=== PATIENT | male | born 1995 | race African-American/Black ===

== ENCOUNTER 2021-07-20 20:48 | Inpatient (IN) | payer SELFPAY ==
--- NOTE | 2021-07-20 21:31 | RAD REPORT ---
EXAM DESCRIPTION: RAD - Chest Single View - 07/20/2021 9:25 pm CLINICAL HISTORY: Cough;Fever COMPARISON: <Comparisons> FINDINGS: Lines: None. Lungs: Retrocardiac consolidation. Pleural: No significant pleural effusions or pneumothorax. Cardiac: The heart size is within normal limits. Bones: No acute fractures. Other: IMPRESSION: Retrocardiac consolidation presumably representing pneumonia in the setting of fever.
[2021-07-20 21:33] LABS: Basophils % 0.5 % (0-1.3); Hematocrit 36.5 % (39.6-49.0); Lymphocytes % 5.2 % (15.3-44.8); MPV 6.3 fL (7.6-11.3); RBC Red Blood Cell Count 4.37 M/uL (4.33-5.43)
[2021-07-20] MEDS ORDERED: ONDANSETRON 4 MG/2 ML VIAL ONE (21:36)
[2021-07-20] MEDS ORDERED: ACETAMINOPHEN 500 MG TAB ONE (21:36)
[2021-07-20] MEDS ORDERED: NA CHLORIDE 0.9% 1,000 ML ONE (21:36)
[2021-07-20 21:52] LABS: BUN Blood Urea Nitrogen 12 mg/dL (7-18); Bicarbonate 25 mmol/L (21-32); Glucose Level 105 mg/dL (74-106); Potassium 3.7 mmol/L (3.5-5.1); Sodium Level 138 mmol/L (136-145)
[2021-07-20 22:11] LABS: SARS-COV-2 RT PCR NEGATIVE (NEGATIVE)
--- NOTE | 2021-07-20 22:35 | ER ---
[facility] Sl[facility] Age: 25 yrs Sex: Male : 1995 Arrival Date: 07/20/2021 Time: 20:51 Bed 16 Private MD: Diagnosis: Necrotizing Pneumonia with lung abscess Presentation: 07/20 20:56 Chief complaint: Patient states: SOB. Coronavirus screen: Vaccine status: Patient df1 reports receiving the 2nd dose of the covid vaccine. The client reports previous COVID testing was negative. Date of collection: January 2021. Ebola Screen: Patient negative for fever greater than or equal to 101.5 degrees Fahrenheit, and additional compatible Ebola Virus Disease symptoms Patient denies exposure to infectious person. Patient denies travel to an Ebola-affected area in the 21 days before illness onset. Initial Sepsis Screen: Does the patient meet any 2 criteria? No. Patient's initial sepsis screen is negative. Risk Assessment: Do you want to hurt yourself or someone else? Patient reports no desire to harm self or others. Onset of symptoms was June 30, 2021. 20:56 Method Of Arrival: Ambulatory df1 20:56 Acuity: TRUE 3 df1 20:59 Note Pt dx with pneumonia on 06/30/21. Completed antibiotics and steroids. Symptom's df1 have worsened. 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 Pain 10/10 left chest and vomiting x 4 days. 23:27 Initial Sepsis Screen: Does the patient have a suspected source of infection? Yes: lh3 Productive cough/pneumonia. Triage Assessment: 23:27 General: Appears in no apparent distress. Behavior is calm, cooperative, appropriate lh3 for age. Respiratory: Reports Onset: The symptoms/episode began/occurred today, the patient has mild shortness of breath. Historical: - Allergies: 20:58 No Known Allergies; df1 - Home Meds: 20:58 None [Active]; df1 - PMHx: 20:58 None; df1 - PSHx: 20:58 None; df1 - Immunization history:: Adult Immunizations not up to date, Client reports receiving the Mushtaq \T\ Mushtaq single-dose vaccine. - Social history:: Smoking status: Patient denies any tobacco usage or history of. Patient uses street drugs, marijuana. Screenin:28 Abuse screen: Denies threats or abuse. Nutritional screening: No deficits noted. lh3 Tuberculosis screening: No symptoms or risk factors identified. Fall Risk IV access (20 points). Assessment: 21:28 General: Appears in no apparent distress. Behavior is calm, cooperative, appropriate lh3 for age. Pain: Complains of pain in chest. Cardiovascular: Rhythm is regular. Respiratory: Airway is patent Respiratory effort is even, unlabored, Vital Signs: 20:56 BP 140 / 94; Pulse 122; Resp 20; Temp 100.4; Pulse Ox 99% on R/A; Weight 91.63 kg; df1 Height 6 ft. 1 in. (185.42 cm); Pain 10; 21:30 BP 122 / 77; Pulse 101; Resp 18; Pulse Ox 96% on R/A; lh3 23:29 BP 131 / 66; Pulse 89; Resp 18; Pulse Ox 97% on R/A; lh3 07/21 00:06 Temp 98.9(O); lh3 07/20 20:56 Body Mass Index 26.65 (91.63 kg, 185.42 cm) df1 ED Course: 07/20 20:51 Patient arrived in ED. bp1 20:52 Zo[facility] Black FNP-C [facility]. kb 20:52 Rodolfo Estes MD is Attending Physician. kb 20:58 Triage completed. df1 21:08 Ivone Browning, RN is Primary Nurse. lh3 21:20 Inserted saline lock: 20 gauge in left antecubital area, using aseptic technique. Blood lh3 collected. 21:25 Chest Single View XRAY In Process Unspecified. EDMS 21:28 Basic Metabolic Panel Sent. lh3 21:28 CBC with Diff Sent. lh3 21:28 No provider procedures requiring assistance completed. lh3 21:28 Patient has correct armband on for positive identification. Bed in low position. Side lh3 rails up X 1. Side rails up X2. Child being held by parent. 21:55 Notified Nurse Practitioner and/or Physician Supercharger Mechanic of a critical lab result(s), bb D-Dimer of [id number] Zoie Black PACKAGER notified. 22:26 Blood Culture Adult (2) Sent. lh3 22:34 Adi Marcelino is Hospitalizing Provider. kb 23:27 Arm band placed on. lh3 23:30 initiated a transfer with Geno from [facility]. mw2 23:35 connected Zoie Black PACKAGER with the Yard Demurrage Clerk from [facility]. mw2 23:56 administrative approval given by Geno Mendez/ patient has been accepted to [address] bed 1242/ Dr. Crow accepted the patient in transfer/ report to be called to [phone]. 07/21 00:27 Patient transferred, IV remains in place. lh3 Administered Medications: 07/20 21:28 Drug: NS 0.9% 1000 ml Route: IV; Rate: 1000 ml; Site: left antecubital; 3 23:30 Follow up: Response: No adverse reaction; IV Status: Completed infusion 3 21:28 Drug: Zofran (Ondansetron) 4 mg Route: IVP; Site: left antecubital; 3 21:44 Follow up: Response: No adverse reaction; Nausea is decreased 3 21:28 Drug: Tylenol 1000 mg Route: PO; 3 23:30 Follow up: Response: No adverse reaction 3 22:26 Drug: Rocephin (cefTRIAXone) 1 grams Route: IV; Rate: calculated rate; Site: left 3 antecubital; 23:30 Follow up: Response: No adverse reaction 3 23:30 Follow up: IV Status: Completed infusion 3 23:46 Dru.375 grams of (Zosyn (piperacillin-tazobactam) 3.375 grams, NS 0.9% 100 ml) 3 Route: IVPB; Infused Over: 60 mins; Site: left antecubital; 07/21 01:05 Follow up: Response: No adverse reaction; IV Status: Completed infusion 3 Outcome: 07/20 22:34 Decision to Hospitalize by Provider. kb 23:34 ER care complete, transfer ordered by . ruel 07/21 00:28 Transferred by ground EMS to [facility], Transfer form completed. 3 X-rays sent w/ patient. Condition: good Instructed on the need for admit. 01:04 Patient left the ED. 3 Signatures: Dispatcher [employer] EDMS Zoie Black, EVY ELLSWORTH-Dora Ward, RN RN Kemar Toribio 2 Brandee Hill Latisha, RN RN 3 Rosaura Almaguer df1 Corrections: (The following items were deleted from the chart) 07/20 21:28 Influenza Screen (A \T\ B)+BA.LAB.BRZ drawn and sent. 3 EDMS 21: CORONAVIRUS+MR.LAB.BRZ drawn and sent. 3 EDMS 07/21 00:28 07/20 21:28 Patient has correct armband on for positive identification. Bed in low 3 position. Side rails up X 1. Side rails up X2. Child being held by parent. 3
--- NOTE | 2021-07-20 22:35 | EDPHYS ---
Physician Documentation [facility] Name: Slava Molina Age: 25 yrs Sex: Male : 1995 Arrival Date: 07/20/2021 Time: 20:51 Bed 16 Private MD: ED Physician Rodolfo Estes HPI: 07/20 21:47 This 25 yrs old Black Male presents to ER via Ambulatory with complaints of Breathing kb Difficulty, Abdominal Pain. 21:47 The patient's shortness of breath is aggravated by nothing, is alleviated by nothing. kb Associated signs and symptoms: Pertinent positives: chest pain, non-productive cough, fever, nausea, vomiting. Severity of symptoms: At their worst the symptoms were moderate in the emergency department the symptoms are unchanged. The patient has not experienced similar symptoms in the past. The patient has not recently seen a physician. 21:48 The patient or guardian reports cough, that is intermittent, described as moderate. kb Onset: The symptoms/episode began/occurred 2 week(s) ago. Severity of symptoms: At their worst the symptoms were moderate, in the emergency department the symptoms are unchanged. Modifying factors: The symptoms are alleviated by nothing, the symptoms are aggravated by nothing. Associated signs and symptoms: Pertinent positives: fever, nausea, vomiting. Pt reports he was diagnosed with pneumonia in the left lower lung 2 weeks ago. Took a course of zithromax, but is still having pain, cough, shortness of breath and fever. States he developed nausea and vomiting 4 days ago and hasn't been able to tolerate anything by mouth. Historical: - Allergies: 20:58 No Known Allergies; df1 - Home Meds: 20:58 None [Active]; df1 - PMHx: 20:58 None; df1 - PSHx: 20:58 None; df1 - Immunization history:: Adult Immunizations not up to date, Client reports receiving the Mushtaq \T\ Mushtaq single-dose vaccine. - Social history:: Smoking status: Patient denies any tobacco usage or history of. Patient uses street drugs, marijuana. ROS: 21:46 Cardiovascular: Negative for chest pain, palpitations, and edema. kb 21:46 Constitutional: Positive for fever, malaise. 21:46 Respiratory: Positive for cough, pleurisy, shortness of breath. 21:46 Abdomen/GI: Positive for nausea and vomiting. 21:46 All other systems are negative. Exam: 21:47 Constitutional: This is a well developed, well nourished patient who is awake, alert, kb and in no acute distress. Head/Face: Normocephalic, atraumatic. ENT: Moist Mucous membranes Cardiovascular: Regular rate and rhythm with a normal S1 and S2. No gallops, murmurs, or rubs. No pulse deficits. Respiratory: Respirations even and unlabored. No increased work of breathing, no retractions or nasal flaring. Abdomen/GI: Soft, non-tender. No distention Skin: Warm, dry with normal turgor. Normal color. MS/ Extremity: Pulses equal, no cyanosis. Neurovascular intact. Full, normal range of motion. Neuro: Awake and alert, GCS 15, oriented to person, place, time, and situation. Moves all extremities. Normal gait. Psych: Awake, alert, with orientation to person, place and time. Behavior, mood, and affect are within normal limits. Vital Signs: 20:56 BP 140 / 94; Pulse 122; Resp 20; Temp 100.4; Pulse Ox 99% on R/A; Weight 91.63 kg; df1 Height 6 ft. 1 in. (185.42 cm); Pain 10/10; 21:30 BP 122 / 77; Pulse 101; Resp 18; Pulse Ox 96% on R/A; lh3 23:29 BP 131 / 66; Pulse 89; Resp 18; Pulse Ox 97% on R/A; lh3 07/21 00:06 Temp 98.9(O); lh3 07/20 20:56 Body Mass Index 26.65 (91.63 kg, 185.42 cm) df1 MDM: 07/20 20:58 Patient medically screened. kb 21:46 Data reviewed: vital signs, nurses notes. Data interpreted: Pulse oximetry: on room air kb is 99 %. Interpretation: normal. 21:52 Counseling: I had a detailed discussion with the patient and/or guardian regarding: the kb historical points, exam findings, and any diagnostic results supporting the discharge/admit diagnosis, lab results, radiology results, the need for further work-up and treatment in the hospital. Physician consultation: Mao OLEARY was contacted at 21:52, regarding admission, to the medical/surgical unit. patient's condition, and will see patient in ED, shortly. 23:31 ED course: Ct reports revealed necrotizing pneumonia with lung abscess. Will transfer kb pt for higher level of care. 23:34 ED course: Dr Hernandez, marketing ambassador at [facility], accepts pt for consult.. kb 23:53 ED course: Dr Crow, hospitalist at [facility], accepts pt for transfer. kb 07/21 00:00 Differential diagnosis: pneumonia, Pneumothorax pulmonary edema, Pulmonary Embolism rn Sepsis. Antibiotic administration:. The patient's pulmonary embolism risk score was calculated as follows: the patients heart rate is greater than 100 beats per minute (1.5 Pts) Total Score: 0-2 points. This patient was found to be at low risk for a pulmonary embolism by using the Well's assessment criteria. Response to treatment: the patient's symptoms have mildly improved after treatment, and as a result, I will admit patient. 07/20 21:03 Order name: CBC with Diff; Complete Time: 23:08 kb 07/20 21:03 Order name: Basic Metabolic Panel; Complete Time: 21:52 kb 07/20 21:03 Order name: D-Dimer; Complete Time: 21:57 kb 07/20 21:40 Order name: Blood Culture Adult (2) kb 07/20 21:03 Order name: Chest Single View XRAY; Complete Time: 21:36 kb 07/20 21:55 Order name: CT Chest For PE Angio kb 07/20 22:11 Order name: COVID-19/FLU A+B; Complete Time: 22:14 EDMS 07/20 23:07 Order name: Manual Differential; Complete Time: 23:08 EDMS 07/20 21:03 Order name: IV Start; Complete Time: 21:28 kb 07/20 23:12 Order name: Vital Signs; Complete Time: 23:26 kb Administered Medications: 07/20 21:28 Drug: NS 0.9% 1000 ml Route: IV; Rate: 1000 ml; Site: left antecubital; 3 23:30 Follow up: Response: No adverse reaction; IV Status: Completed infusion lh3 21:28 Drug: Zofran (Ondansetron) 4 mg Route: IVP; Site: left antecubital; lh3 21:44 Follow up: Response: No adverse reaction; Nausea is decreased lh3 21:28 Drug: Tylenol 1000 mg Route: PO; 3 23:30 Follow up: Response: No adverse reaction 3 22:26 Drug: Rocephin (cefTRIAXone) 1 grams Route: IV; Rate: calculated rate; Site: left [facility] antecubital; 23:30 Follow up: Response: No adverse reaction 3 23:30 Follow up: IV Status: Completed infusion 3 23:46 Dru.375 grams of (Zosyn (piperacillin-tazobactam) 3.375 grams, NS 0.9% 100 ml) [facility] Route: IVPB; Infused Over: 60 mins; Site: left antecubital; 07/21 01:05 Follow up: Response: No adverse reaction; IV Status: Completed infusion [facility] Disposition: 00:00 Co-signature as Attending Physician, Rodolfo Estes MD I agree with the assessment and rn plan of care. PA/HOME CARE SCHEDULER's history reviewed, patient interviewed, and examined. HPI: 25-year-old male with recent diagnosis of pneumonia and status post antibiotics presents with worsening of symptoms. Denies smoking. Denies having any immunodeficiency. No family history of immunodeficiency. Not diabetic. Covid negative. My personal exam of patient reveals: Thin male, no acute distress, left-sided splinting with deep breath I agree with assessment and care plan and confirm the diagnosis (es) above. Disposition Summary: 07/20/21 23:34 Transfer Ordered Transfer Location: [facility] kb Reason: Higher level of care kb Condition: Stable(07/20/21 23:34) kb Problem: an ongoing problem(07/20/21 23:34) kb Symptoms: are unchanged(07/20/21 23:34) kb Accepting Physician: Dr. Crow(07/21/21 01:04) 3 Diagnosis - Necrotizing Pneumonia with lung abscess kb Forms: - Medication Reconciliation Form kb - SBAR form kb Signatures: Dispatcher [employer] Zoie Franco, COMMERCIAL REAL ESTATE ASSOCIATE-C COMMERCIAL REAL ESTATE ASSOCIATE-Rodolfo Landon MD MD rn Basinger, Emily, RN RN eb1 Ivone Browning RN RN lh3 Rosaura Almaguer df1 Corrections: (The following items were deleted from the chart) 07/20 21:31 21:03 CORONAVIRUS+MR.LAB.BRZ ordered. EDWA AUGUSTIN 21:03 Influenza Screen (A \T\ B)+BA.LAB.BRZ ordered. EDMS EDMS 23:10 22:34 kb eb1 23:13 23:10 204 eb1 eb1 23:31 22:34 Observation kb kb :31 22:34 Adi Marcelino kb kb :31 22:34 Telemetry/MedSurg (observation) kb kb : 22:34 Stable kb kb : 22:34 new kb kb 23:31 22:34 are unchanged kb kb 23:31 22:34 Standard kb kb 23:31 22:34 Pneumonia, unspecified organism - failed outpatient treatment kb kb : 23:13 eb1 kb 23:54 23:34 Dr lipscomb kb 07/21 01:04 07/20 23:54 Dr. Crow kb lh3
[2021-07-20] MEDS ORDERED: CEFTRIAXONE 1000 MG/VIAL ONE (22:41)
[2021-07-20 23:07] LABS: Blood Morphology Comment NOT SEEN (NOT SEEN); Platelet Estimate INCR
[2021-07-21] MEDS ORDERED: PIPERACIL/TAZO 3.375 GM VIAL IV ONE (00:04)
[2021-07-21] MEDS ORDERED: NA CHLORIDE 0.9% 100 ML ONE (00:04)
[2021-07-21 01:14] VITALS: BP 131/66; O2SAT 97
[2021-07-21 01:15] VITALS: TEMP 98.9
--- NOTE | 2021-07-21 13:27 | RAD REPORT ---
EXAM DESCRIPTION: CT - Chest For Pe Angio - 07/21/2021 6:17 am CLINICAL HISTORY: Chest pain;Dyspnea COMPARISON: None Available. TECHNIQUE: CTA of the chest obtained following the uncomplicated intravenous administration of iodin ated contrast. 3-D/MIP reformatted images of the chest available for evaluation. This exam was perfor med according to our departmental dose-optimization program, which includes automated exposure contro l, adjustment of the mA and/or kV according to patient size and/or use of iterative reconstruction te [place]. FINDINGS: Chest: Pulmonary arteries: Contrast bolus is adequate.No filling defects identified in the pulmonary arterie s to suggest pulmonary embolus. Thyroid: No abnormalities of the visualized thyroid. Great Vessels: Great vessels have normal anatomic configuration. Thoracic Aorta: No abnormalities of the thoracic aorta identified. Heart: No cardiomegaly, significant pericardial effusion, or coronary artery atherosclerosis Lymph Nodes: No enlarged mediastinal lymph nodes identified. Esophagus: No abnormalities of the esophagus identified. Other: No additional findings. Lungs: Dense consolidation in the left lower lobe with decreased enhancement and air bronchograms. Th ere is an air fluid level in the anterior aspect of the consolidation measuring approximately 3.9 x 2 .5 cm. Pleura: Small left pleural effusion. No pneumothorax. Trachea/Airways: No abnormalities of the visualized trachea or airways. Bones: No destructive osseous lesions. Upper Abdomen: Limited images of the upper abdomen demonstrate no definite abnormalities of visualize d portions of the liver and spleen. IMPRESSION: 1. No pulmonary embolism. 2. Dense consolidation in the left lower lobe with decreased enhancement and air bronchograms. Ther e is an air fluid level in the anterior aspect of the consolidation measuring approximately 3.9 x 2.5 cm. Findings concerning for necrotizing pneumonia with lung abscess. 3. Small left pleural effusion. Electronically signed by: Humberto Davila 07/20/2021 10:46 PM CDT Due to temporary technical issues with the PACS/Fluency reporting system, reports are being signed by the in house radiologists without review as a courtesy to insure prompt reporting. The interpreting radiologist is fully responsible for the content of the report.
== END 2021-07-22 01:00 | disposition home or self-care (01) | DRG 179 ==
LOC: ER 20:48 → ERHOLD 22:20 → OBSVTOIN 07-21 21:46
PROVIDERS: ADMIT Internal Medicine; ATTEND Internal Medicine
DX: J85.1 Abscess of lung with pneumonia (principal); Z20.822 Contact with and (suspected) exposure to COVID-19
CPT/HCPCS: 0240U; 36415; 71045; 71275; 80048; 85025; 85379; 87040; 96361; 96365; 96367; 96375; 99285; G0378; J2405; J2543; J7030; Q9967

== ENCOUNTER 2021-11-15 23:06 | Inpatient (IN) | payer SELFPAY ==
--- OUTSIDE RECORDS SUMMARY | 2021-11-15 23:13 | XMS REPORT | Continuity of Care Document ---
:1995 Author Organization [facility] t Address [address] [place] [address] Care Team Providers Name Role Phone Isaac KIRK Attending Clinician JAQUELINE Attending Clinician Unavailable DANI TALLEY Attending Clinician Unavailable ASHLEY ENNIS Attending Clinician Unavailable FAITH ROBERTS Attending Clinician Unavailable FANG Attending Clinician Unavailable SHY Admitting Clinician Unavailable Payers Payer Name Policy Type Policy Number Effective Date Expiration Date S [facility] CARE - [id number] GENERIC - ADEEL CARE Problems Condition Condition Condition Status Onset Resolution Last Treating Co mments Source Name Details Category Date Date Treatment Clinician Date 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 00:00: of 00 Medicin e Dysphonia Dysphonia Disease Active 2020-10 Real marcia 1-10 College 00:00: of 00 Medicin e Empyema, Empyema, Disease Active 2020-10 Reallo r left left 1-10 [facility]:00: of 00 Medicin e Dysphagia Dysphagia Disease Active 2020-10 Real marcia 1-09 College 00:00: of 00 Medicin e Torticolli Torticolli Disease Active 2020-10 [facility] s, acute s, acute 0-29 Colleg e 00:00: of 00 Medicin e ARDS ARDS Disease Active 2020-10 [facility] (adult (adult 0-25 College respirator respirator 00:00: of y distress y distress 00 Me dicin syndrome) syndrome) e (HCCode) (HCCode) Acute Acute Disease Active 2020-10 [facility] hypoxemic hypoxemic 0-25 [facility] respirator respirator 00:00: of y failure y failure 00 Medi debra (HCCode) (HCCode) e Acute Acute Disease Active 2020-10 [facility] metabolic metabolic 0-25 [place] [facility] encephalop encephalop 00:00: of athy athy 00 Medicin e Necrotizin Necrotizin Disease Active 2020-10 B aylor g g 0-21 [place] pneumonia pneumonia 00:00: [facility] 00 Medici n e Allergies, Adverse Reactions, Alerts Allergy Allergy Status Severity Reaction(s) Onset Inactive Treating Comm ents Source Name Type Date Date Clinician NO KNOWN Allergy Active [facility] Social History Social Habit Start Date Stop Date Quantity Comments Source History [facility] ge Alcohol Binge of Medicine History [facility] ge Alcohol Comment of Medici ne History [facility] ge Alcohol Std Drinks of Med icine Alcohol intake 2021-09-15 2021-09-15 Lifetime [facility] Col lege 00:00:00 00:00:00 non-drinker of Medicine (finding) Tobacco use and 2021-08-18 2021-08-18 Smokeless tobacco [facility] exposure 00:00:00 00:00:00 non-user of Medicine History [facility] 2021-08-18 2021-08-18 1 [facility] ge Alcohol Frequency 00:00:00 00:00:00 of Medi cine Sex Ass[birth year] [facility] Co llege 00:00:00 00:00:00 of Medicine Smoking Status Start Date Stop Date Source Never smoked tobacco [facility] [place] of Medicine Medications Ordered Filled Start Stop Current Ordering Indication Dosage Frequency Signature Comments Components Source Medication Medication Date Date Medication? Clinician (SIG) Name Name acetaminoph 2020-10 Yes [id number] 12.5mL Take 12.5 [facility] en-codeine 1-18 mL by College 120-12 mg/5 00:00: mouth of mL solution 00 every 6 Medic in hours as e needed for Pain. acetaminoph 2020-10 Yes [id number] 12.5mL Take 12.5 [facility] en-codeine 1-18 mL by College 120-12 mg/5 00:00: mouth of mL solution 00 every 6 Medic in hours as e needed for Pain. mupirocin 2020-10 No 1g Apply 1 g [facility] (BACTROBAN) 10-16 11-24 topically Co llege 2 % 00:00: 05:59 daily. of ointment 00 :00 Medicin e ondansetron 2020-10 Yes as needed. [facility] (ZOFRAN) 4 1-14 College MG/5ML 00:00: of solution 00 Medicin e ondansetron 2020-10 Yes as needed. [facility] (ZOFRAN) 4 1-14 College MG/5ML 00:00: of solution 00 Medicin e amoxicillin 2020-10- No 10mL Take 10 mL Gama -clavulanat 10-11 11-28 by mouth Col lege e 00:00: 05:59 two times of (AUGMENTIN) 00 :00 daily. Medici n 400-57 e MG/5ML suspension traMADol 2020-10 No 100mg Take 100 Real marcia HCl 100 MG 10-11 11-18 mg by College TABS 00:00: 00:00 mouth. of 00 :00 Medicin e Immunizations Ordered Immunization Filled Immunization Date Status Commen ts Source Name Name [facility] 2021-03-04 Completed [facility] Del mayorga SARS-CoV-2 00:00:00 of Medicine Vaccination [employer] 2021-03-04 Completed [facility] stan SARS-CoV-2 00:00:00 of Medicine Vaccination Vital Signs Vital Name Observation Time Observation Value Comments Source Systolic blood 2021-09-15 18:07:00 123 mm[Hg] [facility] pressure Medicine Diastolic blood 2021-09-15 18:07:00 81 mm[Hg] [facility] Medicine Heart rate 2021-09-15 18:07:00 58 /min [facility] Body temperature 2021-09-15 18:07:00 37.06 [facility] Body height 2021-09-15 18:07:00 182.9 cm [facility] Body weight 2021-09-15 18:07:00 89.359 kg [facility] BMI 2021-09-15 18:07:00 26.72 kg/m2 [facility] Systolic blood 2021-08-18 20:59:00 134 mm[Hg] [facility] pressure Medicine Diastolic blood 2021-08-18 20:59:00 85 mm[Hg] [facility] pressure Medicine Heart rate 2021-08-18 20:59:00 79 /min [facility] Body temperature 2021-08-18 20:59:00 36.94 [facility] Body height 2021-08-18 20:59:00 182.9 cm [facility] Body weight 2021-08-18 20:59:00 85.73 kg [facility] BMI 2021-08-18 20:59:00 25.63 kg/m2 [facility] HEIGHT 2021-08-16 11:39:00 180.3 cm WEIGHT 2021-08-16 11:39:00 84.823 kg HEIGHT 2021-08-13 20:20:00 180.3 cm HEIGHT 2021-08-13 20:20:00 180.3 cm WEIGHT 2021-08-08 09:12:00 63.1 kg WEIGHT 2021-07-30 07:00:00 87.5 kg WEIGHT 2021-07-28 22:00:00 89.2 kg WEIGHT 2021-07-28 07:00:00 92.4 kg WEIGHT 2021-07-27 07:00:00 92.4 kg WEIGHT 2021-07-27 06:00:00 92.4 kg WEIGHT 2021-07-26 06:00:00 92.1 kg HEIGHT 2021-07-21 02:45:00 185.4 cm WEIGHT 2021-07-21 02:45:00 92.08 kg WEIGHT 2021-08-08 09:12:00 63.1 kg WEIGHT 2021-07-30 07:00:00 87.5 kg WEIGHT 2021-07-28 22:00:00 89.2 kg WEIGHT 2021-07-28 07:00:00 92.4 kg WEIGHT 2021-07-27 07:00:00 92.4 kg WEIGHT 2021-07-27 06:00:00 92.4 kg WEIGHT 2021-07-26 06:00:00 92.1 kg HEIGHT 2021-07-21 02:45:00 185.4 cm WEIGHT 2021-07-21 02:45:00 92.08 kg Procedures This patient has no known procedures. Plan of Care Planned Activity Planned Date Details Comments Source Future Scheduled 2021-09-20 HPV VACCINE (1 - [facility] of Test 10:15:34 Male 2-dose series) Medicine [code = HPV VACCINE (1 - Male 2-dose series)] Future Scheduled 2021-09-20 BMI FOLLOW UP PLAN [facility] of Test 10:15:34 [code = BMI FOLLOW Medicine UP PLAN] Future Scheduled 2021-09-20 Hepatitis C [facility] [place] [facility] of Test 10:15:34 screening Medicine (procedure) [code = 729120999] Future Scheduled 2021-09-20 TETANUS SHOT (ADULT) [facility] of Test 10:15:34 [code = TETANUS SHOT Medicin e (ADULT)] Future Scheduled 2021-09-20 COVID-19 Vaccine (2 [facility] or [facility] of Test 10:15:34 - Booster for Medicine Alexa series) [code = COVID-19 Vaccine (2 - Booster for Alexa series)] Future Scheduled 2021-09-20 FLU VACCINE > 6 [facility] C [facility]lege of Test 10:15:34 MONTHS [code = FLU Medicine VACCINE > 6 MONTHS] Future Scheduled 2021-08-27 HPV VACCINE (1 - [facility] of Test 09:41:27 Male 2-dose series) Medicine [code = HPV VACCINE (1 - Male 2-dose series)] Future Scheduled 2021-08-27 BMI FOLLOW UP PLAN [facility] of Test 09:41:27 [code = BMI FOLLOW Medicine UP PLAN] Future Scheduled 2021-08-27 Hepatitis C [facility] [place] [facility] of Test 09:41:27 screening Medicine (procedure) [code = 651497702] Future Scheduled 2021-08-27 TETANUS SHOT (ADULT) [facility] of Test 09:41:27 [code = TETANUS SHOT Medicin e (ADULT)] Future Scheduled 2021-08-27 COVID-19 Vaccine (2 [facility] of Test 09:41:27 - Booster for Medicine Alexa series) [code = COVID-19 Vaccine (2 - Booster for Alexa series)] Future Scheduled 2021-08-27 FLU VACCINE > 6 [facility] C [facility]lege of Test 09:41:27 MONTHS [code = FLU Medicine VACCINE > 6 MONTHS] Encounters Start End Encounter Admission Attending Care Care Encounter Source Date/Time Date/Time Type Type Clinicians Facility Department ID 2021-09-15 2021-09-15 Office JALYN Gray [id number] [facility] 11:45:00 15:01:14 Visit Jose AMBULATOR [id number] College Y [id number] of [id number] [facility] 810 e 2021-08-18 2021-08-18 Office MIKE Gray [id number] [facility] 14:30:00 16:35:53 Visit Jose AMBULATOR [id number] College Y [id number] of [id number] [facility] 810 e 2021-08-16 2021-08-16 Outpatient [facility] [id number] [facility] 10:51:26 10:51:26 JALEESA 2021-08-13 2021-08-13 Emergency ER MAYANK [facility] Emergency [id number] SLE 20:24:00 23:23:00 RABIA 2021-07-21 2021-08-11 Inpatient ER ARMANDO [facility] Pulmonology [id number] SLE 01:59:00 15:51:00 TRACY 2021-08-09 2021-08-09 Outpatient JAQUELINE [facility] [id number] SLE 00:00:00 00:00:00 JALEESA 2021 2021 Outpatient BELLA PARSONS [facility] [id number] SLE 00:00:00 00:00:00 JALEESA 2021-07-21 2021-07-21 Outpatient [facility] [id number] [facility] 01:59:00 23:59:00 Colleg e of Medicin e 2021-07-21 2021-07-21 Outpatient [facility] [id number] [facility] 01:59:00 01:59:00 Colleg e of Medicin e 2020-05-10 2020-05-10 Emergency FANG, [facility] 064 [id number] [place] 00:00:00 00:00:[address] MARITZA [address] Results Test Description Test Time Test Comments Results Result Comments Source BLOOD CULTURE, AFB ISOLATOR 2021-09-16 13:19:18 Test Item Value Reference Range Interpretation Comme nts CULTURE (BEAKER) (test code = 1095) No acid-fast bacilli isolated i n 42 days AFB CULTURE + SMEAR (NON-SPUTUM)2021-09-16 13:18:08 Test Item Value Reference Range Interpretation Comments CULTURE (BEAKER) (test No acid-fast bacilli code = 1095) isolated in 42 days AFB SMEAR (BEAKER) No acid fast bacilli (test code = 994) seen FUNGUS CULTURE + [id number] 09:00:56 Test Item Value Reference Interpretation Comments Range CULTURE (BEAKER) A <1+ Odalys albicans (test code = 1095) CULTURE (BEAKER) MYCOBACTERIUM A Mycobacter [facility] speciesMost (test code = 1095) SPECIES closely r esembles* - Mycobacterium phocaicumIdenti fication and susceptibil ity performed by:[facility], Dept. of Microb iology Research, Dr[facility], [address] [place] [address] [place] [id number] Amikacin (test code mcg/mL S = 1) Cefoxitin (test mcg/mL S code = 68) Ciprofloxacin (test mcg/mL I code = 7) Clarithromycin S (test code = 42) Doxycycline (test mcg/mL S code = 15) Imipenem (test code mcg/mL S = 19) Linezolid (test mcg/mL S code = 40) Moxifloxacin (test mcg/mL S code = 36) Tigecycline (test mcg/mL See_Comment [Automate d message] The code = 133) system which ge nerated this result tra nsmitted reference range : Susceptible >0- 0 mcg/mL, No Interpretati ons Established <=0 . The reference range was not used to interpr et this result as normal/abnormal . 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 This species is from the M.mucogenicum group and is not recognized as a cause of chronic lung disease.AFB CULTURE + SMEAR (NON-SPUTUM)2021-09-09 11:47:07 Test Item Value Reference Range Interpretation Comments CULTURE (BEAKER) (test No acid-fast bacilli code = 1095) isolated in 42 days AFB SMEAR (BEAKER) No acid fast bacilli (test code = 994) seen AFB CULTURE + SMEAR (NON-SPUTUM)2021-09-09 11:47:05 Test Item Value Reference Range Interpretation Comments CULTURE (BEAKER) (test No acid-fast bacilli code = 1095) isolated in 42 days AFB SMEAR (BEAKER) No acid fast bacilli (test code = 994) seen FUNGUS CULTURE + [id number] 23:23:49 Test Item Value Reference Range Interpretation Comments CULTURE (BEAKER) (test No fungus isolated in code = 1095) 28 days FUNGUS SMEAR (BEAKER) No fungi seen (test code = 1406) FUNGUS CULTURE + [id number] 01:47:26 Test Item Value Reference Range Interpretation Comments CULTURE (BEAKER) (test No fungus isolated in code = 1095) 28 days FUNGUS SMEAR (BEAKER) No fungal elements seen (test code = 1406) RAD, CHEST, 1 VIEW, NON [id number] 22:26:00Reason for exam:->NAUSEAReason for exam:->EMESISShould this be performed at the bedside?->Yes [facility] 1995 Sex: MFINAL REPORT Chest one view. Clinical history: Nausea and emesis. Comparison: Chest radiograph 08/11/2021. Technique: A single frontal view of the chest was obtained. Findings: The cardiomediastinal contours are normal. There is a small left pleural effusion. There is airspace opacity in the left lung base, which may represent atelectasis and/or pneumonia. There isno pneumothorax or pulmonary edema.The patient's hand partially obscures the upper abdomen.The osseous structures are unremarkable. Impression: Small left pleural effusion.Left lower lobe opacity, which may represent atelectasis and/or pneumonia. Signed: Nayely Lanzaeport Verified Date/Time: 08/13/2021 22:26:46 [id number] 21:53:44 Test Item Value Reference Range Interpretation Comments LIPASE (BEAKER) (test code = 749) 29 U/L 8-78 Branch Billing Payroll Clerk ID - DBBASIC METABOLIC [id number] 21:53:43 Test Item Value Reference Range Interpretation Comments SODIUM (BEAKER) 137 meq/L 136-145 (test code = 381) POTASSIUM (BEAKER) 3.8 meq/L 3.5-5.1 (test code = 379) CHLORIDE (BEAKER) 100 meq/L 98-107 (test code = 382) CO2 (BEAKER) (test 26 meq/L 22-29 code = 355) BLOOD UREA NITROGEN 6 mg/dL 7-21 L (BEAKER) (test code = 354) CREATININE (BEAKER) 0.66 mg/dL 0.57-1.25 (test code = 358) GLUCOSE RANDOM 92 mg/dL 70-105 (BEAKER) (test code = 652) CALCIUM (BEAKER) 9.2 mg/dL 8.4-10.2 (test code = 697) EGFR (BEAKER) (test 178 mL/min/1.73 ESTIM ATED GFR IS code = 1092) sq m NOT ACCURATE CREATININE CLEARANCE IN PREDICTING GLOMERULAR FILTRATION RATE . ESTIMATED GFR I S NOT APPLICABLE FOR DIALYSIS PATIEN TS. Branch Billing Payroll Clerk ID - DBHEPATIC FUNCTION [id number] 21:53:43 Test Item Value Reference Range Interpretation Comments TOTAL PROTEIN (BEAKER) (test code = 7.8 gm/dL 6.0-8.3 770) ALBUMIN (BEAKER) (test code = 1145) 3.6 g/dL 3.5-5.0 BILIRUBIN TOTAL (BEAKER) (test code 0.8 mg/dL 0.2-1.2 = 377) BILIRUBIN DIRECT (BEAKER) (test 0.4 mg/dL 0.1-0.5 code = 706) ALKALINE PHOSPHATASE (BEAKER) (test 65 U/L 40-150 code = 346) AST (SGOT) (BEAKER) (test code = 19 U/L 5-34 353) ALT (SGPT) (BEAKER) (test code = 21 U/L 6-55 347) Branch Billing Payroll Clerk ID - DBCBC W/PLT COUNT & AUTO [id number] 21:41:43 Test Item Value Reference Range Interpretation Comments WHITE BLOOD CELL COUNT (BEAKER) 7.1 K/ L 3.5-10.5 (test code = 775) RED BLOOD CELL COUNT (BEAKER) 4.16 M/ L 4.63-6.08 L (test code = 761) HEMOGLOBIN (BEAKER) (test code = 11.8 GM/DL 13.7-17.5 L 410) HEMATOCRIT (BEAKER) (test code = 37.1 % 40.1-51.0 L 411) MEAN CORPUSCULAR VOLUME (BEAKER) 89.2 fL 79.0-92.2 (test code = 753) MEAN CORPUSCULAR HEMOGLOBIN 28.4 pg 25.7-32.2 (BEAKER) (test code = 751) MEAN CORPUSCULAR HEMOGLOBIN CONC 31.8 GM/DL 32.3-36.5 L (BEAKER) (test code = 752) RED CELL DISTRIBUTION WIDTH 13.8 % 11.6-14.4 (BEAKER) (test code = 412) PLATELET COUNT (BEAKER) (test 415 K/CU MM 150-450 code = 756) MEAN PLATELET VOLUME (BEAKER) 8.2 fL 9.4-12.4 L (test code = 754) NUCLEATED RED BLOOD CELLS 0 /100 WBC 0-0 (BEAKER) (test code = 413) NEUTROPHILS RELATIVE PERCENT 59 % (BEAKER) (test code = 429) LYMPHOCYTES RELATIVE PERCENT 23 % (BEAKER) (test code = 430) MONOCYTES RELATIVE PERCENT 8 % (BEAKER) (test code = 431) EOSINOPHILS RELATIVE PERCENT 9 % (BEAKER) (test code = 432) BASOPHILS RELATIVE PERCENT 1 % (BEAKER) (test code = 437) NEUTROPHILS ABSOLUTE COUNT 4.17 K/ L 1.78-5.38 (BEAKER) (test code = 670) LYMPHOCYTES ABSOLUTE COUNT 1.67 K/ L 1.32-3.57 (BEAKER) (test code = 414) MONOCYTES ABSOLUTE COUNT (BEAKER) 0.60 K/ L 0.30-0.82 (test code = 415) EOSINOPHILS ABSOLUTE COUNT 0.62 K/ L 0.04-0.54 H (BEAKER) (test code = 416) BASOPHILS ABSOLUTE COUNT (BEAKER) 0.06 K/ L 0.01-0.08 (test code = 417) IMMATURE GRANULOCYTES-RELATIVE 0 % 0-1 PERCENT (BEAKER) (test code = 2801) RAD, CHEST, 1 VIEW, NON [id number] 09:55:00Reason for exam:->follow-upShould this be performed at the bedside?->Yes [facility] 1995 Sex: MFINAL REPORT CHEST AP PORTABLE COMPARISON STUDY: 08/07/2021 History provided: Follow-up assessment Heart size normal. Lungs clear and vascularity normal. Midline in place on the left with catheter tip at the level of the axillary vein. Signed: Jean Paul Ortega MDReport Verified Date/Time: 08/11/2021 09:55:03 Reading Location: [facility] Radiology Reading Room POCT-GLUCOSE [id number] 06:20:48 Test Item Value Reference Range Interpretation Comments POC-GLUCOSE METER 96 mg/dL 70-110 : TESTED A T [facility] 6720 (BEAKER) (test code = [place], 1538) [id number]: Branch Billing Payroll Clerk/Techni mayela ID = [id number] for SINA RIOS [id number] 05:30:55 Test Item Value Reference Range Interpretation Comments PHOSPHORUS (BEAKER) (test code = 4.9 mg/dL 2.3-4.7 H 604) Branch Billing Payroll Clerk ID - ROSS MBASIC METABOLIC [id number] 05:30:54 Test Item Value Reference Range Interpretation Comments SODIUM (BEAKER) 139 meq/L 136-145 (test code = 381) POTASSIUM (BEAKER) 3.5 meq/L 3.5-5.1 (test code = 379) CHLORIDE (BEAKER) 103 meq/L 98-107 (test code = 382) CO2 (BEAKER) (test 26 meq/L 22-29 code = 355) BLOOD UREA NITROGEN 8 mg/dL 7-21 (BEAKER) (test code = 354) CREATININE (BEAKER) 0.65 mg/dL 0.57-1.25 (test code = 358) GLUCOSE RANDOM 87 mg/dL 70-105 (BEAKER) (test code = 652) CALCIUM (BEAKER) 9.1 mg/dL 8.4-10.2 (test code = 697) EGFR (BEAKER) (test 181 mL/min/1.73 ESTIM ATED GFR IS code = 1092) sq m NOT ACCURATE CREATININE CLEARANCE IN PREDICTING GLOMERULAR FILTRATION RATE . ESTIMATED GFR I S NOT APPLICABLE FOR DIALYSIS PATIEN TS. Branch Billing Payroll Clerk ID - ROSS [id number] 05:30:54 Test Item Value Reference Range Interpretation Comments MAGNESIUM (BEAKER) (test code = 1.9 mg/dL 1.6-2.6 627) Branch Billing Payroll Clerk ID - ROSS MSARS-COV2/RT-PCR ([facility])2021-08-10 19:21:43 Test Item Value Reference Range Interpretation Comments SARS-COV2/RT-PCR (test code = Negative Negative [id number]) Negative result for this test determines that SARS-CoV-2 RNA was not present in the specimen above the Limit of Detection (LOD). However, Negative results do not preclude SARS-CoV-2 infection and should not be used as the sole basis for treatment or patient management decisions. Negative results must be combined with clinical observations, patient history, and epidemiological information. A false negative result may occur if a specimen is improperly collected, transported, or handled. A false negative result should be considered if patient's recent exposures or clinical presentation indicate that COVID-19 (SARS-CoV-2) is likely and diagnostic tests for other causes of illness are negative. Re-testing should be considered in cases of suspected false negatives.The limit of detection for this assay is 100 copies/mL.This SARS-CoV-2 test is a real-time RT_PCR test intended for the qualitative detection of nucleic acid from SARS-CoV-2 in a nasopharyngeal swab specimen collected from individuals suspected of COVID-19 by their healthcare provider.This test has not been Food and Drug Administration (FDA) cleared or approved. This is a modified version of an approved Emergency Use Authorization (EUA) and is in the process of review by the FDA. Once authorized by the FDA, the issued EUA will be e ffective until the declaration that circumstances exist justifying the authorization of the emergency use of in vitro diagnostic tests for detection and/or diagnosis of COVID-19 is terminated under Section 564(b)(2) of the Act or the EUA is revoked under Section 564(g) of the Act.Testing was performedusing the I[facility]ra SARS-CoV-2 assay.Fact Sheet for Healthcare Providers:https://www.molecular.ibarra/siobhan/RT SARS-CoV-2 HCP Fact Sheet 51- 211407.pdfFact Sheet for Healthcare Patients:https://www.molecular.ibarra/siobhan/RT SARS-CoV-2 Patient Fact Sheet EN 51-297586H4.pdfPOCT-GLUCOSE [id number] 18:18:54 Test Item Value Reference Range Interpretation Comments POC-GLUCOSE METER 102 mg/dL 70-110 : TESTED A T [facility] 6720 (SEKOU) (test code = [place], 1538) [address]: Branch Billing Payroll Clerk/Techni mayela ID = [id number] for Sa ntos, Radhika U/S, ABDOMINAL, [id number] 17:39:00Reason for exam:->superior aspect of PEG site, patient with 10/10 pain [facility] : 1995 Sex: MFINAL REPORT TECHNIQUE: Grayscale ultrasound of the abdomen. INDICA TION: superior aspect of PEG site, patient with 10/10 pain COMPARISON: None. FINDINGS: MIDLINE VASCULATURE: The visualized inferior vena cava is patent. Portal vein is patent and measures 1.1 cm in diameter. The maximum visualized aortic diameter is 1.7 cm. LIVER: The liver is normal in size and echogenicity with smooth contour. The liver measures 15.2 cm in length. No focal lesions. BILIARY:Gallbladder: No gallstones or sludge. No gallbladder wall thickening, pericholecystic fluid, or distention. Negative sonographic Rdz sign.Common bile duct measures 0.6 cm, within normal limits. No intrahepatic biliary ductal dilatation. PANCREAS: Incompletely visualized due to overlying bowel gas. SPLEEN: No splenomegaly. The spleen measures 11 cm in length. PERITONEUM: No free fluid. There is a left-sided pleural effusion. KIDNEYS: The kidneys are normal in size. No hydronephrosis. No sonographically evident solid mass lesion. The right kidney measures 11.9 cm in length. The left kidney measures 8.7 cm in length. IMPRESSION:Left-sided pleural effusion. Otherwise normal abdominal ultrasound.. Signed:Neto Hayden Verified Date/Time: 08/10/2021 17:39:10 POCT-GLUCOSE [id number] 12:51:44 Test Item Value Reference Range Interpretation Comments POC-GLUCOSE METER 120 mg/dL 70-110 H : TESTED A T [facility] 6720 (BEAKER) (test code = [place], 1538) [address]: Branch Billing Payroll Clerk/Techni mayela ID = [id number] for Radhika Tate POCT-GLUCOSE [id number] 06:11:34 Test Item Value Reference Range Interpretation Comments POC-GLUCOSE METER 73 mg/dL 70-110 : TESTED A T [facility] 6720 (BEAKER) (test code = [place], 1538) [address]: Branch Billing Payroll Clerk/Techni mayela ID = [id number] for SINA RIOS BASIC METABOLIC [id number] 05:48:35 Test Item Value Reference Range Interpretation Comments SODIUM (BEAKER) 141 meq/L 136-145 (test code = 381) POTASSIUM (BEAKER) 3.7 meq/L 3.5-5.1 (test code = 379) CHLORIDE (BEAKER) 104 meq/L 98-107 (test code = 382) CO2 (BEAKER) (test 26 meq/L 22-29 code = 355) BLOOD UREA NITROGEN 7 mg/dL 7-21 (BEAKER) (test code = 354) CREATININE (BEAKER) 0.67 mg/dL 0.57-1.25 (test code = 358) GLUCOSE RANDOM 85 mg/dL 70-105 (BEAKER) (test code = 652) CALCIUM (BEAKER) 9.0 mg/dL 8.4-10.2 (test code = 697) EGFR (BEAKER) (test 175 mL/min/1.73 ESTIM ATED GFR IS code = 1092) sq m NOT ACCURATE CREATININE CLEARANCE IN PREDICTING GLOMERULAR FILTRATION RATE . ESTIMATED GFR I S NOT APPLICABLE FOR DIALYSIS PATIEN TS. Branch Billing Payroll Clerk ID - PIAYA LCBC W/PLT COUNT & AUTO [id number] 05:23:37 Test Item Value Reference Range Interpretation Comments WHITE BLOOD CELL COUNT (BEAKER) 7.0 K/ L 3.5-10.5 (test code = 775) RED BLOOD CELL COUNT (BEAKER) 3.89 M/ L 4.63-6.08 L (test code = 761) HEMOGLOBIN (BEAKER) (test code = 11.0 GM/DL 13.7-17.5 L 410) HEMATOCRIT (BEAKER) (test code = 33.9 % 40.1-51.0 L 411) MEAN CORPUSCULAR VOLUME (BEAKER) 87.1 fL 79.0-92.2 (test code = 753) MEAN CORPUSCULAR HEMOGLOBIN 28.3 pg 25.7-32.2 (BEAKER) (test code = 751) MEAN CORPUSCULAR HEMOGLOBIN CONC 32.4 GM/DL 32.3-36.5 (BEAKER) (test code = 752) RED CELL DISTRIBUTION WIDTH 14.0 % 11.6-14.4 (BEAKER) (test code = 412) PLATELET COUNT (BEAKER) (test 601 K/CU MM 150-450 H code = 756) MEAN PLATELET VOLUME (BEAKER) 8.3 fL 9.4-12.4 L (test code = 754) NUCLEATED RED BLOOD CELLS 0 /100 WBC 0-0 (BEAKER) (test code = 413) NEUTROPHILS RELATIVE PERCENT 40 % (BEAKER) (test code = 429) LYMPHOCYTES RELATIVE PERCENT 43 % (BEAKER) (test code = 430) MONOCYTES RELATIVE PERCENT 11 % (BEAKER) (test code = 431) EOSINOPHILS RELATIVE PERCENT 4 % (BEAKER) (test code = 432) BASOPHILS RELATIVE PERCENT 1 % (BEAKER) (test code = 437) NEUTROPHILS ABSOLUTE COUNT 2.83 K/ L 1.78-5.38 (BEAKER) (test code = 670) LYMPHOCYTES ABSOLUTE COUNT 3.02 K/ L 1.32-3.57 (BEAKER) (test code = 414) MONOCYTES ABSOLUTE COUNT (BEAKER) 0.78 K/ L 0.30-0.82 (test code = 415) EOSINOPHILS ABSOLUTE COUNT 0.29 K/ L 0.04-0.54 (BEAKER) (test code = 416) BASOPHILS ABSOLUTE COUNT (BEAKER) 0.09 K/ L 0.01-0.08 H (test code = 417) IMMATURE GRANULOCYTES-RELATIVE 0 % 0-1 PERCENT (BEAKER) (test code = 2801) POCT-GLUCOSE [id number] 00:18:50 Test Item Value Reference Range Interpretation Comments POC-GLUCOSE METER 89 mg/dL 70-110 : TESTED A T [facility] 6720 (BEAKER) (test code = [place], 1538) 515[address]: Branch Billing Payroll Clerk/Techni mayela ID = [id number] for FIONA Conner SINA POCT-GLUCOSE [id number] 17:40:08 Test Item Value Reference Range Interpretation Comments POC-GLUCOSE METER 104 mg/dL 70-110 : TESTED A T [facility] 6720 (BEAKER) (test code = [facility], [facility]) 21527: Branch Billing Payroll Clerk/Techni mayela ID = [id number] for JENNIFER FERREIRANEKA POCT-GLUCOSE [id number] 12:12:09 Test Item Value Reference Range Interpretation Comments POC-GLUCOSE METER 73 mg/dL 70-110 : TESTED A T [facility] 6720 (BEAKER) (test code = [facility], [facility]) 67624: Branch Billing Payroll Clerk/Techni mayela ID = [id number] for WILL IA, TYNEKA POCT-GLUCOSE [id number] 06:36:49 Test Item Value Reference Range Interpretation Comments POC-GLUCOSE METER 93 mg/dL 70-110 : TESTED A T [facility] 6720 (BEAKER) (test code = [facility], [facility]) 45655: Branch Billing Payroll Clerk/Techni mayela ID = [id number] for FIONA S, SINA POCT-GLUCOSE [id number] 00:51:31 Test Item Value Reference Range Interpretation Comments POC-GLUCOSE METER 105 mg/dL 70-110 : TESTED A T [facility] 6720 (BEAKER) (test code = [facility], [facility]) 86528: Branch Billing Payroll Clerk/Techni mayela ID = [id number] for DA VIS, SINA POCT-GLUCOSE [id number] 12:31:51 Test Item Value Reference Range Interpretation Comments POC-GLUCOSE METER 87 mg/dL 70-110 : TESTED A T [facility] 6720 (BEAKER) (test code = [facility], [facility]) 40873: Branch Billing Payroll Clerk/Techni mayela ID = [id number] for WILL IA, TYNEKA BASIC METABOLIC [id number] 07:13:13 Test Item Value Reference Range Interpretation Comments SODIUM (BEAKER) 138 meq/L 136-145 (test code = 381) POTASSIUM (BEAKER) 3.8 meq/L 3.5-5.1 (test code = 379) CHLORIDE (BEAKER) 106 meq/L 98-107 (test code = 382) CO2 (BEAKER) (test 24 meq/L 22-29 code = 355) BLOOD UREA NITROGEN 2 mg/dL 7-21 L (BEAKER) (test code = 354) CREATININE (BEAKER) 0.65 mg/dL 0.57-1.25 (test code = 358) GLUCOSE RANDOM 95 mg/dL 70-105 (BEAKER) (test code = 652) CALCIUM (BEAKER) 8.7 mg/dL 8.4-10.2 (test code = 697) EGFR (BEAKER) (test 181 mL/min/1.73 ESTIM ATED GFR IS code = 1092) sq m NOT ACCURATE CREATININE CLEARANCE IN PREDICTING GLOMERULAR FILTRATION RATE . ESTIMATED GFR I S NOT APPLICABLE FOR DIALYSIS PATIEN TS. Branch Billing Payroll Clerk ID - JESSA FCBC W/PLT COUNT & AUTO [id number] 07:02:51 Test Item Value Reference Range Interpretation Comments WHITE BLOOD CELL COUNT (BEAKER) 6.5 K/ L 3.5-10.5 (test code = 775) RED BLOOD CELL COUNT (BEAKER) 4.21 M/ L 4.63-6.08 L (test code = 761) HEMOGLOBIN (BEAKER) (test code = 12.0 GM/DL 13.7-17.5 L 410) HEMATOCRIT (BEAKER) (test code = 37.9 % 40.1-51.0 L 411) MEAN CORPUSCULAR VOLUME (BEAKER) 90.0 fL 79.0-92.2 (test code = 753) MEAN CORPUSCULAR HEMOGLOBIN 28.5 pg 25.7-32.2 (BEAKER) (test code = 751) MEAN CORPUSCULAR HEMOGLOBIN CONC 31.7 GM/DL 32.3-36.5 L (BEAKER) (test code = 752) RED CELL DISTRIBUTION WIDTH 13.4 % 11.6-14.4 (BEAKER) (test code = 412) PLATELET COUNT (BEAKER) (test 675 K/CU MM 150-450 H code = 756) MEAN PLATELET VOLUME (BEAKER) 8.2 fL 9.4-12.4 L (test code = 754) NUCLEATED RED BLOOD CELLS 0 /100 WBC 0-0 (BEAKER) (test code = 413) NEUTROPHILS RELATIVE PERCENT 41 % (BEAKER) (test code = 429) LYMPHOCYTES RELATIVE PERCENT 40 % (BEAKER) (test code = 430) MONOCYTES RELATIVE PERCENT 11 % (BEAKER) (test code = 431) EOSINOPHILS RELATIVE PERCENT 7 % (BEAKER) (test code = 432) BASOPHILS RELATIVE PERCENT 2 % (BEAKER) (test code = 437) NEUTROPHILS ABSOLUTE COUNT 2.64 K/ L 1.78-5.38 (BEAKER) (test code = 670) LYMPHOCYTES ABSOLUTE COUNT 2.58 K/ L 1.32-3.57 (BEAKER) (test code = 414) MONOCYTES ABSOLUTE COUNT (BEAKER) 0.69 K/ L 0.30-0.82 (test code = 415) EOSINOPHILS ABSOLUTE COUNT 0.42 K/ L 0.04-0.54 (BEAKER) (test code = 416) BASOPHILS ABSOLUTE COUNT (BEAKER) 0.10 K/ L 0.01-0.08 H (test code = 417) IMMATURE GRANULOCYTES-RELATIVE 1 % 0-1 PERCENT (BEAKER) (test code = 2801) [id number] 07:02:14 Test Item Value Reference Range Interpretation Comments PROTIME (BEAKER) (test 15.7 seconds 11.9-14.2 H code = 759) INR (BEAKER) (test 1.27 See_Comment [Automat ed code = 370) message] The sy stem which generated this result transmitted reference range : <=5.90. The reference range was not used to interpret this result as normal/abnormal . PARTIAL THROMBOPLASTIN 31.9 seconds 22.5-36.0 TIME (BEAKER) (test code = 760) RECOMMENDED COUMADIN/WARFARIN INR THERAPY RANGESSTANDARD DOSE: 2.0 - 3.0 Includes: PROPHYLAXIS forvenous thrombosis, systemic embolization; TREATMENT for venous thrombosis and/or pulmonary embolus.HIGH RISK: Target INR is 2.5-3.5 for patients with mechanical heart valves.POCT-GLUCOSE [id number] 06:19:56 Test Item Value Reference Range Interpretation Comments POC-GLUCOSE METER 93 mg/dL 70-110 : TESTED A T [facility] 6720 ([place]) (test code = [place], 1538) 71276: Branch Billing Payroll Clerk/Techni mayela ID = [id number] for Zo mayorga (contract)[place] POCT-GLUCOSE [id number] 00:18:42 Test Item Value Reference Range Interpretation Comments POC-GLUCOSE METER 130 mg/dL 70-110 H : [facility] 6720 [facility] (test code [facility], = 1538) 62062: Branch Billing Payroll Clerk/Techni mayela ID = [id number] for Zo mayorga (contract)[place] POCT-GLUCOSE [id number] 05:18:50 Test Item Value Reference Range Interpretation Comments POC-GLUCOSE METER 86 mg/dL 70-110 : TESTED A T [facility] 6720 ([facility]) (test code = [facility] Vo [facility], 1538) 03608: Branch Billing Payroll Clerk/Techni mayela ID = [id number] for GUSTAVO LESYAJAIRA RAD, CHEST, 1 VIEW, NON [id number] 04:45:00Reason for exam:->s/p left vatsShould this be performed at the bedside?->Yes [facility] 1995 Sex: MFINAL REPORT CLINICAL INDICATION: Status post left VATS Comparison: 08/06/2021 The cardiomediastinal contours are stable. Left-sided parenchymal and pleural opacities are unchanged. There is no pneumothorax. A left midline tip overlies the left axillary region. Signed: Ortiz Garcia Verified Date/Time: 08/07/2021 04:45:35 POCT-GLUCOSE [id number] 23:20:27 Test Item Value Reference Range Interpretation Comments POC-GLUCOSE METER 87 mg/dL 70-110 : TESTED A T [facility] 6720 ([facility]) (test code = [facility], 1538) 44263: Branch Billing Payroll Clerk/Techni mayela ID = [id number] for YAJAIRA NAIR POCT-GLUCOSE [id number] 18:27:13 Test Item Value Reference Range Interpretation Comments POC-GLUCOSE METER 113 mg/dL 70-110 H : TESTED A T [facility] 6720 (BEAKER) (test code = [facility], 1538) 21523: Branch Billing Payroll Clerk/Techni mayela ID = [id number] for PITER WILLIS POCT-GLUCOSE [id number] 12:25:44 Test Item Value Reference Range Interpretation Comments POC-GLUCOSE METER 102 mg/dL 70-110 : TESTED A T [facility] 6720 (BEAKER) (test code = [facility], 1538) 33357: Branch Billing Payroll Clerk/Techni mayela ID = [id number] for PITER WILLIS BASIC METABOLIC [id number] 06:44:00 Test Item Value Reference Range Interpretation Comments SODIUM (BEAKER) 140 meq/L 136-145 (test code = 381) POTASSIUM (BEAKER) 3.9 meq/L 3.5-5.1 Specimen slightly (test code = 379) hemolyzed CHLORIDE (BEAKER) 107 meq/L 98-107 (test code = 382) CO2 (BEAKER) (test 23 meq/L 22-29 code = 355) BLOOD UREA NITROGEN 4 mg/dL 7-21 L (BEAKER) (test code = 354) CREATININE (BEAKER) 0.58 mg/dL 0.57-1.25 Specimen slightly (test code = 358) hemolyzed GLUCOSE RANDOM 94 mg/dL 70-105 (BEAKER) (test code = 652) CALCIUM (BEAKER) 8.9 mg/dL 8.4-10.2 (test code = 697) EGFR (BEAKER) (test 207 mL/min/1.73 ESTIM ATED GFR IS code = 1092) sq m NOT ACCURATE CREATININE CLEARANCE IN PREDICTING GLOMERULAR FILTRATION RATE . ESTIMATED GFR I S NOT APPLICABLE FOR DIALYSIS PATIEN TS. Branch Billing Payroll Clerk ID - JAY JAY WCBC W/PLT COUNT & AUTO [id number] 06:28:06 Test Item Value Reference Range Interpretation Comments WHITE BLOOD CELL COUNT (BEAKER) 7.5 K/ L 3.5-10.5 (test code = 775) RED BLOOD CELL COUNT (BEAKER) 4.20 M/ L 4.63-6.08 L (test code = 761) HEMOGLOBIN (BEAKER) (test code = 11.8 GM/DL 13.7-17.5 L 410) HEMATOCRIT (BEAKER) (test code = 36.9 % 40.1-51.0 L 411) MEAN CORPUSCULAR VOLUME (BEAKER) 87.9 fL 79.0-92.2 (test code = 753) MEAN CORPUSCULAR HEMOGLOBIN 28.1 pg 25.7-32.2 (BEAKER) (test code = 751) MEAN CORPUSCULAR HEMOGLOBIN CONC 32.0 GM/DL 32.3-36.5 L (BEAKER) (test code = 752) RED CELL DISTRIBUTION WIDTH 13.1 % 11.6-14.4 (BEAKER) (test code = 412) PLATELET COUNT (BEAKER) (test 787 K/CU MM 150-450 H code = 756) MEAN PLATELET VOLUME (BEAKER) 8.3 fL 9.4-12.4 L (test code = 754) NUCLEATED RED BLOOD CELLS 0 /100 WBC 0-0 (BEAKER) (test code = 413) NEUTROPHILS RELATIVE PERCENT 47 % (BEAKER) (test code = 429) LYMPHOCYTES RELATIVE PERCENT 35 % (BEAKER) (test code = 430) MONOCYTES RELATIVE PERCENT 10 % (BEAKER) (test code = 431) EOSINOPHILS RELATIVE PERCENT 5 % (BEAKER) (test code = 432) BASOPHILS RELATIVE PERCENT 1 % (BEAKER) (test code = 437) NEUTROPHILS ABSOLUTE COUNT 3.57 K/ L 1.78-5.38 (BEAKER) (test code = 670) LYMPHOCYTES ABSOLUTE COUNT 2.66 K/ L 1.32-3.57 (BEAKER) (test code = 414) MONOCYTES ABSOLUTE COUNT (BEAKER) 0.78 K/ L 0.30-0.82 (test code = 415) EOSINOPHILS ABSOLUTE COUNT 0.35 K/ L 0.04-0.54 (BEAKER) (test code = 416) BASOPHILS ABSOLUTE COUNT (BEAKER) 0.08 K/ L 0.01-0.08 (test code = 417) IMMATURE GRANULOCYTES-RELATIVE 1 % 0-1 PERCENT (BEAKER) (test code = 2801) RAD, CHEST, 1 VIEW, NON [id number] 06:14:00Reason for exam:->s/p left vatsShould this be performed at the bedside?->Yes [facility] 1995 Sex: MFINAL REPORT RAD, CHEST, 1 VIEW, NON DEPT INDICATION: s/p left vats COMPARISON: Prior day's exam FINDINGS: Portable frontal view of the chest. IMPRESSION: Support Lines: None Lungs and pleura: Trace left effusion and retrocardiac airspace disease are decreased in the interim No significant pneumothorax. Heart and mediastinum: Stable contours. Additional findings:None. Signed: Linsey Tian Verified Date/Time: 08/06/2021 06:14:55 -GLUCOSE [id number] 05:42:12 Test Item Value Reference Range Interpretation Comments POC-GLUCOSE METER 89 mg/dL 70-110 : TESTED A [facility] [address] ([place]) (test code = [facility], 1538) 07705: Branch Billing Payroll Clerk/Techni mayela ID = [id number] for GUSTAVO LES, YAJAIRA POCT-GLUCOSE [id number] 00:41:04 Test Item Value Reference Range Interpretation Comments POC-GLUCOSE METER 82 mg/dL 70-110 : TESTED A T [facility] 67[address] ([place]) (test code = [facility], 1538) 45042: Branch Billing Payroll Clerk/Techni mayela ID = [id number] for GUSTAVO LES, YAJAIRA POCT-GLUCOSE [id number] 18:27:25 Test Item Value Reference Range Interpretation Comments POC-GLUCOSE METER 88 mg/dL 70-110 : TESTED A T [facility] 6720 (BEAKER) (test code = [place] [facility], 1538) 47758: Branch Billing Payroll Clerk/Techni mayela ID = [id number] for WILL IAMS, TYNEKA FL, ESOPH, SWALLOW FUNCTION, WITH CINE OR [id number] 14:37:00Reason for exam:->dysphagia, aspiration [facility] : 1995 Sex: MFINAL REPORT Modified barium swallow exam with speech pathology se rvice CLINICAL HISTORY: dysphagia, aspiration IMPRESSION: Please see the speech pathology service report for details. Barium contrast of multiple consistencies is given to the patient to swallow. Fluoroscopic observation is performed during swallowing. Aspiration is noted. Fluoro time: 2.7 minutes Number of images: 9 Signed: Daniel Cee Verified Date/Time: 08/05/2021 14:37:14 Reading Location: [address] Consult Reading Room POCT-GLUCOSE [id number] 13:03:42 Test Item Value Reference Range Interpretation Comments POC-GLUCOSE METER 109 mg/dL 70-110 : TESTED A T [facility] 6720 (BEAKER) (test code = [place], 1538) 79060: Branch Billing Payroll Clerk/Techni mayela ID = [id number] for [place] FUNGUS CULTURE, BLOOD (ISOLATOR)2021-08-05 10:46:57 Test Item Value Reference Range Interpretation Comments CULTURE (BEAKER) (test No fungus isolated code = 1095) RAD, CHEST, 1 VIEW, NON [id number] 08:57:00Reason for exam:->s/p left vatsShould this be performed at the bedside?->Yes [facility] 1995 Sex: MFINAL REPORT Chest, 1 view. History: Status post left VATS. Compari son: 08/04/2021. IMPRESSION: Again identified are increased opacities within the left lower lung zone which may reflect atelectasis an/or trace effusion, similar to the prior examination. There is no evidence for new large focal consolidation, pneumothorax, or significant volume pleural effusion. The c ardiomediastinal silhouette is stable in appearance. No acute osseous abnormality is identified. Signed: Sharad Murray Verified Date/Time: 08/05/2021 08:57:03 POCT-GLUCOSE [id number] 06:35:14 Test Item Value Reference Range Interpretation Comments POC-GLUCOSE METER 103 mg/dL 70-110 : TESTED A T [facility] [address] ([place]) (test code = [employer] [facility], 1538) 70836: Branch Billing Payroll Clerk/Techni mayela ID = [id number] for SINA SUNG POCT-GLUCOSE [id number] 00:20:21 Test Item Value Reference Range Interpretation Comments POC-GLUCOSE METER 78 mg/dL 70-110 : TESTED A T [facility] [address] ([place]) (test code = [facility] Vo [facility], 1538) 95764: Branch Billing Payroll Clerk/Techni mayela ID = [id number] for SINA RIOS POCT-GLUCOSE [id number] 17:32:09 Test Item Value Reference Range Interpretation Comments POC-GLUCOSE METER 83 mg/dL 70-110 : TESTED A T [facility] 6720 (BEAKER) (test code = [place] [facility], 1538) 57055: Branch Billing Payroll Clerk/Techni mayela ID = [id number] for WILL IAALEXIS PARKKA POCT-GLUCOSE [id number] 12:19:12 Test Item Value Reference Range Interpretation Comments POC-GLUCOSE METER 93 mg/dL 70-110 : TESTED A T [facility] 6720 (BEAKER) (test code = [place] Vo [facility], 1538) 39737: Branch Billing Payroll Clerk/Techni mayela ID = [id number] for WILL IAMS, TYNEKA RAD, CHEST, 1 VIEW, NON [id number] 09:23:00Reason for exam:->s/p left vatsShould this be performed at the bedside?->Yes [facility] 1995 Sex: MFINAL REPORT Chest, 1 view. History: Status post left VATS. Compari son: 08/03/2021. IMPRESSION: Stable appearing opacities again noted within the left lower lung zone.There is a suspected small left pleural effusion. The right lung is clear. There is no evidence for pneumothorax. The cardiomediastinal silhouette is stable in appearance. No acute osseous abnormality is identified. Signed: Sharad Murray Verified Date/Time: 08/04/2021 09:23:03 Reading Location: [facility] Radiology Reading Room FUNGAL [id number] 07:33:52 Test Item Value Reference Interpretation Comments Range FUNGAL PANEL Refer to AUTOVERIFICATION individual COMPONENT (test code = Aspergillus, 3175) Blastomyces, Coccidioides & Histoplasma Ab results. ASPERGILLUS FLAVUS AB Testin g done at ([facility]) (test code = [facility] [id number]) Diagnostics ASPERGILLUS NIGER AB Testing done at ([facility]) (test code = [facility] [id number]) Diagnostics ASPERGILLUS FUMIGATUS Testin g done at AB ([facility]) (test code [facility] = [id number]) Diagnostics BASIC METABOLIC [id number] 07:13:15 Test Item Value Reference Range Interpretation Comments SODIUM (BEAKER) 140 meq/L 136-145 (test code = 381) POTASSIUM (BEAKER) 3.9 meq/L 3.5-5.1 (test code = 379) CHLORIDE (BEAKER) 105 meq/L 98-107 (test code = 382) CO2 (BEAKER) (test 24 meq/L 22-29 code = 355) BLOOD UREA NITROGEN 7 mg/dL 7-21 (BEAKER) (test code = 354) CREATININE (BEAKER) 0.64 mg/dL 0.57-1.25 (test code = 358) GLUCOSE RANDOM 88 mg/dL 70-105 (BEAKER) (test code = 652) CALCIUM (BEAKER) 9.1 mg/dL 8.4-10.2 (test code = 697) EGFR (BEAKER) (test 185 mL/min/1.73 ESTIM ATED GFR IS code = 1092) sq m NOT ACCURATE CREATININE CLEARANCE IN PREDICTING GLOMERULAR FILTRATION RATE . ESTIMATED GFR I S NOT APPLICABLE FOR DIALYSIS PATIEN TS. Branch Billing Payroll Clerk ID - ROSS MSARS-COV2/RT-PCR ([facility])2021-08-04 06:52:58 Test Item Value Reference Range Interpretation Comments SARS-COV2/RT-PCR (test code = Negative Negative [id number]) Negative result for this test determines that SARS-CoV-2 RNA was not present in the specimen above the Limit of Detection (LOD). However, Negative results do not preclude SARS-CoV-2 infection and should not be used as the sole basis for treatment or patient management decisions. Negative results must be combined with clinical observations, patient history, and epidemiological information. A false negative result may occur if a specimen is improperly collected, transported, or handled. A false negative result should be considered if patient's recent exposures or clinical presentation indicate that COVID-19 (SARS-CoV-2) is likely and diagnostic tests for other causes of illness are negative. Re-testing should be considered in cases of suspected false negatives.The limit of detection for this assay is 100 copies/mL.This SARS-CoV-2 test is a real-time RT_PCR test intended for the qualitative detection of nucleic acid from SARS-CoV-2 in a nasopharyngeal swab specimen collected from individuals suspected of COVID-19 by their healthcare provider.This test has not been Food and Drug Administration (FDA) cleared or approved. This is a modified version of an approved Emergency Use Authorization (EUA) and is in the process of review by the FDA. Once authorized by the FDA, the issued EUA will be e ffective until the declaration that circumstances exist justifying the authorization of the emergency use of in vitro diagnostic tests for detection and/or diagnosis of COVID-19 is terminated under Section 564(b)(2) of the Act or the EUA is revoked under Section 564(g) of the Act.Testing was performedusing the [facility] SARS-CoV-2 assay.Fact Sheet for Healthcare Providers:https://www.molecular.ibarra/siobhan/RT SARS-CoV-2 HCP Fact Sheet 51- 086064.pdfFact Sheet for Healthcare Patients:https://www.molecular.ibarra/siobhan/RT SARS-CoV-2 Patient Fact Sheet EN 51-147639H5.pdfCBC W/PLT COUNT & AUTO [id number] 06:48:08 Test Item Value Reference Range Interpretation Comments WHITE BLOOD CELL COUNT (BEAKER) 10.6 K/ L 3.5-10.5 H (test code = 775) RED BLOOD CELL COUNT (BEAKER) 4.07 M/ L 4.63-6.08 L (test code = 761) HEMOGLOBIN (BEAKER) (test code = 11.5 GM/DL 13.7-17.5 L 410) HEMATOCRIT (BEAKER) (test code = 36.1 % 40.1-51.0 L 411) MEAN CORPUSCULAR VOLUME (BEAKER) 88.7 fL 79.0-92.2 (test code = 753) MEAN CORPUSCULAR HEMOGLOBIN 28.3 pg 25.7-32.2 (BEAKER) (test code = 751) MEAN CORPUSCULAR HEMOGLOBIN CONC 31.9 GM/DL 32.3-36.5 L (BEAKER) (test code = 752) RED CELL DISTRIBUTION WIDTH 12.6 % 11.6-14.4 (BEAKER) (test code = 412) PLATELET COUNT (BEAKER) (test 905 K/CU MM 150-450 H code = 756) MEAN PLATELET VOLUME (BEAKER) 8.5 fL 9.4-12.4 L (test code = 754) NUCLEATED RED BLOOD CELLS 0 /100 WBC 0-0 (BEAKER) (test code = 413) NEUTROPHILS RELATIVE PERCENT 58 % (BEAKER) (test code = 429) LYMPHOCYTES RELATIVE PERCENT 26 % (BEAKER) (test code = 430) MONOCYTES RELATIVE PERCENT 8 % (BEAKER) (test code = 431) EOSINOPHILS RELATIVE PERCENT 5 % (BEAKER) (test code = 432) BASOPHILS RELATIVE PERCENT 1 % (BEAKER) (test code = 437) NEUTROPHILS ABSOLUTE COUNT 6.15 K/ L 1.78-5.38 H (BEAKER) (test code = 670) LYMPHOCYTES ABSOLUTE COUNT 2.80 K/ L 1.32-3.57 (BEAKER) (test code = 414) MONOCYTES ABSOLUTE COUNT (BEAKER) 0.86 K/ L 0.30-0.82 H (test code = 415) EOSINOPHILS ABSOLUTE COUNT 0.48 K/ L 0.04-0.54 (BEAKER) (test code = 416) BASOPHILS ABSOLUTE COUNT (BEAKER) 0.12 K/ L 0.01-0.08 H (test code = 417) IMMATURE GRANULOCYTES-RELATIVE 2 % 0-1 H PERCENT (BEAKER) (test code = 2801) POCT-GLUCOSE [id number] 06:00:01 Test Item Value Reference Range Interpretation Comments POC-GLUCOSE METER 98 mg/dL 70-110 : TESTED Bonifacio Vásquez [facility] 6720 (BEAKER) (test code = [place], 1538) [id number]: Branch Billing Payroll Clerk/Techni mayela ID = [id number] for GUSTAVO CIERA YAJAIRA POCT-GLUCOSE [id number] 00:34:39 Test Item Value Reference Range Interpretation Comments POC-GLUCOSE METER 87 mg/dL 70-110 : TESTED A T [facility] 6720 (BEAKER) (test code = [facility], 1538) [id number]: Branch Billing Payroll Clerk/Techni mayela ID = [id number] for YAJAIRA NAIR POCT-GLUCOSE [id number] 17:12:38 Test Item Value Reference Range Interpretation Comments POC-GLUCOSE METER 76 mg/dL 70-110 : TESTED A T [facility] 6720 (BEAKER) (test code = [facility], 1538) [id number]: Branch Billing Payroll Clerk/Techni mayela ID = [id number] for Bravo os, Radhika POCT-GLUCOSE [id number] 12:20:32 Test Item Value Reference Range Interpretation Comments POC-GLUCOSE METER 83 mg/dL 70-110 : TESTED A T [facility] 6720 (BEAKER) (test code = [facility] Tavo [facility], 1538) [id number]: Branch Billing Payroll Clerk/Techni mayela ID = [id number] for Bravo os, Radhika ANAEROBIC [id number] 08:44:25 Test Item Value Reference Range Interpretation Comments CULTURE (BEAKER) (test No anaerobes isolated code = 1095) RAD, CHEST, 1 VIEW, NON [id number] 08:12:00Reason for exam:->s/p left vatsShould this be performed at the bedside?->Yes [facility] CENTERName: AURA BARBA : 1995 Sex: MFINAL REPORT CLINICAL HISTORY: s/p left vats TECHNIQUE: 1 view of the chest. COMPARISON: 2021 IMPRESSION: The previous trace left apical pneumothorax is not definitively seen. Mild left asymmetric lung opacities are again noted with a small left pleural effusion.The cardiomediastinal silhouette is magnified by technique. The feeding tube has been removed. Signed: Paula Henry MDReport Verified Date/Time: 08/03/2021 08:12:26 Reading Location: [facility] Radiology Reading Room CT, SOFT TISSUE NECK, [id number] 06:54:00 Unlisted Reason for Exam - Click Yes and Enter Reason Below->No [facility] 1995 Sex: MAddendum BeginsREPORT STATUS:A Addendum:Error in dictation, impression should read:Mild edema and narrowing of the subglottic airway, nonspecific. Otherwise the aerodigestive tract is patent. Prominence of the adenoids with trace prevertebral edema, nonspecific however possibly reactive in the setting of enteric tube. No drainable fluid collections are identified. Sig loreta: Kristine Sotomayor MDReport Verified Date/Time: 08/03/2021 06:54:38 Addendum EndsFINAL REPORTPATIENT ID: [id number] CT Neck with contrast. CLINICAL HISTORY: Neck deformity TECHNIQUE: Contiguousaxial images of the neck with intravenous contrast. This exam was performed according to the departmental dose optimization program which includes automated exposure control, adjustment of the mA and/or kV according to the patient size, and/or use of an iterative reconstruction technique. COMPARISON: None FINDINGS: There is no evidence of abnormal mass, enlarged lymphadenopathy, or drainable fluid collection in the soft tissues of the neck. Scattered subcentimeter lymph nodes are seen in the bilateral jugulodigastric and posterior triangle regions. The salivary glands are symmetrical and unremarkable in appearance.The vascular structures in the neck are patent. Prominence of the adenoids is nonspecific and possibly reactive. There is mild edema and narrowing of the subglottic airway, nonspecific.Trace edema in the prevertebral soft tissues is nonspecific in the setting of enteric tube. The thyroid gland is unremarkable. An enteric tube is seen coursing inferiorly from the left knee air into the esophagus beyond the inferior margin of the film. Minimal polypoid mucosal thickening in the left ma xillary sinus. No obstructive paranasal sinus disease. Trace right mastoid air cell effusion. Visualized osseous structures are otherwise grossly unremarkable. No acute fracture deformity. There is a chest tube in the left upper lobe. Otherwise visualized lungs are unremarkable. Visualized intracranial contents are unremarkable. Intraorbital contents are unremarkable. IMPRESSION: Mild edema and narrowing of the subglottic airway, nonspecific. Otherwise the aerodigestive tract is patent. Prominence of the adenoids with trace prevertebral edema, nonspecific however possibly reactive in the setting of enteric tube. Drainable fluid collections are identified. Signed: Kristine Sotomayor Verified Date/Time: 08/01/2021 01:11:07 POCT-GLUCOSE METER 2021-08-03 06:40:07 Test Item Value Reference Range Interpretation Comments POC-GLUCOSE METER 86 mg/dL 70-110 : TESTED A T [facility] 6720 (BEAKER) (test code = ALOK Vo [facility], 1538) [id number]: Branch Billing Payroll Clerk/Techni mayela ID = [id number] for SINA RIOS CREATINE KINASE (CK)2021-08-03 06:31:57 Test Item Value Reference Range Interpretation Comments CREATINE KINASE TOTAL (BEAKER) (test 269 U/L 29-200 H code = 380) Branch Billing Payroll Clerk ID - ROSS [id number] 06:31:56 Test Item Value Reference Range Interpretation Comments MAGNESIUM (BEAKER) (test code = 2.0 mg/dL 1.6-2.6 627) Branch Billing Payroll Clerk ID - ROSS [id number] 06:31:56 Test Item Value Reference Range Interpretation Comments PHOSPHORUS (BEAKER) (test code = 3.4 mg/dL 2.3-4.7 604) Branch Billing Payroll Clerk ID - ROSS MBASIC METABOLIC [id number] 06:31:55 Test Item Value Reference Range Interpretation Comments SODIUM (BEAKER) 139 meq/L 136-145 (test code = 381) POTASSIUM (BEAKER) 4.0 meq/L 3.5-5.1 (test code = 379) CHLORIDE (BEAKER) 105 meq/L 98-107 (test code = 382) CO2 (BEAKER) (test 23 meq/L 22-29 code = 355) BLOOD UREA NITROGEN 10 mg/dL 7-21 (BEAKER) (test code = 354) CREATININE (BEAKER) 0.60 mg/dL 0.57-1.25 (test code = 358) GLUCOSE RANDOM 89 mg/dL 70-105 (BEAKER) (test code = 652) CALCIUM (BEAKER) 9.0 mg/dL 8.4-10.2 (test code = 697) EGFR (BEAKER) (test 199 mL/min/1.73 ESTIM ATED GFR IS code = 1092) sq m NOT ACCURATE CREATININE CLEARANCE IN PREDICTING GLOMERULAR FILTRATION RATE . ESTIMATED GFR I S NOT APPLICABLE FOR DIALYSIS PATIEN TS. Branch Billing Payroll Clerk ID Franck HAWKINS MCALCIUM, [id number] 05:08:40 Test Item Value Reference Range Interpretation Comments CALCIUM IONIZED (BEAKER) (test 1.14 mmol/L 1.12-1.27 code = 698) PH, BLOOD (BEAKER) (test code = 7.43 1810) POCT-GLUCOSE [id number] 01:37:33 Test Item Value Reference Range Interpretation Comments POC-GLUCOSE METER 88 mg/dL 70-110 : TESTED A T [facility] 6720 (BEAKER) (test code = ALOK Vo [facility], 1538) [id number]: Branch Billing Payroll Clerk/Techni mayela ID = [id number] for SINA RIOS POCT-GLUCOSE [id number] 17:30:47 Test Item Value Reference Range Interpretation Comments POC-GLUCOSE METER 101 mg/dL 70-110 : TESTED A T [facility] 6720 (BEAKER) (test code = ALOK Vo [facility], 1538) [id number]: Branch Billing Payroll Clerk/Techni mayela ID = [id number] for Radhika Tate POCT-GLUCOSE [id number] 12:18:33 Test Item Value Reference Range Interpretation Comments POC-GLUCOSE METER 82 mg/dL 70-110 : TESTED A T [facility] 6720 (BEAKER) (test code = [place], 1538) [id number]: Branch Billing Payroll Clerk/Techni mayela ID = [id number] for Radhika Tan RAD, CHEST, 1 VIEW, NON [id number] 07:38:00Reason for exam:->s/p left vatsShould this be performed at the bedside?->Yes [facility] 1995 Sex: MFINAL REPORT CLINICAL HISTORY: s/p left vats TECHNIQUE: 1 view of the chest. COMPARISON: 08/01/2021 IMPRESSION: The NGT has been replaced with a feeding tube below the diaphragm. A trace left apical pneumothorax is again suspected. Mild bilateral lung opacities are unchanged. Small left effusion is unchanged. The cardiomediastinal silhouette is magnified by technique.Signed: Paula Henry MDReport Verified Date/Time: 2021 07:38:43 Reading Location: [facility] Radiology Reading Room HEPATIC FUNCTION [id number] 07:15:50 Test Item Value Reference Range Interpretation Comments TOTAL PROTEIN (BEAKER) 8.1 gm/dL 6.0-8.3 Speci men slightly (test code = 770) hemolyzed ALBUMIN (BEAKER) (test 3.1 g/dL 3.5-5.0 L Speci men slightly code = 1145) hemolyzed BILIRUBIN TOTAL 0.5 mg/dL 0.2-1.2 Specimen sli ghtly (BEAKER) (test code = hemoly zed 377) BILIRUBIN DIRECT 0.2 mg/dL 0.1-0.5 Specimen sl ightly (BEAKER) (test code = hemoly zed 706) ALKALINE PHOSPHATASE 61 U/L 40-150 (BEAKER) (test code = 346) AST (SGOT) (BEAKER) 36 U/L 5-34 H Specimen slightly (test code = 353) hemolyzed ALT (SGPT) (BEAKER) 28 U/L 6-55 Specimen slightly (test code = 347) hemolyzed Branch Billing Payroll Clerk ID - ROSS MCREATINE KINASE (CK)2021 07:15:50 Test Item Value Reference Range Interpretation Comments CREATINE KINASE TOTAL (BEAKER) (test 292 U/L 29-200 H code = 380) Branch Billing Payroll Clerk ID - ROSS MBASIC METABOLIC [id number] 07:15:49 Test Item Value Reference Range Interpretation Comments SODIUM (BEAKER) 137 meq/L 136-145 (test code = 381) POTASSIUM (BEAKER) 3.7 meq/L 3.5-5.1 Specimen slightly (test code = 379) hemolyzed CHLORIDE (BEAKER) 103 meq/L 98-107 (test code = 382) CO2 (BEAKER) (test 23 meq/L 22-29 code = 355) ANION GAP (BEAKER) 15 meq/L (test code = 345) BLOOD UREA NITROGEN 11 mg/dL 7-21 (BEAKER) (test code = 354) CREATININE (BEAKER) 0.59 mg/dL 0.57-1.25 Specimen slightly (test code = 358) hemolyzed BUN/CREATININE RATIO 18.6 (BEAKER) (test code = 1800) GLUCOSE RANDOM 101 mg/dL 70-105 (BEAKER) (test code = 652) CALCIUM (BEAKER) 8.5 mg/dL 8.4-10.2 (test code = 697) EGFR (BEAKER) (test 203 mL/min/1.73 ESTIM ATED GFR IS code = 1092) sq m NOT ACCURATE CREATININE CLEARANCE IN PREDICTING GLOMERULAR FILTRATION RATE . ESTIMATED GFR I S NOT APPLICABLE FOR DIALYSIS PATIEN TS. Branch Billing Payroll Clerk ID - ROSS [id number] 07:15:48 Test Item Value Reference Range Interpretation Comments MAGNESIUM (BEAKER) 2.0 mg/dL 1.6-2.6 Specimen slightly (test code = 627) hemolyzed Branch Billing Payroll Clerk ID - ROSS [id number] 07:15:48 Test Item Value Reference Range Interpretation Comments PHOSPHORUS (BEAKER) 3.4 mg/dL 2.3-4.7 Specimen slightly (test code = 604) hemolyzed Branch Billing Payroll Clerk ID - ROSS MPOCT-GLUCOSE [id number] 06:15:52 Test Item Value Reference Range Interpretation Comments POC-GLUCOSE METER 89 mg/dL 70-110 : TESTED A T [facility] 6720 (BEAKER) (test code = [place], 1538) [id number]: Branch Billing Payroll Clerk/Techni mayela ID = [id number] for SINA RIOS CBC W/PLT COUNT & AUTO [id number] 05:43:21 Test Item Value Reference Range Interpretation Comments WHITE BLOOD CELL COUNT (BEAKER) 14.2 K/ L 3.5-10.5 H (test code = 775) RED BLOOD CELL COUNT (BEAKER) 3.88 M/ L 4.63-6.08 L (test code = 761) HEMOGLOBIN (BEAKER) (test code = 10.9 GM/DL 13.7-17.5 L 410) HEMATOCRIT (BEAKER) (test code = 34.1 % 40.1-51.0 L 411) MEAN CORPUSCULAR VOLUME (BEAKER) 87.9 fL 79.0-92.2 (test code = 753) MEAN CORPUSCULAR HEMOGLOBIN 28.1 pg 25.7-32.2 (BEAKER) (test code = 751) MEAN CORPUSCULAR HEMOGLOBIN CONC 32.0 GM/DL 32.3-36.5 L (BEAKER) (test code = 752) RED CELL DISTRIBUTION WIDTH 12.6 % 11.6-14.4 (BEAKER) (test code = 412) PLATELET COUNT (BEAKER) (test 802 K/CU MM 150-450 H code = 756) MEAN PLATELET VOLUME (BEAKER) 8.4 fL 9.4-12.4 L (test code = 754) NUCLEATED RED BLOOD CELLS 0 /100 WBC 0-0 (BEAKER) (test code = 413) NEUTROPHILS RELATIVE PERCENT 66 % (BEAKER) (test code = 429) LYMPHOCYTES RELATIVE PERCENT 17 % (BEAKER) (test code = 430) MONOCYTES RELATIVE PERCENT 7 % (BEAKER) (test code = 431) EOSINOPHILS RELATIVE PERCENT 6 % (BEAKER) (test code = 432) BASOPHILS RELATIVE PERCENT 1 % (BEAKER) (test code = 437) NEUTROPHILS ABSOLUTE COUNT 9.37 K/ L 1.78-5.38 H (BEAKER) (test code = 670) LYMPHOCYTES ABSOLUTE COUNT 2.42 K/ L 1.32-3.57 (BEAKER) (test code = 414) MONOCYTES ABSOLUTE COUNT (BEAKER) 1.01 K/ L 0.30-0.82 H (test code = 415) EOSINOPHILS ABSOLUTE COUNT 0.86 K/ L 0.04-0.54 H (BEAKER) (test code = 416) BASOPHILS ABSOLUTE COUNT (BEAKER) 0.11 K/ L 0.01-0.08 H (test code = 417) IMMATURE GRANULOCYTES-RELATIVE 3 % 0-1 H PERCENT (BEAKER) (test code = 2801) CALCIUM, [id number] 05:21:39 Test Item Value Reference Range Interpretation Comments CALCIUM IONIZED (BEAKER) (test 1.11 mmol/L 1.12-1.27 L code = 698) PH, BLOOD (BEAKER) (test code = 7.46 1810) RAD, ABDOMEN/KUB, 1 VIEW [id number] 05:00:00Reason for exam:->corpak placementShould this be performed at the bedside?->Yes [facility] 1995 Sex: MFINAL REPORT CLINICAL HISTORY: corpak placement TECHNIQUE: RAD, ABD OMEN/KUB, 1 VIEW AP COMPARISON: Plain radiograph the abdomen dated 07/23/2021. IMPRESSION: Oval removal the previously seen gastric decompression tube. Weighted tip feeding tube is seen looping in theregion of the pylorus with tip overlying the gastric antrum.Nonobstructive bowel gas pattern withoutdistended loops of bowel. Retained contrast material in the large bowel. No acute osseous abnormality. Bandlike airspace opacities in the bilateral lower lungs. Signed: Kristine Sotomayorort Verified Date/Time: 2021 05:00:23 RAD, ABDOMEN/KUB, 1 VIEW [id number] 04:59:00Reason for exam:->placement [facility] corpak[facility] : 1995 Sex: MFINAL REPORT CLINICAL HISTORY: placement of corpak TECHNIQUE: RAD, ABDOMEN/KUB, 1 VIEW AP COMPARISON: Plain radiograph the abdomen dated same day. IMPRESSION: Weightedtip feeding tube is seen looping in the region of the pylorus with tip overlying the gastric antrum.Nonobstructive bowel gas pattern without distended loops of bowel. Retained contrast material in the large bowel. No acute osseous abnormality. Bandlike airspace opacities in the bilateral lower lungs. Signed: Kristine Sotomayor MDRzarinaort Verified Date/Time: 2021 04:59:23 Electronically signedby: KRISTINE SOTOMAYOR MD on 2021 04:59 AMPOCT-GLUCOSE [id number] 18:22:18 Test Item Value Reference Range Interpretation Comments POC-GLUCOSE METER 92 mg/dL 70-110 : TESTED A T [facility] 6720 (BEKIMMY) (test code = [place], 1538) [id number]: Branch Billing Payroll Clerk/Techni mayela ID = [id number] for WASH MARJORIE ANDREWS RAD, CHEST, 1 VIEW, NON [id number] 16:05:00Reason for exam:->CT removal [facility] 1995 Sex: MFINAL REPORT CLINICAL HISTORY: CT removal TECHNIQUE: 1 view of the chest. COMPARISON: 08/01/2021 IMPRESSION: The left apical chest tube has been removed. A right axillary PICC line and NGT are again seen. There is a trace left apical pneumothorax. Mild left asymmetricairspace opacities and a small left pleural effusion are unchanged. The cardiomediastinal silhouetteis magnified by technique. Signed: Paula Henry MDReport Verified Date/Time: 08/01/2021 16:05:23 Reading Location: [facility] Radiology Reading Room FL, ESOPH, SWALLOW FUNCTION, WITH CINE OR [id number] 15:40:00Reason for exam:->dysphagia [facility] : 1995 Sex: MFINAL REPORT Modified barium swallow exam with speech pathology se rvice CLINICAL HISTORY: dysphagia IMPRESSION: Please see the speech pathology service report for details. Barium contrast of multiple consistencies is given to the patient to swallow. Fluoroscopic observation is performed during swallowing. Fluoro time: 1.9 minutes Number of images: 14 Signed: Daniel Cee Verified Date/Time: 08/01/2021 15:40:14 Reading Location: [address] Consult Reading Room POCT-GLUCOSE [id number] 12:15:28 Test Item Value Reference Range Interpretation Comments POC-GLUCOSE METER 120 mg/dL 70-110 H : TESTED Bonifacio T [facility] 6720 (BEAKER) (test code = EUGENEJESIKA Vo [facility], 1538) [id number]: Branch Billing Payroll Clerk/Techni mayela ID = [id number] for MERY CADET (CELLAVISION MANUAL DIFF)2021-08-01 10:48:11 Test Item Value Reference Range Interpretation Comments NEUTROPHILS - REL 78 % (CELLAVISION)(BEAKER) (test code = 2816) LYMPHOCYTES - REL 12 % (CELLAVISION)(BEAKER) (test code = 2817) MONOCYTES - REL 5 % (CELLAVISION)(BEAKER) (test code = 2818) EOSINOPHILS - REL 4 % (CELLAVISION)(BEAKER) (test code = 2819) MYELOCYTES - REL 1 % 0-0 H (CELLAVISION)(BEAKER) (test code = 2822) NEUTROPHILS - ABS 13.73 K/ul 1.78-5.38 H (CELLAVISION)(BEAKER) (test code = 2830) LYMPHOCYTES - ABS 2.11 K/ul 1.32-3.57 (CELLAVISION)(BEAKER) (test code = 2831) MONOCYTES - ABS 0.88 K/uL 0.30-0.82 H (CELLAVISION)(BEAKER) (test code = 2832) EOSINOPHILS - ABS 0.70 K/uL 0.04-0.54 H (CELLAVISION)(BEAKER) (test code = 2834) MYELOCYTES-ABS 0.18 K/uL 0.00-0.00 H (CELLAVISION)(BEAKER) (test code = 2837) TOTAL COUNTED (BEAKER) (test code 100 = 1351) WBC MORPHOLOGY (BEAKER) (test code Normal = 487) PLT MORPHOLOGY (BEAKER) (test code Normal = 486) POLYCHROMATOPHILLIC RBCS(BEAKER) 1+ few (test code = 478) ANISOCYTOSIS (BEAKER) (test code = 1+ few 961) MICROCYTES (BEAKER) (test code = 1+ few 965) SPHEROCYTES (BEAKER) (test code = 1+ few 768) TEAR DROP CELLS (BEAKER) (test 1+ few code = 481) BASOPHILIC STIPPLING (BEAKER) Present (test code = 473) ARTIFACT (CELLAVISION)(BEAKER) Present (test code = 3432) PLATELET CONCENTRATION Increased (CELLAVISION)(BEAKER) (test code = 3438) Branch Billing Payroll Clerk ID - Ruma Ray comments: Slide comments:CBC W/PLT COUNT & AUTO [id number] 10:48:09 Test Item Value Reference Range Interpretation Comments WHITE BLOOD CELL COUNT (BEAKER) 17.6 K/ L 3.5-10.5 H (test code = 775) RED BLOOD CELL COUNT (BEAKER) 4.05 M/ L 4.63-6.08 L (test code = 761) HEMOGLOBIN (BEAKER) (test code = 11.5 GM/DL 13.7-17.5 L 410) HEMATOCRIT (BEAKER) (test code = 35.9 % 40.1-51.0 L 411) MEAN CORPUSCULAR VOLUME (BEAKER) 88.6 fL 79.0-92.2 (test code = 753) MEAN CORPUSCULAR HEMOGLOBIN 28.4 pg 25.7-32.2 (BEAKER) (test code = 751) MEAN CORPUSCULAR HEMOGLOBIN CONC 32.0 GM/DL 32.3-36.5 L (BEAKER) (test code = 752) RED CELL DISTRIBUTION WIDTH 12.5 % 11.6-14.4 (BEAKER) (test code = 412) PLATELET COUNT (BEAKER) (test 827 K/CU MM 150-450 H code = 756) MEAN PLATELET VOLUME (BEAKER) 8.5 fL 9.4-12.4 L (test code = 754) NUCLEATED RED BLOOD CELLS 0 /100 WBC 0-0 (BEAKER) (test code = 413) RAD, CHEST, 1 VIEW, NON [id number] 08:41:00Reason for exam:->s/p left vatsShould this be performed at the bedside?->Yes [facility] 1995 Sex: MFINAL REPORT Chest one view. Clinical history: s/p left vats Willy rison: July 31, 2021 Discussion: A frontal chest is provided. Cardiomediastinal contours are unchanged. Lines and tubes are in stable position. Unchanged retrocardiac opacity. No large effusion.No pneumothorax. Signed: Daniel Cee Verified Date/Time: 08/01/2021 08:41:19 Reading Location: [address] Consult Reading Room BODY FLUID CULTURE + GRAM STAIN 2021-08-01 08:37:11 Test Item Value Reference Range Interpretation Comments CULTURE (BEAKER) (test code No growth = 1095) GRAM STAIN RESULT (BEAKER) 1+ WBCs (test code = 1123) GRAM STAIN RESULT (BEAKER) No organisms seen (test code = 75989) [id number] 07:10:53 Test Item Value Reference Range Interpretation Comments PHOSPHORUS (BEAKER) (test code = 3.5 mg/dL 2.3-4.7 604) Branch Billing Payroll Clerk ID - EMERSONCREATINE KINASE (CK)2021-08-01 07:10:53 Test Item Value Reference Range Interpretation Comments CREATINE KINASE TOTAL (BEAKER) (test 260 U/L 29-200 H code = 380) Branch Billing Payroll Clerk ID - EMERSONBASIC METABOLIC [id number] 07:10:52 Test Item Value Reference Range Interpretation Comments SODIUM (BEAKER) 139 meq/L 136-145 (test code = 381) POTASSIUM (BEAKER) 3.6 meq/L 3.5-5.1 (test code = 379) CHLORIDE (BEAKER) 103 meq/L 98-107 (test code = 382) CO2 (BEAKER) (test 29 meq/L 22-29 code = 355) BLOOD UREA NITROGEN 13 mg/dL 7-21 (BEAKER) (test code = 354) CREATININE (BEAKER) 0.60 mg/dL 0.57-1.25 (test code = 358) GLUCOSE RANDOM 122 mg/dL 70-105 H (BEAKER) (test code = 652) CALCIUM (BEAKER) 8.7 mg/dL 8.4-10.2 (test code = 697) EGFR (BEAKER) (test 201 mL/min/1.73 ESTIM ATED GFR IS code = 1092) sq m NOT ACCURATE CREATININE CLEARANCE IN PREDICTING GLOMERULAR FILTRATION RATE . ESTIMATED GFR I S NOT APPLICABLE FOR DIALYSIS PATIEN TS. Branch Billing Payroll Clerk ID - [id number] 07:10:51 Test Item Value Reference Range Interpretation Comments MAGNESIUM (BEAKER) (test code = 2.0 mg/dL 1.6-2.6 627) Branch Billing Payroll Clerk ID - EMERSONCALCIUM, [id number] 06:24:37 Test Item Value Reference Range Interpretation Comments CALCIUM IONIZED (BEAKER) (test 1.10 mmol/L 1.12-1.27 L code = 698) PH, BLOOD (BEAKER) (test code = 7.40 1810) POCT-GLUCOSE [id number] 05:49:36 Test Item Value Reference Range Interpretation Comments POC-GLUCOSE METER 126 mg/dL 70-110 H : TESTED A T [facility] 6720 (BEAKER) (test code = [facility], 1538) 43089: Branch Billing Payroll Clerk/Techni mayela ID = [id number] for Ri vera (contract), Via nna POCT-GLUCOSE [id number] 23:46:08 Test Item Value Reference Range Interpretation Comments POC-GLUCOSE METER 113 mg/dL 70-110 H : TESTED A T [facility] 6720 (BEAKER) (test code = [facility], 1538) 44634: Branch Billing Payroll Clerk/Techni mayela ID = [id number] for Ri vera (contract), Via nna POCT-GLUCOSE [id number] 17:29:50 Test Item Value Reference Range Interpretation Comments POC-GLUCOSE METER 111 mg/dL 70-110 H : TESTED A T [facility] 6720 (BEAKER) (test code = [facility], 1538) 34039: Branch Billing Payroll Clerk/Techni mayela ID = [id number] for Fl ores (pca2)[place] POCT-GLUCOSE [id number] 14:08:29 Test Item Value Reference Range Interpretation Comments POC-GLUCOSE METER 113 mg/dL 70-110 H : TESTED A T [facility] 6720 (BEAKER) (test code = [facility], 1538) 24982: Branch Billing Payroll Clerk/Techni mayela ID = [id number] for Fl ores (pca2)[place] BLOOD [id number] 11:00:59 Test Item Value Reference Range Interpretation Comments CULTURE (BEAKER) (test No growth in 5 days code = 1095) The specimen volume collected for this blood culture was below the optimum (10 mL per bottle or 20 mL total). Use of lower volumes may adversely affect recovery and/or detection times of some organisms.BLOOD [id number] 11:00:59 Test Item Value Reference Range Interpretation Comments CULTURE (BEAKER) (test No growth in 5 days code = 1095) (CELLAVISION MANUAL DIFF)2021-07-31 09:20:48 Test Item Value Reference Range Interpretation Comments NEUTROPHILS - REL 61 % (CELLAVISION)(BEAKER) (test code = 2816) LYMPHOCYTES - REL 19 % (CELLAVISION)(BEAKER) (test code = 2817) MONOCYTES - REL 8 % (CELLAVISION)(BEAKER) (test code = 2818) EOSINOPHILS - REL 5 % (CELLAVISION)(BEAKER) (test code = 2819) BASOPHILS - REL 1 % (CELLAVISION)(BEAKER) (test code = 2820) METAMYELOCYTES - REL 1 % 0-0 H (CELLAVISION)(BEAKER) (test code = 2821) MYELOCYTES - REL 2 % 0-0 H (CELLAVISION)(BEAKER) (test code = 2822) BANDS - REL (CELLAVISION)(BEAKER) 2 % 0-10 (test code = 2826) ATYPICAL LYMPHOCYTES - REL 1 % 0-0 H (CELLAVISION)(BEAKER) (test code = 2829) NEUTROPHILS - ABS 11.35 K/ul 1.78-5.38 H (CELLAVISION)(BEAKER) (test code = 2830) LYMPHOCYTES - ABS 3.53 K/ul 1.32-3.57 (CELLAVISION)(BEAKER) (test code = 2831) MONOCYTES - ABS 1.49 K/uL 0.30-0.82 H (CELLAVISION)(BEAKER) (test code = 2832) EOSINOPHILS - ABS 0.93 K/uL 0.04-0.54 H (CELLAVISION)(BEAKER) (test code = 2834) BASOPHILS - ABS 0.19 K/uL 0.01-0.08 H (CELLAVISION)(BEAKER) (test code = 2835) METAMYELOCYTES - ABS 0.19 K/uL 0.00-0.00 H (CELLAVISION)(BEAKER) (test code = 2836) MYELOCYTES-ABS 0.37 K/uL 0.00-0.00 H (CELLAVISION)(BEAKER) (test code = 2837) BANDS - ABS (CELLAVISION)(BEAKER) 0.37 K/uL 0.00-0.80 (test code = 2840) ATYPICAL LYMPHOCYTES - ABS 0.19 K/uL 0.00-0.00 H (CELLAVISION)(BEAKER) (test code = 2858) TOTAL COUNTED (BEAKER) (test code 100 = 1351) WBC MORPHOLOGY (BEAKER) (test code Normal = 487) PLT MORPHOLOGY (BEAKER) (test code Normal = 486) ANISOCYTOSIS (BEAKER) (test code = 1+ few 961) POIKILOCYTES (BEAKER) (test code = 1+ few 966) SPHEROCYTES (BEAKER) (test code = 1+ few 768) OVALOCYTES (BEAKER) (test code = 1+ few 477) ARTIFACT (CELLAVISION)(BEAKER) Present (test code = 3432) PLATELET CONCENTRATION Increased (CELLAVISION)(BEAKER) (test code = 3438) Branch Billing Payroll Clerk ID - Jessa Watt comments: Slide comments:CBC W/PLT COUNT & AUTO [id number] 09:20:47 Test Item Value Reference Range Interpretation Comments WHITE BLOOD CELL COUNT (BEAKER) 18.6 K/ L 3.5-10.5 H (test code = 775) RED BLOOD CELL COUNT (BEAKER) 4.04 M/ L 4.63-6.08 L (test code = 761) HEMOGLOBIN (BEAKER) (test code = 11.3 GM/DL 13.7-17.5 L 410) HEMATOCRIT (BEAKER) (test code = 34.7 % 40.1-51.0 L 411) MEAN CORPUSCULAR VOLUME (BEAKER) 85.9 fL 79.0-92.2 (test code = 753) MEAN CORPUSCULAR HEMOGLOBIN 28.0 pg 25.7-32.2 (BEAKER) (test code = 751) MEAN CORPUSCULAR HEMOGLOBIN CONC 32.6 GM/DL 32.3-36.5 (BEAKER) (test code = 752) RED CELL DISTRIBUTION WIDTH 12.2 % 11.6-14.4 (BEAKER) (test code = 412) PLATELET COUNT (BEAKER) (test 892 K/CU MM 150-450 H code = 756) MEAN PLATELET VOLUME (BEAKER) 8.4 fL 9.4-12.4 L (test code = 754) NUCLEATED RED BLOOD CELLS 0 /100 WBC 0-0 (BEAKER) (test code = 413) RAD, CHEST, 1 VIEW, NON [id number] 07:25:00Reason for exam:->While intubatedShould this be performed at the bedside?->Yes [facility] : 1995 Sex: MFINAL REPORT TECHNIQUE: One view of the chest. INDICATION: 25-year-old man status post intubation. COMPARISON: Chest radiograph 07/30/2021. FINDINGS: LINES/TUBES: Interval removal of the right internal jugular central venous catheter. Other lines/tubes are unchanged.LUNGS: Unchanged left lower lung zone airspace opacities. PLEURA: Unchanged small left pleural effusion. No pneumothorax. HEART AND MEDIASTINUM: Cardiomediastinal silhouette is unchanged. BONES AND SOFT TISSUES: No acute osseous abnormality. Persistent trace subcutaneous emphysema in the left chest wall. IMPRESSION:Lines/tubes as above. Otherwise, no significant change since 07/30/2021. Signed: Rebecca Montiel MDReport Verified Date/Time: 07/31/2021 07:25:27 Reading Location: [address] Transitional Reading Room CREATINE KINASE (CK)2021-07-31 06:27:49 Test Item Value Reference Range Interpretation Comments CREATINE KINASE TOTAL (BEAKER) (test 304 U/L 29-200 H code = 380) Branch Billing Payroll Clerk ID - DBOperator ID - JAY JAY [id number] 05:36:51 Test Item Value Reference Range Interpretation Comments PHOSPHORUS (BEAKER) (test code = 4.2 mg/dL 2.3-4.7 604) Branch Billing Payroll Clerk ID - DBHEPATIC FUNCTION [id number] 05:36:51 Test Item Value Reference Range Interpretation Comments TOTAL PROTEIN (BEAKER) (test code = 8.0 gm/dL 6.0-8.3 770) ALBUMIN (BEAKER) (test code = 1145) 3.2 g/dL 3.5-5.0 L BILIRUBIN TOTAL (BEAKER) (test code 0.5 mg/dL 0.2-1.2 = 377) BILIRUBIN DIRECT (BEAKER) (test 0.3 mg/dL 0.1-0.5 code = 706) ALKALINE PHOSPHATASE (BEAKER) (test 70 U/L 40-150 code = 346) AST (SGOT) (BEAKER) (test code = 25 U/L 5-34 353) ALT (SGPT) (BEAKER) (test code = 30 U/L 6-55 347) Branch Billing Payroll Clerk ID - DBBASIC METABOLIC [id number] 05:36:50 Test Item Value Reference Range Interpretation Comments SODIUM (BEAKER) 141 meq/L 136-145 (test code = 381) POTASSIUM (BEAKER) 3.5 meq/L 3.5-5.1 (test code = 379) CHLORIDE (BEAKER) 104 meq/L 98-107 (test code = 382) CO2 (BEAKER) (test 28 meq/L 22-29 code = 355) BLOOD UREA NITROGEN 14 mg/dL 7-21 (BEAKER) (test code = 354) CREATININE (BEAKER) 0.68 mg/dL 0.57-1.25 (test code = 358) GLUCOSE RANDOM 135 mg/dL 70-105 H (BEAKER) (test code = 652) CALCIUM (BEAKER) 9.1 mg/dL 8.4-10.2 (test code = 697) EGFR (BEAKER) (test 174 mL/min/1.73 ESTIM ATED GFR IS code = 1092) sq m NOT ACCURATE CREATININE CLEARANCE IN PREDICTING GLOMERULAR FILTRATION RATE . ESTIMATED GFR I S NOT APPLICABLE FOR DIALYSIS PATIEN TS. Branch Billing Payroll Clerk ID - [id number] 05:36:50 Test Item Value Reference Range Interpretation Comments MAGNESIUM (BEAKER) (test code = 2.7 mg/dL 1.6-2.6 H 627) Branch Billing Payroll Clerk ID - DBCALCIUM, [id number] 04:40:31 Test Item Value Reference Range Interpretation Comments CALCIUM IONIZED (BEAKER) (test 1.11 mmol/L 1.12-1.27 L code = 698) PH, BLOOD (BEAKER) (test code = 7.49 1810) (CELLAVISION MANUAL DIFF)2021-07-30 10:59:21 Test Item Value Reference Range Interpretation Comments NEUTROPHILS - REL 78 % (CELLAVISION)(BEAKER) (test code = 2816) LYMPHOCYTES - REL 6 % (CELLAVISION)(BEAKER) (test code = 2817) MONOCYTES - REL 11 % (CELLAVISION)(BEAKER) (test code = 2818) EOSINOPHILS - REL 2 % (CELLAVISION)(BEAKER) (test code = 2819) BASOPHILS - REL 1 % (CELLAVISION)(BEAKER) (test code = 2820) ATYPICAL LYMPHOCYTES - REL 2 % 0-0 H (CELLAVISION)(BEAKER) (test code = 2829) NEUTROPHILS - ABS 14.35 K/ul 1.78-5.38 H (CELLAVISION)(BEAKER) (test code = 2830) LYMPHOCYTES - ABS 1.10 K/ul 1.32-3.57 L (CELLAVISION)(BEAKER) (test code = 2831) MONOCYTES - ABS 2.02 K/uL 0.30-0.82 H (CELLAVISION)(BEAKER) (test code = 2832) EOSINOPHILS - ABS 0.37 K/uL 0.04-0.54 (CELLAVISION)(BEAKER) (test code = 2834) BASOPHILS - ABS 0.18 K/uL 0.01-0.08 H (CELLAVISION)(BEAKER) (test code = 2835) ATYPICAL LYMPHOCYTES - ABS 0.37 K/uL 0.00-0.00 H (CELLAVISION)(BEAKER) (test code = 2858) TOTAL COUNTED (BEAKER) (test code 100 = 1351) PLT MORPHOLOGY (BEAKER) (test code Normal = 486) VACUOLATED NEUTROPHILS (BEAKER) Present (test code = 483) POLYCHROMATOPHILLIC RBCS(BEAKER) 1+ few (test code = 478) ARTIFACT (CELLAVISION)(BEAKER) Present (test code = 3432) PLATELET CONCENTRATION Increased (CELLAVISION)(BEAKER) (test code = 3438) Branch Billing Payroll Clerk ID - Ruma Ray comments: Slide comments:CBC W/PLT COUNT & AUTO [id number] 10:59:19 Test Item Value Reference Range Interpretation Comments WHITE BLOOD CELL COUNT (BEAKER) 18.4 K/ L 3.5-10.5 H (test code = 775) RED BLOOD CELL COUNT (BEAKER) 3.73 M/ L 4.63-6.08 L (test code = 761) HEMOGLOBIN (BEAKER) (test code = 10.6 GM/DL 13.7-17.5 L 410) HEMATOCRIT (BEAKER) (test code = 33.5 % 40.1-51.0 L 411) MEAN CORPUSCULAR VOLUME (BEAKER) 89.8 fL 79.0-92.2 (test code = 753) MEAN CORPUSCULAR HEMOGLOBIN 28.4 pg 25.7-32.2 (BEAKER) (test code = 751) MEAN CORPUSCULAR HEMOGLOBIN CONC 31.6 GM/DL 32.3-36.5 L (BEAKER) (test code = 752) RED CELL DISTRIBUTION WIDTH 12.2 % 11.6-14.4 (BEAKER) (test code = 412) PLATELET COUNT (BEAKER) (test 828 K/CU MM 150-450 H code = 756) MEAN PLATELET VOLUME (BEAKER) 8.4 fL 9.4-12.4 L (test code = 754) NUCLEATED RED BLOOD CELLS 0 /100 WBC 0-0 (BEAKER) (test code = 413) CREATINE KINASE (CK)2021-07-30 06:05:51 Test Item Value Reference Range Interpretation Comments CREATINE KINASE TOTAL (BEAKER) (test 648 U/L 29-200 H code = 380) Branch Billing Payroll Clerk ID - ROSS [id number] 06:05:50 Test Item Value Reference Range Interpretation Comments MAGNESIUM (BEAKER) (test code = 2.2 mg/dL 1.6-2.6 627) Branch Billing Payroll Clerk ID - ROSS [id number] 06:05:50 Test Item Value Reference Range Interpretation Comments PHOSPHORUS (BEAKER) (test code = 3.9 mg/dL 2.3-4.7 604) Branch Billing Payroll Clerk ID - ROSS MBASIC METABOLIC [id number] 06:05:49 Test Item Value Reference Range Interpretation Comments SODIUM (BEAKER) 143 meq/L 136-145 (test code = 381) POTASSIUM (BEAKER) 4.0 meq/L 3.5-5.1 (test code = 379) CHLORIDE (BEAKER) 107 meq/L 98-107 (test code = 382) CO2 (BEAKER) (test 24 meq/L 22-29 code = 355) BLOOD UREA NITROGEN 12 mg/dL 7-21 (BEAKER) (test code = 354) CREATININE (BEAKER) 0.62 mg/dL 0.57-1.25 (test code = 358) GLUCOSE RANDOM 111 mg/dL 70-105 H (BEAKER) (test code = 652) CALCIUM (BEAKER) 8.8 mg/dL 8.4-10.2 (test code = 697) EGFR (BEAKER) (test 193 mL/min/1.73 ESTIM ATED GFR IS code = 1092) sq m NOT ACCURATE CREATININE CLEARANCE IN PREDICTING GLOMERULAR FILTRATION RATE . ESTIMATED GFR I S NOT APPLICABLE FOR DIALYSIS PATIEN TS. Branch Billing Payroll Clerk ID - ROSS MCALCIUM, [id number] 05:06:02 Test Item Value Reference Range Interpretation Comments CALCIUM IONIZED (BEAKER) (test 1.13 mmol/L 1.12-1.27 code = 698) PH, BLOOD (BEAKER) (test code = 7.44 1810) BLOOD GAS, [id number] 05:05:55 Test Item Value Reference Range Interpretation Comments PH ARTERIAL (BEAKER) (test code = 7.44 7.35-7.45 383) PCO2 ARTERIAL (BEAKER) (test code 42 mm Hg 35-45 = 384) PO2 ARTERIAL (BEAKER) (test code = 174 mm Hg 80-90 H 385) O2 SATURATION ARTERIAL (BEAKER) 99.2 % 96.0-97.0 H (test code = 386) HCO3 ARTERIAL (BEAKER) (test code 28 mmol/L 21-29 = 388) BASE EXCESS ARTERIAL (BEAKER) 3.2 mmol/L -2.0-3.0 H (test code = 387) PATIENT TEMPERATURE (BEAKER) (test 37.0 code = 1818) FIO2 (BEAKER) (test code = 1819) 28.0 RAD, CHEST, 1 VIEW, NON [id number] 02:46:00Reason for exam:->While intubatedShould this be performed at the bedside?->Yes [facility] 1995 Sex: MFINAL REPORT RAD, CHEST, 1 VIEW, NON DEPT INDICATION: While intubated COMPARISON: Prior day's exam FINDINGS: Portable frontal view of the chest. IMPRESSION: SupportLines: Interval extubation. Otherwise unchanged support apparatus. Lungs and pleura: Slight worsening consolidative airspace opacity in the left base with small left pleural effusion. No pneumothorax.Heart and mediastinum: Stable contours. Additional findings: Subcutaneous emphysema over the left lateral chest wall. Signed: Kristine Sotomayor Verified Date/Time: 07/30/2021 02:46:55 BLOOD GAS, [id number] 21:17:33 Test Item Value Reference Range Interpretation Comments PH ARTERIAL (BEAKER) (test code = 7.42 7.35-7.45 383) PCO2 ARTERIAL (BEAKER) (test code 40 mm Hg 35-45 = 384) PO2 ARTERIAL (BEAKER) (test code = 186 mm Hg 80-90 H 385) O2 SATURATION ARTERIAL (BEAKER) 99.3 % 96.0-97.0 H (test code = 386) HCO3 ARTERIAL (BEAKER) (test code 26 mmol/L -29 = 388) BASE EXCESS ARTERIAL (BEAKER) 0.9 mmol/L -2.0-3.0 (test code = 387) PATIENT TEMPERATURE (BEAKER) (test 36.5 code = 1818) FIO2 (BEAKER) (test code = 1819) 28.0 [id number] 17:04:37 Test Item Value Reference Range Interpretation Comments PHOSPHORUS (BEAKER) (test code = 4.1 mg/dL 2.3-4.7 604) Branch Billing Payroll Clerk ID - BSBASIC METABOLIC [id number] 17:04:36 Test Item Value Reference Range Interpretation Comments SODIUM (BEAKER) 145 meq/L 136-145 (test code = 381) POTASSIUM (BEAKER) 4.1 meq/L 3.5-5.1 (test code = 379) CHLORIDE (BEAKER) 111 meq/L 98-107 H (test code = 382) CO2 (BEAKER) (test 21 meq/L 22-29 L code = 355) BLOOD UREA NITROGEN 15 mg/dL 7-21 (BEAKER) (test code = 354) CREATININE (BEAKER) 0.60 mg/dL 0.57-1.25 (test code = 358) GLUCOSE RANDOM 111 mg/dL 70-105 H (BEAKER) (test code = 652) CALCIUM (BEAKER) 8.8 mg/dL 8.4-10.2 (test code = 697) EGFR (BEAKER) (test 201 mL/min/1.73 ESTIM ATED GFR IS code = 1092) sq m NOT ACCURATE CREATININE CLEARANCE IN PREDICTING GLOMERULAR FILTRATION RATE . ESTIMATED GFR I S NOT APPLICABLE FOR DIALYSIS PATIEN TS. Branch Billing Payroll Clerk ID - [id number] 17:04:36 Test Item Value Reference Range Interpretation Comments MAGNESIUM (BEAKER) (test code = 2.1 mg/dL 1.6-2.6 627) Branch Billing Payroll Clerk ID - BSCBC (HEMOGRAM ONLY)2021-07-29 16:59:25 Test Item Value Reference Range Interpretation Comments WHITE BLOOD CELL COUNT (BEAKER) 19.8 K/ L 3.5-10.5 H (test code = 775) RED BLOOD CELL COUNT (BEAKER) 3.75 M/ L 4.63-6.08 L (test code = 761) HEMOGLOBIN (BEAKER) (test code = 10.5 GM/DL 13.7-17.5 L 410) HEMATOCRIT (BEAKER) (test code = 33.3 % 40.1-51.0 L 411) MEAN CORPUSCULAR VOLUME (BEAKER) 88.8 fL 79.0-92.2 (test code = 753) MEAN CORPUSCULAR HEMOGLOBIN 28.0 pg 25.7-32.2 (BEAKER) (test code = 751) MEAN CORPUSCULAR HEMOGLOBIN CONC 31.5 GM/DL 32.3-36.5 L (BEAKER) (test code = 752) RED CELL DISTRIBUTION WIDTH 12.1 % 11.6-14.4 (BEAKER) (test code = 412) PLATELET COUNT (BEAKER) (test 778 K/CU MM 150-450 H code = 756) MEAN PLATELET VOLUME (BEAKER) 8.5 fL 9.4-12.4 L (test code = 754) NUCLEATED RED BLOOD CELLS 0 /100 WBC 0-0 (BEAKER) (test code = 413) BLOOD GAS, [id number] 16:40:10 Test Item Value Reference Range Interpretation Comments PH ARTERIAL (BEAKER) (test code = 7.45 7.35-7.45 383) PCO2 ARTERIAL (BEAKER) (test code 37 mm Hg 35-45 = 384) PO2 ARTERIAL (BEAKER) (test code = 177 mm Hg 80-90 H 385) O2 SATURATION ARTERIAL (BEAKER) 99.3 % 96.0-97.0 H (test code = 386) HCO3 ARTERIAL (BEAKER) (test code 26 mmol/L 21-29 = 388) BASE EXCESS ARTERIAL (BEAKER) 1.6 mmol/L -2.0-3.0 (test code = 387) PATIENT TEMPERATURE (BEAKER) (test 36.5 code = 1818) FIO2 (BEAKER) (test code = 1819) 50.0 CALCIUM, [id number] 16:39:48 Test Item Value Reference Range Interpretation Comments CALCIUM IONIZED (BEAKER) (test 1.14 mmol/L 1.12-1.27 code = 698) PH, BLOOD (BEAKER) (test code = 7.45 1810) RAD, CHEST, 1 VIEW, NON [id number] 16:17:00Reason for exam:- >intubationShould this be performed at the bedside?->Yes [facility] : 1995 Sex: MFINAL REPORT TECHNIQUE: One view of the chest. INDICATION: 25-year-old man status post intubation. COMPARISON: Chest radiograph from 14 hours prior. FINDINGS: LINES/TUBES: Endotracheal tube terminates approximately 5 cm above the tatiana. Right internal jugular central venous catheter terminates over the expected region of the mid superior vena cava. Left chest tube in place. Incompletely visualized nasogastric/orogastric tube courses over the expected region of thestomach. LUNGS: Lungs are well inflated. Bilateral lower lung zone airspace opacities. PLEURA: Suspected trace left pneumothorax. No significant pleural effusion. HEART AND MEDIASTINUM: Cardiomediastinal silhouette is unchanged. BONES AND SOFT TISSUES: Unremarkable. IMPRESSION:Lines/tubes as above. Suspected trace left pneumothorax. Bilateral lower lung zone airspace opacities. Differential considerations include pneumonia and atelectasis. Signed: Rebecca Montiel MDReport Verified Date/Time: 07/29/2021 16:17:41 Reading Location: [address] Transitional Reading Room HGB/HCT (H&H) - STAT [id number] 14:29:46 Test Item Value Reference Range Interpretation Comments HEMOGLOBIN (BEAKER) (test code = 11.5 GM/DL 13.0-16.8 L 410) HEMATOCRIT (BEAKER) (test code = 34.0 % 40.0-50.0 L 411) GLUCOSE-STAT [id number] 14:29:40 Test Item Value Reference Range Interpretation Comments GLUCOSE RANDOM (BEAKER) (test code 117 mg/dL 70-110 H = 652) BLOOD GAS, [id number] 14:29:28 Test Item Value Reference Range Interpretation Comments PH ARTERIAL (BEAKER) (test code = 7.42 7.35-7.45 383) PCO2 ARTERIAL (BEAKER) (test code 38 mm Hg 35-45 = 384) PO2 ARTERIAL (BEAKER) (test code 309 mm Hg 80-90 H = 385) O2 SATURATION ARTERIAL (BEAKER) 99.7 % 96.0-97.0 H (test code = 386) HCO3 ARTERIAL (BEAKER) (test code 24 mmol/L 21-29 = 388) BASE EXCESS ARTERIAL (BEAKER) -0.1 mmol/L -2.0-3.0 (test code = 387) PATIENT TEMPERATURE (BEAKER) 36.6 (test code = 1818) FIO2 (BEAKER) (test code = 1819) 91.0 STAT-LAB IONIZED [id number] 14:29:17 Test Item Value Reference Range Interpretation Comments FILTER IONIZED CALCIUM (BEAKER) 1.12 nnol/L (test code = 1854) Reference Range: No NormalsPOTASSIUM-STAT [id number] 14:28:34 Test Item Value Reference Range Interpretation Comments POTASSIUM (BEAKER) (test code = 4.1 meq/L 3.6-5.5 379) SODIUM NA-STAT [id number] 14:28:33 Test Item Value Reference Range Interpretation Comments SODIUM (BEAKER) (test code = 381) 144 meq/L 136-145 HGB/HCT (H&H) - STAT [id number] 13:58:25 Test Item Value Reference Range Interpretation Comments HEMOGLOBIN (BEAKER) (test code = 11.4 GM/DL 13.0-16.8 L 410) HEMATOCRIT (BEAKER) (test code = 34.0 % 40.0-50.0 L 411) BLOOD GAS, [id number] 13:58:19 Test Item Value Reference Range Interpretation Comments PH ARTERIAL (BEAKER) (test code = 7.47 7.35-7.45 H 383) PCO2 ARTERIAL (BEAKER) (test code 36 mm Hg 35-45 = 384) PO2 ARTERIAL (BEAKER) (test code = 71 mm Hg 80-90 L 385) O2 SATURATION ARTERIAL (BEAKER) 95.5 % 96.0-97.0 L (test code = 386) HCO3 ARTERIAL (BEAKER) (test code 25 mmol/L 21-29 = 388) BASE EXCESS ARTERIAL (BEAKER) 1.4 mmol/L -2.0-3.0 (test code = 387) PATIENT TEMPERATURE (BEAKER) (test 36.4 code = 1818) FIO2 (BEAKER) (test code = 1819) 100.0 CALCIUM, [id number] 13:57:46 Test Item Value Reference Range Interpretation Comments CALCIUM IONIZED (BEAKER) (test 1.13 mmol/L 1.12-1.27 code = 698) PH, BLOOD (BEAKER) (test code = 7.46 1810) POTASSIUM-STAT [id number] 13:57:29 Test Item Value Reference Range Interpretation Comments POTASSIUM (BEAKER) (test code = 4.2 meq/L 3.6-5.5 379) GLUCOSE-STAT [id number] 13:57:28 Test Item Value Reference Range Interpretation Comments GLUCOSE RANDOM (BEAKER) (test code 110 mg/dL 70-110 = 652) SODIUM NA-STAT [id number] 13:57:28 Test Item Value Reference Range Interpretation Comments SODIUM (BEAKER) (test code = 381) 146 meq/L 136-145 H POCT-GLUCOSE [id number] 12:42:41 Test Item Value Reference Range Interpretation Comments POC-GLUCOSE METER 90 mg/dL 70-110 : Notified RN/MD: TESTED (BEAKER) (test code = AT [facility] [address] [facility] [address]) [facility], [facility] 30: Branch Billing Payroll Clerk/Techni mayela ID = [id number] for [facility] er (contract), Ernie allenn RAD, NECK, SOFT [id number] 08:46:00Reason for exam:->[facility] pain [facility] 1995 Sex: MFINAL REPORT RAD, NECK, SOFT TISSUE INDICATION: neck pain COMPARISON: None TECHNIQUE: AP and lateral radiographs of the neck soft tissues FINDINGS/IMPRESSION: Mild prevertebral soft tissue swelling spanning C4-C6, difficult to definitively evaluate with ET tube in place. Signed: Linsey Tianeport Verified Date/Time: 07/29/2021 08:46:00 Reading Location: [facility] Radiology Reading Room BASIC METABOLIC [id number] 06:30:36 Test Item Value Reference Range Interpretation Comments SODIUM (BEAKER) 144 meq/L 136-145 (test code = 381) POTASSIUM (BEAKER) 3.9 meq/L 3.5-5.1 (test code = 379) CHLORIDE (BEAKER) 108 meq/L 98-107 H (test code = 382) CO2 (BEAKER) (test 23 meq/L 22-29 code = 355) BLOOD UREA NITROGEN 17 mg/dL 7-21 (BEAKER) (test code = 354) CREATININE (BEAKER) 0.57 mg/dL 0.57-1.25 (test code = 358) GLUCOSE RANDOM 120 mg/dL 70-105 H (BEAKER) (test code = 652) CALCIUM (BEAKER) 9.0 mg/dL 8.4-10.2 (test code = 697) EGFR (BEAKER) (test 213 mL/min/1.73 ESTIM ATED GFR IS code = 1092) sq m NOT ACCURATE CREATININE CLEARANCE IN PREDICTING GLOMERULAR FILTRATION RATE . ESTIMATED GFR I S NOT APPLICABLE FOR DIALYSIS PATIEN TS. Branch Billing Payroll Clerk ID - MARK Beyerrabrayden GOYAL [id number] 06:30:35 Test Item Value Reference Range Interpretation Comments PHOSPHORUS (BEAKER) (test code = 4.2 mg/dL 2.3-4.7 604) Branch Billing Payroll Clerk ID - JAY JAY WCREATINE KINASE (CK)2021-07-29 05:49:40 Test Item Value Reference Range Interpretation Comments CREATINE KINASE TOTAL (BEAKER) (test 661 U/L 29-200 H code = 380) Branch Billing Payroll Clerk ID - MARK [id number] 05:49:39 Test Item Value Reference Range Interpretation Comments MAGNESIUM (BEAKER) (test code = 2.5 mg/dL 1.6-2.6 627) Branch Billing Payroll Clerk ID - MARK LHEPATIC FUNCTION [id number] 05:49:39 Test Item Value Reference Range Interpretation Comments TOTAL PROTEIN (BEAKER) (test code = 7.9 gm/dL 6.0-8.3 770) ALBUMIN (BEAKER) (test code = 1145) 3.1 g/dL 3.5-5.0 L BILIRUBIN TOTAL (BEAKER) (test code 0.5 mg/dL 0.2-1.2 = 377) BILIRUBIN DIRECT (BEAKER) (test 0.3 mg/dL 0.1-0.5 code = 706) ALKALINE PHOSPHATASE (BEAKER) (test 81 U/L 40-150 code = 346) AST (SGOT) (BEAKER) (test code = 37 U/L 5-34 H 353) ALT (SGPT) (BEAKER) (test code = 37 U/L 6-55 347) Branch Billing Payroll Clerk ID - MARK Lassiter ID Franck FLORES LCBC W/PLT COUNT & AUTO [id number] 05:06:12 Test Item Value Reference Range Interpretation Comments WHITE BLOOD CELL COUNT (BEAKER) 17.8 K/ L 3.5-10.5 H (test code = 775) RED BLOOD CELL COUNT (BEAKER) 3.81 M/ L 4.63-6.08 L (test code = 761) HEMOGLOBIN (BEAKER) (test code = 10.7 GM/DL 13.7-17.5 L 410) HEMATOCRIT (BEAKER) (test code = 32.6 % 40.1-51.0 L 411) MEAN CORPUSCULAR VOLUME (BEAKER) 85.6 fL 79.0-92.2 (test code = 753) MEAN CORPUSCULAR HEMOGLOBIN 28.1 pg 25.7-32.2 (BEAKER) (test code = 751) MEAN CORPUSCULAR HEMOGLOBIN CONC 32.8 GM/DL 32.3-36.5 (BEAKER) (test code = 752) RED CELL DISTRIBUTION WIDTH 12.0 % 11.6-14.4 (BEAKER) (test code = 412) PLATELET COUNT (BEAKER) (test 694 K/CU MM 150-450 H code = 756) MEAN PLATELET VOLUME (BEAKER) 8.9 fL 9.4-12.4 L (test code = 754) NUCLEATED RED BLOOD CELLS 0 /100 WBC 0-0 (BEAKER) (test code = 413) NEUTROPHILS RELATIVE PERCENT 76 % (BEAKER) (test code = 429) LYMPHOCYTES RELATIVE PERCENT 10 % (BEAKER) (test code = 430) MONOCYTES RELATIVE PERCENT 7 % (BEAKER) (test code = 431) EOSINOPHILS RELATIVE PERCENT 2 % (BEAKER) (test code = 432) BASOPHILS RELATIVE PERCENT 1 % (BEAKER) (test code = 437) NEUTROPHILS ABSOLUTE COUNT 13.52 K/ L 1.78-5.38 H (BEAKER) (test code = 670) LYMPHOCYTES ABSOLUTE COUNT 1.84 K/ L 1.32-3.57 (BEAKER) (test code = 414) MONOCYTES ABSOLUTE COUNT (BEAKER) 1.30 K/ L 0.30-0.82 H (test code = 415) EOSINOPHILS ABSOLUTE COUNT 0.42 K/ L 0.04-0.54 (BEAKER) (test code = 416) BASOPHILS ABSOLUTE COUNT (BEAKER) 0.10 K/ L 0.01-0.08 H (test code = 417) IMMATURE GRANULOCYTES-RELATIVE 3 % 0-1 H PERCENT (BEAKER) (test code = 2801) [id number] 04:58:46 Test Item Value Reference Range Interpretation Comments PROTIME (BEAKER) (test 15.6 seconds 11.9-14.2 H code = 759) INR (BEAKER) (test 1.26 See_Comment [Automat ed code = 370) message] The sy stem which generated this result transmitted reference range : <=5.90. The reference range was not used to interpret this result as normal/abnormal . PARTIAL THROMBOPLASTIN 23.4 seconds 22.5-36.0 TIME (BEAKER) (test code = 760) RECOMMENDED COUMADIN/WARFARIN INR THERAPY RANGESSTANDARD DOSE: 2.0 - 3.0 Includes: PROPHYLAXIS forvenous thrombosis, systemic embolization; TREATMENT for venous thrombosis and/or pulmonary embolus.HIGH RISK: Target INR is 2.5-3.5 for patients with mechanical heart valves.[id number] 04:58:29 Test Item Value Reference Range Interpretation Comments FIBRINOGEN LEVEL (BEAKER) (test 568 mg/dl 225-434 H code = 658) BLOOD GAS, [id number] 04:51:14 Test Item Value Reference Range Interpretation Comments PH ARTERIAL (BEAKER) (test code = 7.45 7.35-7.45 383) PCO2 ARTERIAL (BEAKER) (test code 44 mm Hg 35-45 = 384) PO2 ARTERIAL (BEAKER) (test code = 189 mm Hg 80-90 H 385) O2 SATURATION ARTERIAL (BEAKER) 99.3 % 96.0-97.0 H (test code = 386) HCO3 ARTERIAL (BEAKER) (test code 30 mmol/L 21-29 H = 388) BASE EXCESS ARTERIAL (BEAKER) 5.1 mmol/L -2.0-3.0 H (test code = 387) PATIENT TEMPERATURE (BEAKER) (test 37.5 code = 1818) FIO2 (BEAKER) (test code = 1819) 40.0 CALCIUM, [id number] 04:50:47 Test Item Value Reference Range Interpretation Comments CALCIUM IONIZED (BEAKER) (test 1.14 mmol/L 1.12-1.27 code = 698) PH, BLOOD (BEAKER) (test code = 7.46 1810) POCT-GLUCOSE [id number] 04:49:34 Test Item Value Reference Range Interpretation Comments POC-GLUCOSE METER 107 mg/dL 70-110 : TESTED A T [facility] 6720 (BEAKER) (test code = [place], 1538) [id number]: Branch Billing Payroll Clerk/Techni mayela ID = [id number] for MERCEDES JAMES RAD, CHEST, 1 VIEW, NON [id number] 04:45:00Reason for exam:->While intubatedShould this be performed at the bedside?->Yes [facility] : 1995 Sex: MFINAL REPORT CLINICAL INDICATION: Support lines. Comparison: 07/28 The cardiomediastinal contours are stable. Central pulmonary vascular engorgement and bilateral parenchymal opacities are similar within variation of acquisition technique. There is no pneumothorax. Support lines are stable. Signed: Ortiz Garciaeport Verified Date/Time: 07/29/2021 04:45:16 POCT- GLUCOSE [id number] 01:17:19 Test Item Value Reference Range Interpretation Comments POC-GLUCOSE METER 111 mg/dL 70-110 H : TESTED A T [facility] 6720 (BEAKER) (test code = [facility], 1538) [id number]: Branch Billing Payroll Clerk/Techni mayela ID = [id number] for MERCEDES JAMES POCT-GLUCOSE [id number] 18:18:05 Test Item Value Reference Range Interpretation Comments POC-GLUCOSE METER 111 mg/dL 70-110 H : TESTED A T [facility] 6720 (BEAKER) (test code = [facility], 1538) [id number]: Branch Billing Payroll Clerk/Techni mayela ID = [id number] for Jesika betancur (contract)Queta [id number] 16:05:42 Test Item Value Reference Range Interpretation Comments PHOSPHORUS (BEAKER) (test code = 4.2 mg/dL 2.3-4.7 604) Branch Billing Payroll Clerk ID - [id number] 16:05:41 Test Item Value Reference Range Interpretation Comments MAGNESIUM (BEAKER) (test code = 2.3 mg/dL 1.6-2.6 627) Branch Billing Payroll Clerk ID - BSBASIC METABOLIC [id number] 16:05:40 Test Item Value Reference Range Interpretation Comments SODIUM (BEAKER) 144 meq/L 136-145 (test code = 381) POTASSIUM (BEAKER) 3.8 meq/L 3.5-5.1 (test code = 379) CHLORIDE (BEAKER) 107 meq/L 98-107 (test code = 382) CO2 (BEAKER) (test 25 meq/L 22-29 code = 355) BLOOD UREA NITROGEN 15 mg/dL 7-21 (BEAKER) (test code = 354) CREATININE (BEAKER) 0.56 mg/dL 0.57-1.25 L (test code = 358) GLUCOSE RANDOM 118 mg/dL 70-105 H (BEAKER) (test code = 652) CALCIUM (BEAKER) 9.0 mg/dL 8.4-10.2 (test code = 697) EGFR (BEAKER) (test 217 mL/min/1.73 ESTIM ATED GFR IS code = 1092) sq m NOT ACCURATE CREATININE CLEARANCE IN PREDICTING GLOMERULAR FILTRATION RATE . ESTIMATED GFR I S NOT APPLICABLE FOR DIALYSIS PATIEN TS. Branch Billing Payroll Clerk ID - BSCALCIUM, [id number] 15:41:23 Test Item Value Reference Range Interpretation Comments CALCIUM IONIZED (BEAKER) (test 1.11 mmol/L 1.12-1.27 L code = 698) PH, BLOOD (BEAKER) (test code = 7.47 1810) POCT-GLUCOSE [id number] 12:03:13 Test Item Value Reference Range Interpretation Comments POC-GLUCOSE METER 123 mg/dL 70-110 H : [facility] (BEAKER) (test code = [place], 1538) [id number]: Branch Billing Payroll Clerk/Techni mayela ID = [id number] for Jesika gypsy (contract), Queta perry MISCELLANEOUS LAB [id number] 09:30:38 Test Item Value Reference Range Interpretation Comments SCAN RESULT (test code = See scanned result [id number]) See scanned reportBRONCHIAL CULTURE + GRAM [id number] 08:35:07 Test Item Value Reference Range Interpretation Comments CULTURE (BEAKER) (test code No growth = 1095) GRAM STAIN RESULT (BEAKER) 2+ WBCs (test code = 1123) GRAM STAIN RESULT (BEAKER) No organisms seen (test code = 86246) CREATINE KINASE (CK)2021-07-28 05:58:05 Test Item Value Reference Range Interpretation Comments CREATINE KINASE TOTAL (BEAKER) (test 913 U/L 29-200 H code = 380) Branch Billing Payroll Clerk ID - ROSS [id number] 05:58:04 Test Item Value Reference Range Interpretation Comments PHOSPHORUS (BEAKER) (test code = 3.9 mg/dL 2.3-4.7 604) Branch Billing Payroll Clerk ID - ROSS MBASIC METABOLIC [id number] 05:58:03 Test Item Value Reference Range Interpretation Comments SODIUM (BEAKER) 145 meq/L 136-145 (test code = 381) POTASSIUM (BEAKER) 4.0 meq/L 3.5-5.1 (test code = 379) CHLORIDE (BEAKER) 107 meq/L 98-107 (test code = 382) CO2 (BEAKER) (test 25 meq/L 22-29 code = 355) BLOOD UREA NITROGEN 14 mg/dL 7-21 (BEAKER) (test code = 354) CREATININE (BEAKER) 0.60 mg/dL 0.57-1.25 (test code = 358) GLUCOSE RANDOM 117 mg/dL 70-105 H (BEAKER) (test code = 652) CALCIUM (BEAKER) 9.4 mg/dL 8.4-10.2 (test code = 697) EGFR (BEAKER) (test 201 mL/min/1.73 ESTIM ATED GFR IS code = 1092) sq m NOT ACCURATE CREATININE CLEARANCE IN PREDICTING GLOMERULAR FILTRATION RATE . ESTIMATED GFR I S NOT APPLICABLE FOR DIALYSIS PATIEN TS. Branch Billing Payroll Clerk ID - ROSS [id number] 05:58:02 Test Item Value Reference Range Interpretation Comments MAGNESIUM (BEAKER) (test code = 2.4 mg/dL 1.6-2.6 627) Branch Billing Payroll Clerk ID - ROSS MCBC W/PLT COUNT & AUTO [id number] 05:53:50 Test Item Value Reference Range Interpretation Comments WHITE BLOOD CELL COUNT (BEAKER) 18.3 K/ L 3.5-10.5 H (test code = 775) RED BLOOD CELL COUNT (BEAKER) 4.06 M/ L 4.63-6.08 L (test code = 761) HEMOGLOBIN (BEAKER) (test code = 11.4 GM/DL 13.7-17.5 L 410) HEMATOCRIT (BEAKER) (test code = 34.7 % 40.1-51.0 L 411) MEAN CORPUSCULAR VOLUME (BEAKER) 85.5 fL 79.0-92.2 (test code = 753) MEAN CORPUSCULAR HEMOGLOBIN 28.1 pg 25.7-32.2 (BEAKER) (test code = 751) MEAN CORPUSCULAR HEMOGLOBIN CONC 32.9 GM/DL 32.3-36.5 (BEAKER) (test code = 752) RED CELL DISTRIBUTION WIDTH 11.9 % 11.6-14.4 (BEAKER) (test code = 412) PLATELET COUNT (BEAKER) (test 766 K/CU MM 150-450 H code = 756) MEAN PLATELET VOLUME (BEAKER) 8.6 fL 9.4-12.4 L (test code = 754) NUCLEATED RED BLOOD CELLS 0 /100 WBC 0-0 (BEAKER) (test code = 413) NEUTROPHILS RELATIVE PERCENT 78 % (BEAKER) (test code = 429) LYMPHOCYTES RELATIVE PERCENT 9 % (BEAKER) (test code = 430) MONOCYTES RELATIVE PERCENT 7 % (BEAKER) (test code = 431) EOSINOPHILS RELATIVE PERCENT 1 % (BEAKER) (test code = 432) BASOPHILS RELATIVE PERCENT 1 % (BEAKER) (test code = 437) NEUTROPHILS ABSOLUTE COUNT 14.26 K/ L 1.78-5.38 H (BEAKER) (test code = 670) LYMPHOCYTES ABSOLUTE COUNT 1.62 K/ L 1.32-3.57 (BEAKER) (test code = 414) MONOCYTES ABSOLUTE COUNT (BEAKER) 1.31 K/ L 0.30-0.82 H (test code = 415) EOSINOPHILS ABSOLUTE COUNT 0.23 K/ L 0.04-0.54 (BEAKER) (test code = 416) BASOPHILS ABSOLUTE COUNT (BEAKER) 0.12 K/ L 0.01-0.08 H (test code = 417) IMMATURE GRANULOCYTES-RELATIVE 4 % 0-1 H PERCENT (BEAKER) (test code = 2801) [id number] 05:50:02 Test Item Value Reference Range Interpretation Comments PARTIAL THROMBOPLASTIN TIME 38.7 seconds 22.5-36.0 H (BEAKER) (test code = 760) PROTHROMBIN [id number] 05:49:20 Test Item Value Reference Range Interpretation Comments PROTIME (BEAKER) 15.0 seconds 11.9-14.2 H (test code = 759) INR (BEAKER) (test 1.20 See_Comment [Automat ed message] code = 370) The system [employer] generated this result transmitted ref erence range: <=5.90. The reference range was not used to int erpret this result as normal/abnormal . RECOMMENDED COUMADIN/WARFARIN INR THERAPY RANGESSTANDARD DOSE: 2.0 - 3.0 Includes: PROPHYLAXIS forvenous thrombosis, systemic embolization; TREATMENT for venous thrombosis and/or pulmonary embolus.HIGH RISK: Target INR is 2.5-3.5 for patients with mechanical heart valves.BLOOD GAS, [id number] 05:37:53 Test Item Value Reference Range Interpretation Comments PH VENOUS (BEAKER) (test code = 7.44 7.32-7.42 H 701) PCO2 VENOUS (BEAKER) (test code = 43 mm Hg 41-51 755) PO2 VENOUS (BEAKER) (test code = 65 mm Hg 25-40 H 702) O2 SATURATION VENOUS (BEAKER) 93.3 % 40.0-70.0 H (test code = 703) HCO3 VENOUS (BEAKER) (test code = 28 mmol/L 21-29 705) BASE EXCESS VENOUS (BEAKER) (test 3.5 mmol/L -2.0-3.0 H code = 704) PATIENT TEMPERATURE (BEAKER) (test 37.0 code = 1818) FIO2 (BEAKER) (test code = 1819) 50.0 CALCIUM, [id number] 05:37:17 Test Item Value Reference Range Interpretation Comments CALCIUM IONIZED (BEAKER) (test 1.14 mmol/L 1.12-1.27 code = 698) PH, BLOOD (BEAKER) (test code = 7.44 1810) RAD, CHEST, 1 VIEW, NON [id number] 03:48:00Reason for exam:->While intubatedShould this be performed at the bedside?->Yes [facility] 1995 Sex: MFINAL REPORT CLINICAL INDICATION: Support lines. Comparison: 07/27 The cardiomediastinal contours are stable. The lung volumes are low but stable after extubation. Bilateral parenchymal opacities are similar to previous. There is no pneumothorax. An enteric tuberemains in place. Signed: Ortiz Garcia MDReport Verified Date/Time: 07/28/2021 03:48:12 Elect ronically signed by: ORTIZ GARCIA M.D. on 07/28/2021 03:48 AMBLOOD CULTURE 2021-07-27 23:00:53 Test Item Value Reference Range Interpretation Comments CULTURE (BEAKER) (test No growth in 5 days code = 1095) BLOOD [id number] 23:00:52 Test Item Value Reference Range Interpretation Comments CULTURE (BEAKER) (test No growth in 5 days code = 1095) The specimen volume collected for this blood culture was below the optimum (10 mL per bottle or 20 mL total). Use of lower volumes may adversely affect recovery and/or detection times of some organisms.BASIC METABOLIC PANEL 2021-07-27 21:02:41 Test Item Value Reference Range Interpretation Comments SODIUM (BEAKER) 142 meq/L 136-145 (test code = 381) POTASSIUM (BEAKER) 3.8 meq/L 3.5-5.1 (test code = 379) CHLORIDE (BEAKER) 107 meq/L 98-107 (test code = 382) CO2 (BEAKER) (test 25 meq/L 22-29 code = 355) BLOOD UREA NITROGEN 13 mg/dL 7-21 (BEAKER) (test code = 354) CREATININE (BEAKER) 0.56 mg/dL 0.57-1.25 L (test code = 358) GLUCOSE RANDOM 118 mg/dL 70-105 H (BEAKER) (test code = 652) CALCIUM (BEAKER) 8.5 mg/dL 8.4-10.2 (test code = 697) EGFR (BEAKER) (test 217 mL/min/1.73 ESTIM ATED GFR IS code = 1092) sq m NOT ACCURATE CREATININE CLEARANCE IN PREDICTING GLOMERULAR FILTRATION RATE . ESTIMATED GFR I S NOT APPLICABLE FOR DIALYSIS PATIEN TS. Branch Billing Payroll Clerk ID - FSELACTATE DEHYDROGENASE (LDH)2021-07-27 21:01:49 Test Item Value Reference Range Interpretation Comments LACTATE DEHYDROGENASE (BEAKER) (test 271 U/L 125-220 H code = 635) Branch Billing Payroll Clerk ID - [id number] 21:01:48 Test Item Value Reference Range Interpretation Comments PHOSPHORUS (BEAKER) (test code = 3.3 mg/dL 2.3-4.7 604) Branch Billing Payroll Clerk ID - [id number] 21:01:47 Test Item Value Reference Range Interpretation Comments MAGNESIUM (BEAKER) (test code = 2.1 mg/dL 1.6-2.6 627) Branch Billing Payroll Clerk ID - FSECALCIUM, [id number] 20:33:09 Test Item Value Reference Range Interpretation Comments CALCIUM IONIZED (BEAKER) (test 1.10 mmol/L 1.12-1.27 L code = 698) PH, BLOOD (BEAKER) (test code = 7.48 1810) BLOOD GAS, [id number] 20:32:58 Test Item Value Reference Range Interpretation Comments PH VENOUS (BEAKER) (test code = 7.48 7.32-7.42 H 701) PCO2 VENOUS (BEAKER) (test code = 39 mm Hg 41-51 L 755) PO2 VENOUS (BEAKER) (test code = 62 mm Hg 25-40 H 702) O2 SATURATION VENOUS (BEAKER) 93.3 % 40.0-70.0 H (test code = 703) HCO3 VENOUS (BEAKER) (test code = 29 mmol/L 21-29 705) BASE EXCESS VENOUS (BEAKER) (test 4.9 mmol/L -2.0-3.0 H code = 704) PATIENT TEMPERATURE (BEAKER) (test 37.0 code = 1818) FIO2 (BEAKER) (test code = 1819) 21.0 BASIC METABOLIC [id number] 18:35:33 Test Item Value Reference Range Interpretation Comments SODIUM (BEAKER) 145 meq/L 136-145 (test code = 381) POTASSIUM (BEAKER) 3.3 meq/L 3.5-5.1 L (test code = 379) CHLORIDE (BEAKER) 116 meq/L 98-107 H (test code = 382) CO2 (BEAKER) (test 19 meq/L 22-29 L code = 355) BLOOD UREA NITROGEN 11 mg/dL 7-21 (BEAKER) (test code = 354) CREATININE (BEAKER) 0.42 mg/dL 0.57-1.25 L (test code = 358) GLUCOSE RANDOM 90 mg/dL 70-105 (BEAKER) (test code = 652) CALCIUM (BEAKER) 6.7 mg/dL 8.4-10.2 L (test code = 697) EGFR (BEAKER) (test 303 mL/min/1.73 ESTIM ATED GFR IS code = 1092) sq m NOT ACCURATE CREATININE CLEARANCE IN PREDICTING GLOMERULAR FILTRATION RATE . ESTIMATED GFR I S NOT APPLICABLE FOR DIALYSIS PATIEN TS. Branch Billing Payroll Clerk ID - ROSS [id number] 18:30:00 Test Item Value Reference Range Interpretation Comments PHOSPHORUS (BEAKER) (test code = 2.8 mg/dL 2.3-4.7 604) Branch Billing Payroll Clerk ID - ROSS [id number] 18:29:59 Test Item Value Reference Range Interpretation Comments MAGNESIUM (BEAKER) (test code = 1.7 mg/dL 1.6-2.6 627) Branch Billing Payroll Clerk ID - ROSS MPOCT-GLUCOSE [id number] 17:54:22 Test Item Value Reference Range Interpretation Comments POC-GLUCOSE METER 119 mg/dL 70-110 H : [facility] ([facility]ER[facility] (test code = [place], 1538) [id number]: Branch Billing Payroll Clerk/Techni mayela ID = [id number] for Jesika betancur (contract), Queta xis LACTATE DEHYDROGENASE (LDH)2021-07-27 17:36:08 Test Item Value Reference Range Interpretation Comments LACTATE DEHYDROGENASE (BEAKER) (test 335 U/L 125-220 H code = 635) Branch Billing Payroll Clerk ID - [id number] 17:36:07 Test Item Value Reference Range Interpretation Comments GLUCOSE RANDOM (BEAKER) (test code 114 mg/dL 70-105 H = 652) Branch Billing Payroll Clerk ID - SARA, [id number] 17:29:55 Test Item Value Reference Range Interpretation Comments CALCIUM IONIZED (BEAKER) (test 0.99 mmol/L 1.12-1.27 L code = 698) PH, BLOOD (BEAKER) (test code = 7.47 1810) TISSUE [id number] 13:26:26Surgical Pathology Report Case: [id number] Authorizing Provider: Rashawn Hernandez MD Collected: 07/22/2021 03:41 PM Ordering Location: [address] Received: 07/25/2021 09:17 AM Service Pathologist: Jackie Hays MD Specimen: Lung, Left Lower Lobe, LLL endobronchial bx A. LUNG, LEFT LOWER LOBE, CRYOPROBE GUIDED ENDOBRONCHIAL BIOPSY: - ABUNDANT FIBRINOPURULENT MATERIAL WITH FOREIGN BODY MATERIAL (SEE COMMENT) - NO VIABLE LUNG PARENCHYMA SEEN - GMS STAIN NEGATIVE FOR FUNGAL ELEMENTS Signing Pathologist Direct Phone Line: [phone] signed by Jackie Hays MD on 07/27/2021 at 1:26 PMThe foreign material is in clumps, crystalline, in irregular shapes and sizes with sharp contours. 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 Clinical and radiologic correlation is recommended to determine if findings are related to occupational exposure.[id number] abscessLung, left l ower lobeA. Received in formalin labeled with the patient's name, medical record number and "lung, left lower lobe" is a 4 x 2.5 x 0.8 cm aggregate of multiple hebert-kimbrough necrotic tissue fragments. The specimen is serially sectioned and no gross lesions are identified. Logistics Intern sections are submitted in A1- A3.IWONA Caruso PA (ASCP)cmPerformed.The interpretation of this case included the use of immunohistochemistry or special stains.Control Slides Examined: In-house known positive controls were evaluated along with the test tissue. These control slides run alongside of the patients sample show appropriate staining. Internal positive and negative controls when available are evaluated Immunohistochemistry technical testing was performed at [facility], Pathology Laboratory where it was developed and its performance characteristics were determined. It has not beencleared or approved by the U.S. Food and Drug Administration. The FDA has determined that such clearance or approval is not necessary. The test is used for clinical purposes. It should not be regarded as investigational or for research. This laboratory is certified under the Clinical Laboratory Improvement Amendments of 1988 (CLIA-88) as qualified to perform high complexity clinical laboratory testing.CREATINE KINASE (CK)2021-07-27 11:43:25 Test Item Value Reference Range Interpretation Comments CREATINE KINASE TOTAL (BEAKER) (test 948 U/L 29-200 H code = 380) Branch Billing Payroll Clerk ID - ROSS MPOCT-GLUCOSE [id number] 11:23:16 Test Item Value Reference Range Interpretation Comments POC-GLUCOSE METER 117 mg/dL 70-110 H : TESTED A T [facility] [address] (BEAKER) (test code = [place], 1538) [id number]: Branch Billing Payroll Clerk/Techni mayela ID = [id number] for Jesika gypsy (contract)Queta BLOOD GAS, [id number] 11:17:34 Test Item Value Reference Range Interpretation Comments PH ARTERIAL (BEAKER) (test code = 7.52 7.35-7.45 H 383) PCO2 ARTERIAL (BEAKER) (test code 41 mm Hg 35-45 = 384) PO2 ARTERIAL (BEAKER) (test code = 188 mm Hg 80-90 H 385) O2 SATURATION ARTERIAL (BEAKER) 99.4 % 96.0-97.0 H (test code = 386) HCO3 ARTERIAL (BEAKER) (test code 33 mmol/L 21-29 H = 388) BASE EXCESS ARTERIAL (BEAKER) 9.2 mmol/L -2.0-3.0 H (test code = 387) PATIENT TEMPERATURE (BEAKER) (test 38.0 code = 1818) FIO2 (BEAKER) (test code = 1819) 35.0 SARS-COV2/RT-PCR ([facility])2021-07-27 08:22:59 Test Item Value Reference Range Interpretation Comments SARS-COV2/RT-PCR (test Negative Not Detected, Negative, code = 8103334) See external report for linked test SARS-COV-[address] [facility] TIAN (test code = 1067803) Negative result for this test determines that SARS-CoV-2 RNA was not present in the specimen above the Limit of Detection (LOD). However, Negative results do not preclude SARS-CoV-2 infection and should not be used as the sole basis for treatment or patient management decisions. Negative results mustbe combined with clinical observations, patient history, and epidemiological information. A false negative result may occur if a specimen is improperly collected, transported or handled. A false negative result should be considered if patient's recent exposures or clinical presentation indicate that COVID-19 (SARS-CoV-2) is likely and diagnostic tests for other causes of illness are negative. Re-testing should be considered in cases of suspected false negatives.The limit of detection for this assay is 800 copies/mL.This SARS CoV-2 test is a real-time RT-PCR test intended for the qualitative detection of nucleic acid from SARS-CoV-2 in a nasopharyngeal swab specimen collected from individuals susp ected of COVID-19 by their healthcare provider.This test has not been Food and Drug Administration (FDA) cleared or approved. This is a modified version of an approved Emergency Use Authorization (EUA) and is in the process of review by the FDA. Once authorized by the FDA, the issued EUA will be effective until the declaration that circumstances exist justifying the authorization of the emergency use of in vitro diagnostic tests for detection and/or diagnosis of COVID-19 is terminated under Section 564(b)(2) of the Act or the EUA is revoked under Section 564(g) of the Act.Fact Sheet for Healthcare Providers:https://www.[employer]ovation.com/sites/default/files/product/documents/Fact_Shee u_SM_Fbtnmwnbi_Eihj_QURS-MqY-6.pdfFact Sheet for Healthcare Patients:https://www.[employer].com/sites/default/files/product/ documents/Yrvs_Wnktn_Gjhdyrua_Vzry_SJBY-IeY-0.pdfPerforming Laboratory:[facility], [place] [address]MVLNY METABOLIC PANEL 2021-07-27 06:19:07 Test Item Value Reference Range Interpretation Comments SODIUM (BEAKER) 142 meq/L 136-145 This is a co rrected (test code = 381) result. Pr evious result was 139 meq/L on 07/27/2021 a t 0311 CDT POTASSIUM (BEAKER) 3.5 meq/L 3.5-5.1 Specimen slightly (test code = 379) hemolyzedT his is a corrected resul t. Previous result was 3.6 meq/L on 07/27/2021 at 0 311 CDT CHLORIDE (BEAKER) 105 meq/L 98-107 This is a corrected (test code = 382) result. Pr evious result was 104 meq/L on 07/27/2021 a t 0311 CDT CO2 (BEAKER) (test 30 meq/L 22-29 H This is a corrected code = 355) result. Previou s result was 29 m eq/L on 07/27/2021 a t 0311 CDT BLOOD UREA NITROGEN 11 mg/dL 7-21 (BEAKER) (test code = 354) CREATININE (BEAKER) 0.54 mg/dL 0.57-1.25 L Specimen slightly (test code = 358) hemolyzedT his is a corrected resul t. Previous result was 0.62 mg/dL on 07/27/2021 at 0 311 CDT GLUCOSE RANDOM 116 mg/dL 70-105 H This is a cor rected (BEAKER) (test code result. Previous = 652) result was 125 mg/dL on 07/27/2021 a t 0311 CDT CALCIUM (BEAKER) 8.5 mg/dL 8.4-10.2 This is a c orrected (test code = 697) result. Pr evious result was 8.7 mg/dL on 07/27/2021 a t 0311 CDT EGFR (BEAKER) (test 227 ESTIMATE D GFR IS NOT code = 1092) mL/min/1.73 sq ACCURATE A S m CREATININE LESLEY GERSON IN PREDICTING GLOMERULAR FILT RATION RATE. ESTIMATED GFR IS NOT APPLICAB LE FOR DIALYSIS PATIENTS.This i s a corrected resul t. Previous result was 193 mL/min/1.73 sq m on 07/27/2021 a t 0311 CDT Branch Billing Payroll Clerk ID - MARK LRAD, CHEST, 1 VIEW, NON [id number] 04:31:00Reason for exam:->While intubatedShould this be performed at the bedside?->Yes [facility] : 1995 Sex: MFINAL REPORT RAD, CHEST, 1 VIEW, NON DEPT INDICATION: While intubated COMPARISON: Prior day's exam FINDINGS: Portable frontal view of the chest. IMPRESSION: SupportLines: Stable. Lungs and pleura: Unchanged bilateral patchy airspace opacities and trace pleural effusions. No pneumothorax. Heart and mediastinum: Stable contours. Additional findings: None. Signed: Manny Arteaga MDReport Verified Date/Time: 07/27/2021 04:31:13 HEPATIC FUNCTION [id number] 03:04:19 Test Item Value Reference Range Interpretation Comments TOTAL PROTEIN (BEAKER) (test code = 7.6 gm/dL 6.0-8.3 770) ALBUMIN (BEAKER) (test code = 1145) 2.7 g/dL 3.5-5.0 L BILIRUBIN TOTAL (BEAKER) (test code 0.7 mg/dL 0.2-1.2 = 377) BILIRUBIN DIRECT (BEAKER) (test 0.4 mg/dL 0.1-0.5 code = 706) ALKALINE PHOSPHATASE (BEAKER) (test 102 U/L 40-150 code = 346) AST (SGOT) (BEAKER) (test code = 72 U/L 5-34 H 353) ALT (SGPT) (BEAKER) (test code = 48 U/L 6-55 347) Branch Billing Payroll Clerk ID - PIAYA [id number] 03:04:18 Test Item Value Reference Range Interpretation Comments PHOSPHORUS (BEAKER) (test code = 3.2 mg/dL 2.3-4.7 604) Branch Billing Payroll Clerk ID - MARK [id number] 03:04:18 Test Item Value Reference Range Interpretation Comments TRIGLYCERIDES (BEAKER) (test code = 164 mg/dL 540) TRIGLYCERIDE REFERENCE RANGELow Risk <150Borderline Risk 150-199High Risk 200-499Very High Risk>=500Operator ID - MARK [id number] 03:04:17 Test Item Value Reference Range Interpretation Comments MAGNESIUM (BEAKER) (test code = 2.0 mg/dL 1.6-2.6 627) Branch Billing Payroll Clerk ID - PIHAL [id number] 02:42:51 Test Item Value Reference Range Interpretation Comments PARTIAL THROMBOPLASTIN TIME 42.0 seconds 22.5-36.0 H (BEAKER) (test code = 760) [id number] 02:42:12 Test Item Value Reference Range Interpretation Comments FIBRINOGEN LEVEL (BEAKER) (test 816 mg/dl 225-434 H code = 658) PROTHROMBIN TIME/[id number] 02:41:13 Test Item Value Reference Range Interpretation Comments PROTIME (BEAKER) 15.5 seconds 11.9-14.2 H (test code = 759) INR (BEAKER) (test 1.25 See_Comment [Automat ed message] code = 370) The system [employer] generated this result transmitted ref erence range: <=5.90. The reference range was not used to int erpret this result as normal/abnormal . RECOMMENDED COUMADIN/WARFARIN INR THERAPY RANGESSTANDARD DOSE: 2.0 - 3.0 Includes: PROPHYLAXIS forvenous thrombosis, systemic embolization; TREATMENT for venous thrombosis and/or pulmonary embolus.HIGH RISK: Target INR is 2.5-3.5 for patients with mechanical heart valves.CBC W/PLT COUNT & AUTO DIFFERENTIAL 2021-07-27 02:34:07 Test Item Value Reference Range Interpretation Comments WHITE BLOOD CELL COUNT (BEAKER) 17.1 K/ L 3.5-10.5 H (test code = 775) RED BLOOD CELL COUNT (BEAKER) 3.79 M/ L 4.63-6.08 L (test code = 761) HEMOGLOBIN (BEAKER) (test code = 10.8 GM/DL 13.7-17.5 L 410) HEMATOCRIT (BEAKER) (test code = 32.6 % 40.1-51.0 L 411) MEAN CORPUSCULAR VOLUME (BEAKER) 86.0 fL 79.0-92.2 (test code = 753) MEAN CORPUSCULAR HEMOGLOBIN 28.5 pg 25.7-32.2 (BEAKER) (test code = 751) MEAN CORPUSCULAR HEMOGLOBIN CONC 33.1 GM/DL 32.3-36.5 (BEAKER) (test code = 752) RED CELL DISTRIBUTION WIDTH 11.8 % 11.6-14.4 (BEAKER) (test code = 412) PLATELET COUNT (BEAKER) (test 618 K/CU MM 150-450 H code = 756) MEAN PLATELET VOLUME (BEAKER) 8.6 fL 9.4-12.4 L (test code = 754) NUCLEATED RED BLOOD CELLS 0 /100 WBC 0-0 (BEAKER) (test code = 413) NEUTROPHILS RELATIVE PERCENT 72 % (BEAKER) (test code = 429) LYMPHOCYTES RELATIVE PERCENT 11 % (BEAKER) (test code = 430) MONOCYTES RELATIVE PERCENT 9 % (BEAKER) (test code = 431) EOSINOPHILS RELATIVE PERCENT 5 % (BEAKER) (test code = 432) BASOPHILS RELATIVE PERCENT 1 % (BEAKER) (test code = 437) NEUTROPHILS ABSOLUTE COUNT 12.32 K/ L 1.78-5.38 H (BEAKER) (test code = 670) LYMPHOCYTES ABSOLUTE COUNT 1.84 K/ L 1.32-3.57 (BEAKER) (test code = 414) MONOCYTES ABSOLUTE COUNT (BEAKER) 1.48 K/ L 0.30-0.82 H (test code = 415) EOSINOPHILS ABSOLUTE COUNT 0.79 K/ L 0.04-0.54 H (BEAKER) (test code = 416) BASOPHILS ABSOLUTE COUNT (BEAKER) 0.09 K/ L 0.01-0.08 H (test code = 417) IMMATURE GRANULOCYTES-RELATIVE 3 % 0-1 H PERCENT (BEAKER) (test code = 2801) CALCIUM, [id number] 01:43:33 Test Item Value Reference Range Interpretation Comments CALCIUM IONIZED (BEAKER) (test 1.37 mmol/L 1.12-1.27 H code = 698) PH, BLOOD (BEAKER) (test code = 7.49 1810) BLOOD GAS, [id number] 01:43:33 Test Item Value Reference Range Interpretation Comments PH VENOUS (BEAKER) (test code = 7.48 7.32-7.42 H 701) PCO2 VENOUS (BEAKER) (test code = 44 mm Hg 41-51 755) PO2 VENOUS (BEAKER) (test code = 65 mm Hg 25-40 H 702) O2 SATURATION VENOUS (BEAKER) 93.6 % 40.0-70.0 H (test code = 703) HCO3 VENOUS (BEAKER) (test code = 32 mmol/L 21-29 H 705) BASE EXCESS VENOUS (BEAKER) (test 7.8 mmol/L -2.0-3.0 H code = 704) PATIENT TEMPERATURE (BEAKER) (test 37.5 code = 1818) FIO2 (BEAKER) (test code = 1819) 35.0 [id number] 20:59:16 Test Item Value Reference Range Interpretation Comments MAGNESIUM (BEAKER) (test code = 2.0 mg/dL 1.6-2.6 627) Branch Billing Payroll Clerk ID - ADMINBASIC METABOLIC [id number] 20:59:15 Test Item Value Reference Range Interpretation Comments SODIUM (BEAKER) 143 meq/L 136-145 (test code = 381) POTASSIUM (BEAKER) 3.8 meq/L 3.5-5.1 (test code = 379) CHLORIDE (BEAKER) 105 meq/L 98-107 (test code = 382) CO2 (BEAKER) (test 25 meq/L 22-29 code = 355) BLOOD UREA NITROGEN 8 mg/dL 7-21 (BEAKER) (test code = 354) CREATININE (BEAKER) 0.55 mg/dL 0.57-1.25 L (test code = 358) GLUCOSE RANDOM 123 mg/dL 70-105 H (BEAKER) (test code = 652) CALCIUM (BEAKER) 8.6 mg/dL 8.4-10.2 (test code = 697) EGFR (BEAKER) (test 222 mL/min/1.73 ESTIM ATED GFR IS code = 1092) sq m NOT ACCURATE CREATININE CLEARANCE IN PREDICTING GLOMERULAR FILTRATION RATE . ESTIMATED GFR I S NOT APPLICABLE FOR DIALYSIS PATIEN TS. Branch Billing Payroll Clerk ID - ADMINPOCT-GLUCOSE [id number] 18:47:26 Test Item Value Reference Range Interpretation Comments POC-GLUCOSE METER 126 mg/dL 70-110 H : TESTED A T [facility] 6720 (BEAKER) (test code = AL[place] VINSON RI, 1538) 18951: Branch Billing Payroll Clerk/Techni mayela ID = [id number] for MARY JO SIERRA BLOOD GAS, [id number] 16:38:22 Test Item Value Reference Range Interpretation Comments PH ARTERIAL (BEAKER) (test code = 7.48 7.35-7.45 H 383) PCO2 ARTERIAL (BEAKER) (test code 42 mm Hg 35-45 = 384) PO2 ARTERIAL (BEAKER) (test code = 79 mm Hg 80-90 L 385) O2 SATURATION ARTERIAL (BEAKER) 96.3 % 96.0-97.0 (test code = 386) HCO3 ARTERIAL (BEAKER) (test code 31 mmol/L 21-29 H = 388) BASE EXCESS ARTERIAL (BEAKER) 6.7 mmol/L -2.0-3.0 H (test code = 387) PATIENT TEMPERATURE (BEAKER) (test 37.2 code = 1818) FIO2 (BEAKER) (test code = 1819) 35.0 SPIN/CONCENTRATION [id number] 14:49:09 Test Item Value Reference Range Interpretation Comments CONCENTRATION CHARGED (BEAKER) (test Done code = 2657) [id number] 14:09:24Medical Cytology Report Case: [id number] Authorizing Provider: Rashawn Hernandez MD Collected: 07/22/2021 03:40 PM Ordering Location: [place] [address] ICU Received: 07/25/2021 11:24 AM Pathologist: Demetra Feliz MD Specimen: Lung, Left Lower Lobe NEGATIVE FOR MALIGNANCY LUNG, LEFT LOWER LOBE, BRONCHOALVEOLAR LAVAGE: - NEGATIVE FOR MALIGNANCY - OBSCURING ACUTE INFLAMMATION; SCATTERED RESPIRATORY CELLS AND SUPERFICIAL SQUAMOUS CELLS PRESENT - GMS STAIN IS NEGATIVE FOR PNEUMOCYSTIC AND FUNGAL ORGANISMS - NO VIRAL ILNCLUSIONS SEEN Signing Pathologist Direct Phone Line: [phone] signed by Demetra Feliz MD on 07/26/2021 at 2:09 [id number], [id number] with 2 weeks of pleuritic chest pain and fevers, found to have a necrotizing pneumonia on imaging for which he underwent bronch on (07/22/2021)LUNG, LEFT LOWER LOBE, BAL Received 20 mls cytorich red; prepared 3 cytospins and 1 GMS stain Performed. SatisfactoryThe interpretation of this case included theuse of immunohistochemistry or special stains.GMSControl Slides Examined: In-house known positive controls were evaluated along with the test tissue. These control slides run alongside of the patients sample show appropriate staining. Internal positive and negative controls when available are evaluated Immunohistochemistry technical testing was performed at [facility], Pathology Laboratory where it was developed and its performance characteristics were determined. It has not been cleared or approved by the U.S. Food and Drug Administration. The FDA has determined that such cl earance or approval is not necessary. The test is used for clinical purposes. It should not be regarded as investigational or for research. This laboratory is certified under the Clinical Laboratory Improvement Amendments of 1988 (CLIA-88) as qualified to perform high complexity clinical laboratory testing.[facility], Department of Pathology, [address] [place] [id number], [facility], [facility] of [facility], [address] [place] [address], PndhfiLittle [facility], Department of Pathology, [address] [place] [address], OKST-GLUCOSE [id number] 12:20:06 Test Item Value Reference Range Interpretation Comments POC-GLUCOSE METER 141 mg/dL 70-110 H : TESTED A T [facility] 6720 (BEAKER) (test code = [facility] Tavo [facility], 1538) [id number]: Branch Billing Payroll Clerk/Techni mayela ID = [id number] for MARY JO SIERRA BLOOD GAS, [id number] 11:27:02 Test Item Value Reference Range Interpretation Comments PH ARTERIAL (BEAKER) (test code = 7.51 7.35-7.45 H 383) PCO2 ARTERIAL (BEAKER) (test code 40 mm Hg 35-45 = 384) PO2 ARTERIAL (BEAKER) (test code = 75 mm Hg 80-90 L 385) O2 SATURATION ARTERIAL (BEAKER) 96.0 % 96.0-97.0 (test code = 386) HCO3 ARTERIAL (BEAKER) (test code 31 mmol/L 21-29 H = 388) BASE EXCESS ARTERIAL (BEAKER) 7.5 mmol/L -2.0-3.0 H (test code = 387) PATIENT TEMPERATURE (BEAKER) (test 37.3 code = 1818) FIO2 (BEAKER) (test code = 1819) 40.0 [id number] 11:26:13 Test Item Value Reference Range Interpretation Comments TRIGLYCERIDES (BEAKER) (test code = 240 mg/dL 540) TRIGLYCERIDE REFERENCE RANGELow Risk <150Borderline Risk 150-199High Risk 200-499Very High Risk>=500Operator ID - PIAYA LCRYPTOCOCCAL [id number] 10:56:53 Test Item Value Reference Range Interpretation Comments CRYPTOCOCCAL ANTIGEN, SERUM Negative Negative, Interference (BEAKER) (test code = 1828) RAD, CHEST, 1 VIEW, NON [id number] 09:23:00Reason for exam:->While intubatedShould this be performed at the bedside?->Yes [facility] 1995 Sex: MFINAL REPORT CHEST ONE VIEW HISTORY: Intubation COMPARISON: 07/25/2021 at 1739 hours FINDINGS: Single portable AP examination of the chest was performed. Endotrachealtube tip is 4 cm proximal to the tatiana. Nasogastric tube passes below the diaphragm, with the tip not imaged. Airspace consolidation throughout the left lung and small left pleural effusion are without appreciable change. Milder airspace opacities in the lower right lung are also unchanged. No pneumothorax. The cardiac shadow appears normal in size. Signed: Glynn Crandalleport Verified Date/Time:07/26/2021 09:23:09 Reading Location: [facility] Radiology Reading Room POCT-GLUCOSE [id number] 05:51:41 Test Item Value Reference Range Interpretation Comments POC-GLUCOSE METER 108 mg/dL 70-110 : TESTED A T [facility] 6720 (BEAKER) (test code = [place], 1538) [id number]: Branch Billing Payroll Clerk/Techni mayela ID = [id number] for KAISER CATES [id number] 05:17:08 Test Item Value Reference Range Interpretation Comments MAGNESIUM (BEAKER) (test code = 1.8 mg/dL 1.6-2.6 627) Branch Billing Payroll Clerk ID - PIAYA LCREATINE KINASE (CK)2021-07-26 05:17:08 Test Item Value Reference Range Interpretation Comments CREATINE KINASE TOTAL (BEAKER) (test 1533 U/L 29-200 H code = 380) Branch Billing Payroll Clerk ID - PIAYA LBASIC METABOLIC [id number] 05:17:07 Test Item Value Reference Range Interpretation Comments SODIUM (BEAKER) 140 meq/L 136-145 (test code = 381) POTASSIUM (BEAKER) 4.0 meq/L 3.5-5.1 (test code = 379) CHLORIDE (BEAKER) 104 meq/L 98-107 (test code = 382) CO2 (BEAKER) (test 27 meq/L 22-29 code = 355) BLOOD UREA NITROGEN 3 mg/dL 7-21 L (BEAKER) (test code = 354) CREATININE (BEAKER) 0.57 mg/dL 0.57-1.25 (test code = 358) GLUCOSE RANDOM 124 mg/dL 70-105 H (BEAKER) (test code = 652) CALCIUM (BEAKER) 8.5 mg/dL 8.4-10.2 (test code = 697) EGFR (BEAKER) (test 213 mL/min/1.73 ESTIM ATED GFR IS code = 1092) sq m NOT ACCURATE CREATININE CLEARANCE IN PREDICTING GLOMERULAR FILTRATION RATE . ESTIMATED GFR I S NOT APPLICABLE FOR DIALYSIS PATIEN TS. Branch Billing Payroll Clerk ID - PIAYA LCBC W/PLT COUNT & AUTO [id number] 04:54:18 Test Item Value Reference Range Interpretation Comments WHITE BLOOD CELL COUNT (BEAKER) 19.3 K/ L 3.5-10.5 H (test code = 775) RED BLOOD CELL COUNT (BEAKER) 3.68 M/ L 4.63-6.08 L (test code = 761) HEMOGLOBIN (BEAKER) (test code = 10.2 GM/DL 13.7-17.5 L 410) HEMATOCRIT (BEAKER) (test code = 31.8 % 40.1-51.0 L 411) MEAN CORPUSCULAR VOLUME (BEAKER) 86.4 fL 79.0-92.2 (test code = 753) MEAN CORPUSCULAR HEMOGLOBIN 27.7 pg 25.7-32.2 (BEAKER) (test code = 751) MEAN CORPUSCULAR HEMOGLOBIN CONC 32.1 GM/DL 32.3-36.5 L (BEAKER) (test code = 752) RED CELL DISTRIBUTION WIDTH 11.8 % 11.6-14.4 (BEAKER) (test code = 412) PLATELET COUNT (BEAKER) (test 592 K/CU MM 150-450 H code = 756) MEAN PLATELET VOLUME (BEAKER) 8.6 fL 9.4-12.4 L (test code = 754) NUCLEATED RED BLOOD CELLS 0 /100 WBC 0-0 (BEAKER) (test code = 413) NEUTROPHILS RELATIVE PERCENT 78 % (BEAKER) (test code = 429) LYMPHOCYTES RELATIVE PERCENT 9 % (BEAKER) (test code = 430) MONOCYTES RELATIVE PERCENT 6 % (BEAKER) (test code = 431) EOSINOPHILS RELATIVE PERCENT 5 % (BEAKER) (test code = 432) BASOPHILS RELATIVE PERCENT 1 % (BEAKER) (test code = 437) NEUTROPHILS ABSOLUTE COUNT 14.96 K/ L 1.78-5.38 H (BEAKER) (test code = 670) LYMPHOCYTES ABSOLUTE COUNT 1.74 K/ L 1.32-3.57 (BEAKER) (test code = 414) MONOCYTES ABSOLUTE COUNT (BEAKER) 1.19 K/ L 0.30-0.82 H (test code = 415) EOSINOPHILS ABSOLUTE COUNT 0.89 K/ L 0.04-0.54 H (BEAKER) (test code = 416) BASOPHILS ABSOLUTE COUNT (BEAKER) 0.11 K/ L 0.01-0.08 H (test code = 417) IMMATURE GRANULOCYTES-RELATIVE 2 % 0-1 H PERCENT (BEAKER) (test code = 2801) CALCIUM, [id number] 04:49:01 Test Item Value Reference Range Interpretation Comments CALCIUM IONIZED (BEAKER) (test 1.06 mmol/L 1.12-1.27 L code = 698) PH, BLOOD (BEAKER) (test code = 7.50 1810) BLOOD GAS, [id number] 04:49:00 Test Item Value Reference Range Interpretation Comments PH ARTERIAL (BEAKER) (test code = 7.50 7.35-7.45 H 383) PCO2 ARTERIAL (BEAKER) (test code 40 mm Hg 35-45 = 384) PO2 ARTERIAL (BEAKER) (test code = 112 mm Hg 80-90 H 385) O2 SATURATION ARTERIAL (BEAKER) 98.4 % 96.0-97.0 H (test code = 386) HCO3 ARTERIAL (BEAKER) (test code 31 mmol/L 21-29 H = 388) BASE EXCESS ARTERIAL (BEAKER) 6.8 mmol/L -2.0-3.0 H (test code = 387) PATIENT TEMPERATURE (BEAKER) (test 37.0 code = 1818) CT, CHEST, WITH [id number] 02:19:00Unlisted Reason for Exam - Click Yes and Enter Reason Below->NoRe eval Lung [facility] : 1995 Sex: MFINAL REPORT EXAM: CT of the chest with contrast. CLINICAL HISTORY: Abscess, lung or mediastinum TECHNIQUE: Chest CT was performed with intravenous contrast. This exam was performed according to our departmental dose optimization program which includes automated exposure control, adjustment of the mA and/or kV according to patient's size and/or use of iterative recon structive technique. COMPARISON: None FINDINGS: LOWER NECK: Within normal limits. AIRWAYS AND LUNGS: Endotracheal tube is satisfactory position. Layering secretions in the trachea and right mainstem bronchus. Diffuse airspace opacities in the left upper lobe, bilateral lower lobes, lingula and to a lesser extent the right middle and right upper lobes compatible with pneumonia. 2.6 x 2.2 x 2.1 cm cavity with an air-fluid level in the left lower lobe consistent with superinfection. Small loculated left pleural effusion. No pneumothorax. VESSELS: Within normal limits. HEART: Normal heart size. No pericardial effusion.DEBBIE AND MEDIASTINUM: Within normal limits.VISUALIZED UPPER ABDOMEN: Partially imaged enteric tube overlying the stomach.SOFT TISSUES: Within normal limits.BONES: Within normal limits. IMPRESSION:Multilobar pneumonia.2.6 x 2 x 2.1 cm left lower lobe cavity with an air-fluid level consistent with superinfection.Tracheobronchial secretions concerning for aspiration.Small left pleural effusion.Borderline cardiomegaly. Signed: [facility]ely [facility]ale [facility] Verified Date/Time: 07/26/2021 02:19:07 POCT-GLUCOSE [id number] 23:15:18 Test Item Value Reference Range Interpretation Comments POC-GLUCOSE METER 106 mg/dL 70-110 : TESTED A T [facility] 6720 (BEAKER) (test code = [facility] Tavo [facility], 1538) [id number]: Branch Billing Payroll Clerk/Techni mayela ID = [id number] for KAISER CATES BLOOD GAS, [id number] 22:55:32 Test Item Value Reference Range Interpretation Comments PH ARTERIAL (BEAKER) (test code = 7.45 7.35-7.45 383) PCO2 ARTERIAL (BEAKER) (test code 44 mm Hg 35-45 = 384) PO2 ARTERIAL (BEAKER) (test code = 168 mm Hg 80-90 H 385) O2 SATURATION ARTERIAL (BEAKER) 99.1 % 96.0-97.0 H (test code = 386) HCO3 ARTERIAL (BEAKER) (test code 29 mmol/L 21-29 = 388) BASE EXCESS ARTERIAL (BEAKER) 5.1 mmol/L -2.0-3.0 H (test code = 387) PATIENT TEMPERATURE (BEAKER) (test 38.5 code = 1818) FIO2 (BEAKER) (test code = 1819) 45.0 COMPREHENSIVE METABOLIC [id number] 19:41:28 Test Item Value Reference Range Interpretation Comments TOTAL PROTEIN 6.5 gm/dL 6.0-8.3 (BEAKER) (test code = 770) ALBUMIN (BEAKER) 2.4 g/dL 3.5-5.0 L (test code = 1145) ALKALINE PHOSPHATASE 83 U/L 40-150 (BEAKER) (test code = 346) BILIRUBIN TOTAL 0.5 mg/dL 0.2-1.2 (BEAKER) (test code = 377) SODIUM (BEAKER) (test 138 meq/L 136-145 code = 381) POTASSIUM (BEAKER) 3.3 meq/L 3.5-5.1 L (test code = 379) CHLORIDE (BEAKER) 105 meq/L 98-107 (test code = 382) CO2 (BEAKER) (test 25 meq/L 22-29 code = 355) BLOOD UREA NITROGEN 4 mg/dL 7-21 L (BEAKER) (test code = 354) CREATININE (BEAKER) 0.55 mg/dL 0.57-1.25 L (test code = 358) GLUCOSE RANDOM 126 mg/dL 70-105 H (BEAKER) (test code = 652) CALCIUM (BEAKER) 7.7 mg/dL 8.4-10.2 L (test code = 697) AST (SGOT) (BEAKER) 43 U/L 5-34 H (test code = 353) ALT (SGPT) (BEAKER) 23 U/L 6-55 (test code = 347) EGFR (BEAKER) (test 222 ESTIMATE D GFR IS code = 1092) mL/min/1.73 sq NOT ACCURA TE m CREATININE CLEARANCE IN PREDICTING GLOMERULAR FILTRATION RATE . ESTIMATED GFR I S NOT APPLICABLE FOR DIALYSIS PATIEN TS. Branch Billing Payroll Clerk ID - DBRAD, CHEST, 1 VIEW, NON [id number] 19:41:00Reason for exam:- >Desat while intubatedShould this be performed at the bedside?->Yes [facility] 1995 Sex: MFINAL REPORT RAD, CHEST, 1 VIEW, NON DEPT INDICATION: Desat while i ntubated COMPARISON: Exam from four hours prior FINDINGS: Portable frontal view of the chest. IMPRESSION: Support Lines: The endotracheal tube terminates 5.6 cm cephalad to the tatiana. Enteric tube descends below the gastric esophageal junction out of the [id number]. Lungs and pleura: Left greater than right airspace opacities and left pleural effusion. No pneumothorax. Heart and mediastinum: Stable contours. Additional findings: None. Signed: Manny Arteaga MDRort Verified Date/Time: 07/25/2021 19:41:29 CREATINE KINASE (CK)2021-07-25 19:34:22 Test Item Value Reference Range Interpretation Comments CREATINE KINASE TOTAL (BEAKER) (test 1551 U/L 29-200 H code = 380) Branch Billing Payroll Clerk ID - DBBLOOD GAS, [id number] 18:20:16 Test Item Value Reference Range Interpretation Comments PH ARTERIAL (BEAKER) (test code = 7.48 7.35-7.45 H 383) PCO2 ARTERIAL (BEAKER) (test code 43 mm Hg 35-45 = 384) PO2 ARTERIAL (BEAKER) (test code = 75 mm Hg 80-90 L 385) O2 SATURATION ARTERIAL (BEAKER) 94.6 % 96.0-97.0 L (test code = 386) HCO3 ARTERIAL (BEAKER) (test code 31 mmol/L 21-29 H = 388) BASE EXCESS ARTERIAL (BEAKER) 7.2 mmol/L -2.0-3.0 H (test code = 387) PATIENT TEMPERATURE (BEAKER) (test 39.0 code = 1818) FIO2 (BEAKER) (test code = 1819) 40.0 CALCIUM, [id number] 18:20:16 Test Item Value Reference Range Interpretation Comments CALCIUM IONIZED (BEAKER) (test 0.95 mmol/L 1.12-1.27 L code = 698) PH, BLOOD (BEAKER) (test code = 7.51 1810) POCT-GLUCOSE [id number] 17:55:45 Test Item Value Reference Range Interpretation Comments POC-GLUCOSE METER 108 mg/dL 70-110 : TESTED A T [facility] 6720 (BEAKER) (test code [facility], = 1538) [id number]: Branch Billing Payroll Clerk/Techni mayela ID = [id number] for Marjorie motta (contract)Marcelo [id number] 17:13:59 Test Item Value Reference Range Interpretation Comments MAGNESIUM (BEAKER) (test code = 1.6 mg/dL 1.6-2.6 627) Branch Billing Payroll Clerk ID - DBBASIC METABOLIC [id number] 17:13:58 Test Item Value Reference Range Interpretation Comments SODIUM (BEAKER) 137 meq/L 136-145 (test code = 381) POTASSIUM (BEAKER) 3.7 meq/L 3.5-5.1 (test code = 379) CHLORIDE (BEAKER) 104 meq/L 98-107 (test code = 382) CO2 (BEAKER) (test 24 meq/L 22-29 code = 355) BLOOD UREA NITROGEN 5 mg/dL 7-21 L (BEAKER) (test code = 354) CREATININE (BEAKER) 0.57 mg/dL 0.57-1.25 (test code = 358) GLUCOSE RANDOM 145 mg/dL 70-105 H (BEAKER) (test code = 652) CALCIUM (BEAKER) 8.1 mg/dL 8.4-10.2 L (test code = 697) EGFR (BEAKER) (test 213 mL/min/1.73 ESTIM ATED GFR IS code = 1092) sq m NOT ACCURATE CREATININE CLEARANCE IN PREDICTING GLOMERULAR FILTRATION RATE . ESTIMATED GFR I S NOT APPLICABLE FOR DIALYSIS PATIEN TS. Branch Billing Payroll Clerk ID - DBVANCOMYCIN LEVEL, [id number] 16:02:35 Test Item Value Reference Range Interpretation Comments VANCOMYCIN TROUGH (BEAKER) (test 8.0 ug/mL 10.0-20.0 L code = 522) Branch Billing Payroll Clerk ID - FSEBLOOD GAS, [id number] 15:49:16 Test Item Value Reference Range Interpretation Comments PH ARTERIAL (BEAKER) (test code = 7.46 7.35-7.45 H 383) PCO2 ARTERIAL (BEAKER) (test code 44 mm Hg 35-45 = 384) PO2 ARTERIAL (BEAKER) (test code = 118 mm Hg 80-90 H 385) O2 SATURATION ARTERIAL (BEAKER) 98.3 % 96.0-97.0 H (test code = 386) HCO3 ARTERIAL (BEAKER) (test code 30 mmol/L 21-29 H = 388) BASE EXCESS ARTERIAL (BEAKER) 6.0 mmol/L -2.0-3.0 H (test code = 387) PATIENT TEMPERATURE (BEAKER) (test 38.0 code = 1818) FIO2 (BEAKER) (test code = 1819) 30.0 RAD, CHEST, 1 VIEW, NON [id number] 13:25:00Reason for exam:->While intubatedShould this be performed at the bedside?->Yes [facility] : 1995 Sex: MFINAL REPORT RAD, CHEST, 1 VIEW, NON DEPT INDICATION: While intubated COMPARISON: Earlier same day FINDINGS: Portable frontal view of the chest. IMPRESSION: SupportLines: ET tube tip is 4 cm superior to the tatiana. NG tube descends below the diaphragm Lungs and pleura: Left greater than right airspace disease persists. No significant pneumothorax. Heart and mediastinum: Stable contours. Additional findings: None. Signed: Linsey Tian Verified Date/Time: 07/25/2021 13:25:45 Reading Location: [facility] Radiology Reading Room CYTOLOGY [id number] 13:00:39 Test Item Value Reference Range Interpretation Comments CYTOLOGY RESULT POINTER See Separate Report (BEAKER) (test code = 2629) POCT-GLUCOSE [id number] 12:26:15 Test Item Value Reference Range Interpretation Comments POC-GLUCOSE METER 139 mg/dL 70-110 H : TESTED A T [facility] 6720 (BEAKER) (test code [facility], = 1538) [id number]: Branch Billing Payroll Clerk/Techni mayela ID = [id number] for Marjorie motta (contract)Marcelo BLOOD GAS, [id number] 12:19:31 Test Item Value Reference Range Interpretation Comments PH ARTERIAL (BEAKER) (test code = 7.35 7.35-7.45 383) PCO2 ARTERIAL (BEAKER) (test code 51 mm Hg 35-45 H = 384) PO2 ARTERIAL (BEAKER) (test code = 121 mm Hg 80-90 H 385) O2 SATURATION ARTERIAL (BEAKER) 98.1 % 96.0-97.0 H (test code = 386) HCO3 ARTERIAL (BEAKER) (test code 27 mmol/L 21-29 = 388) BASE EXCESS ARTERIAL (BEAKER) 1.3 mmol/L -2.0-3.0 (test code = 387) PATIENT TEMPERATURE (BEAKER) (test 37.5 code = 1818) FIO2 (BEAKER) (test code = 1819) 40.0 BRONCHIAL CULTURE + GRAM [id number] 08:43:51 Test Item Value Reference Range Interpretation Comments CULTURE (BEAKER) 1+ Normal respiratory (test code = 1095) makayla present GRAM STAIN RESULT 1+ White blood cells (BEAKER) (test code = seen 1123) GRAM STAIN RESULT <1+ gram positive cocci (BEAKER) (test code = in pairs 178027) MRSA [id number] 08:29:54 Test Item Value Reference Range Interpretation Comments CULTURE (BEAKER) (test code No MRSA isolated = 1095) POCT-GLUCOSE [id number] 06:10:32 Test Item Value Reference Range Interpretation Comments POC-GLUCOSE METER 136 mg/dL 70-110 H : TESTED A T [facility] 6720 (BEAKER) (test code [facility], = 1538) [id number]: Branch Billing Payroll Clerk/Techni mayela ID = [id number] for SUGU , SHEENAMOL CBC W/PLT COUNT & AUTO [id number] 04:30:56 Test Item Value Reference Range Interpretation Comments WHITE BLOOD CELL COUNT (BEAKER) 22.3 K/ L 3.5-10.5 H (test code = 775) RED BLOOD CELL COUNT (BEAKER) 3.43 M/ L 4.63-6.08 L (test code = 761) HEMOGLOBIN (BEAKER) (test code = 9.8 GM/DL 13.7-17.5 L 410) HEMATOCRIT (BEAKER) (test code = 31.4 % 40.1-51.0 L 411) MEAN CORPUSCULAR VOLUME (BEAKER) 91.5 fL 79.0-92.2 (test code = 753) MEAN CORPUSCULAR HEMOGLOBIN 28.6 pg 25.7-32.2 (BEAKER) (test code = 751) MEAN CORPUSCULAR HEMOGLOBIN CONC 31.2 GM/DL 32.3-36.5 L (BEAKER) (test code = 752) RED CELL DISTRIBUTION WIDTH 12.0 % 11.6-14.4 (BEAKER) (test code = 412) PLATELET COUNT (BEAKER) (test 493 K/CU MM 150-450 H code = 756) MEAN PLATELET VOLUME (BEAKER) 8.5 fL 9.4-12.4 L (test code = 754) NUCLEATED RED BLOOD CELLS 0 /100 WBC 0-0 (BEAKER) (test code = 413) NEUTROPHILS RELATIVE PERCENT 80 % (BEAKER) (test code = 429) LYMPHOCYTES RELATIVE PERCENT 5 % (BEAKER) (test code = 430) MONOCYTES RELATIVE PERCENT 6 % (BEAKER) (test code = 431) EOSINOPHILS RELATIVE PERCENT 7 % (BEAKER) (test code = 432) BASOPHILS RELATIVE PERCENT 1 % (BEAKER) (test code = 437) NEUTROPHILS ABSOLUTE COUNT 17.82 K/ L 1.78-5.38 H (BEAKER) (test code = 670) LYMPHOCYTES ABSOLUTE COUNT 1.20 K/ L 1.32-3.57 L (BEAKER) (test code = 414) MONOCYTES ABSOLUTE COUNT (BEAKER) 1.36 K/ L 0.30-0.82 H (test code = 415) EOSINOPHILS ABSOLUTE COUNT 1.46 K/ L 0.04-0.54 H (BEAKER) (test code = 416) BASOPHILS ABSOLUTE COUNT (BEAKER) 0.12 K/ L 0.01-0.08 H (test code = 417) IMMATURE GRANULOCYTES-RELATIVE 1 % 0-1 PERCENT (BEAKER) (test code = 2801) BASIC METABOLIC [id number] 04:14:58 Test Item Value Reference Range Interpretation Comments SODIUM (BEAKER) 138 meq/L 136-145 (test code = 381) POTASSIUM (BEAKER) 4.1 meq/L 3.5-5.1 Specimen slightly (test code = 379) hemolyzed CHLORIDE (BEAKER) 107 meq/L 98-107 (test code = 382) CO2 (BEAKER) (test 22 meq/L 22-29 code = 355) BLOOD UREA NITROGEN 5 mg/dL 7-21 L (BEAKER) (test code = 354) CREATININE (BEAKER) 0.57 mg/dL 0.57-1.25 Specimen slightly (test code = 358) hemolyzed GLUCOSE RANDOM 142 mg/dL 70-105 H (BEAKER) (test code = 652) CALCIUM (BEAKER) 8.2 mg/dL 8.4-10.2 L (test code = 697) EGFR (BEAKER) (test 213 mL/min/1.73 ESTIM ATED GFR IS code = 1092) sq m NOT ACCURATE CREATININE CLEARANCE IN PREDICTING GLOMERULAR FILTRATION RATE . ESTIMATED GFR I S NOT APPLICABLE FOR DIALYSIS PATIEN TS. Branch Billing Payroll Clerk ID - PIAYA LHEPATIC FUNCTION [id number] 04:14:58 Test Item Value Reference Range Interpretation Comments TOTAL PROTEIN (BEAKER) 6.6 gm/dL 6.0-8.3 Speci men slightly (test code = 770) hemolyzed ALBUMIN (BEAKER) (test 2.5 g/dL 3.5-5.0 L Speci men slightly code = 1145) hemolyzed BILIRUBIN TOTAL 0.6 mg/dL 0.2-1.2 Specimen sli ghtly (BEAKER) (test code = hemoly zed 377) BILIRUBIN DIRECT 0.3 mg/dL 0.1-0.5 Specimen sl ightly (BEAKER) (test code = hemoly zed 706) ALKALINE PHOSPHATASE 92 U/L 40-150 (BEAKER) (test code = 346) AST (SGOT) (BEAKER) 44 U/L 5-34 H Specimen slightly (test code = 353) hemolyzed ALT (SGPT) (BEAKER) 21 U/L 6-55 Specimen slightly (test code = 347) hemolyzed Branch Billing Payroll Clerk ID Franck FLORES [id number] 04:14:57 Test Item Value Reference Range Interpretation Comments MAGNESIUM (BEAKER) 1.8 mg/dL 1.6-2.6 Specimen slightly (test code = 627) hemolyzed Branch Billing Payroll Clerk ID Franck FLORES LBLOOD GAS, [id number] 03:52:21 Test Item Value Reference Range Interpretation Comments PH ARTERIAL (BEAKER) (test code = 7.40 7.35-7.45 383) PCO2 ARTERIAL (BEAKER) (test code 45 mm Hg 35-45 = 384) PO2 ARTERIAL (BEAKER) (test code = 155 mm Hg 80-90 H 385) O2 SATURATION ARTERIAL (BEAKER) 99.0 % 96.0-97.0 H (test code = 386) HCO3 ARTERIAL (BEAKER) (test code 27 mmol/L 21-29 = 388) BASE EXCESS ARTERIAL (BEAKER) 1.5 mmol/L -2.0-3.0 (test code = 387) PATIENT TEMPERATURE (BEAKER) (test 37.5 code = 1818) FIO2 (BEAKER) (test code = 1819) 40.0 POCT-GLUCOSE [id number] 00:02:37 Test Item Value Reference Range Interpretation Comments POC-GLUCOSE METER 117 mg/dL 70-110 H : [facility] ([facility]ER) (test code = [place], 1538) [address]: Branch Billing Payroll Clerk/Techni mayela ID = [id number] for Al as, Sydnee BLOOD GAS, [id number] 22:15:50 Test Item Value Reference Range Interpretation Comments PH ARTERIAL (BEAKER) (test code = 7.37 7.35-7.45 383) PCO2 ARTERIAL (BEAKER) (test code 43 mm Hg 35-45 = 384) PO2 ARTERIAL (BEAKER) (test code 166 mm Hg 80-90 H = 385) O2 SATURATION ARTERIAL (BEAKER) 99.1 % 96.0-97.0 H (test code = 386) HCO3 ARTERIAL (BEAKER) (test code 24 mmol/L 21-29 = 388) BASE EXCESS ARTERIAL (BEAKER) -0.8 mmol/L -2.0-3.0 (test code = 387) PATIENT TEMPERATURE (BEAKER) 37.5 (test code = 1818) FIO2 (BEAKER) (test code = 1819) 40.0 [id number] 17:24:53 Test Item Value Reference Range Interpretation Comments MAGNESIUM (BEAKER) (test code = 1.8 mg/dL 1.6-2.6 627) Branch Billing Payroll Clerk ID - MARK LBASIC METABOLIC [id number] 17:24:52 Test Item Value Reference Range Interpretation Comments SODIUM (BEAKER) 142 meq/L 136-145 (test code = 381) POTASSIUM (BEAKER) 4.1 meq/L 3.5-5.1 (test code = 379) CHLORIDE (BEAKER) 111 meq/L 98-107 H (test code = 382) CO2 (BEAKER) (test 22 meq/L 22-29 code = 355) BLOOD UREA NITROGEN 6 mg/dL 7-21 L (BEAKER) (test code = 354) CREATININE (BEAKER) 0.60 mg/dL 0.57-1.25 (test code = 358) GLUCOSE RANDOM 106 mg/dL 70-105 H (BEAKER) (test code = 652) CALCIUM (BEAKER) 8.2 mg/dL 8.4-10.2 L (test code = 697) EGFR (BEAKER) (test 201 mL/min/1.73 ESTIM ATED GFR IS code = 1092) sq m NOT ACCURATE CREATININE CLEARANCE IN PREDICTING GLOMERULAR FILTRATION RATE . ESTIMATED GFR I S NOT APPLICABLE FOR DIALYSIS PATIEN TS. Branch Billing Payroll Clerk ID - PIAYA LBLOOD GAS, [id number] 17:04:13 Test Item Value Reference Range Interpretation Comments PH ARTERIAL (BEAKER) (test code = 7.33 7.35-7.45 L 383) PCO2 ARTERIAL (BEAKER) (test code 49 mm Hg 35-45 H = 384) PO2 ARTERIAL (BEAKER) (test code 118 mm Hg 80-90 H = 385) O2 SATURATION ARTERIAL (BEAKER) 97.9 % 96.0-97.0 H (test code = 386) HCO3 ARTERIAL (BEAKER) (test code 25 mmol/L 21-29 = 388) BASE EXCESS ARTERIAL (BEAKER) -0.9 mmol/L -2.0-3.0 (test code = 387) PATIENT TEMPERATURE (BEAKER) 38.0 (test code = 1818) FIO2 (BEAKER) (test code = 1819) 50.0 POCT-GLUCOSE [id number] 16:58:47 Test Item Value Reference Range Interpretation Comments POC-GLUCOSE METER 103 mg/dL 70-110 : TESTED A T [facility] 6720 (BEAKER) (test code [facility], = 1538) [id number]: Branch Billing Payroll Clerk/Techni mayela ID = [id number] for Marjorie motta (contract)Marcelo BLOOD GAS, [id number] 15:32:47 Test Item Value Reference Range Interpretation Comments PH ARTERIAL (BEAKER) (test code = 7.32 7.35-7.45 L 383) PCO2 ARTERIAL (BEAKER) (test code 49 mm Hg 35-45 H = 384) PO2 ARTERIAL (BEAKER) (test code 101 mm Hg 80-90 H = 385) O2 SATURATION ARTERIAL (BEAKER) 96.8 % 96.0-97.0 (test code = 386) HCO3 ARTERIAL (BEAKER) (test code 25 mmol/L 21-29 = 388) BASE EXCESS ARTERIAL (BEAKER) -1.3 mmol/L -2.0-3.0 (test code = 387) PATIENT TEMPERATURE (BEAKER) 38.1 (test code = 1818) FIO2 (BEAKER) (test code = 1819) 50.0 RAD, CHEST, 1 VIEW, NON [id number] 14:45:00Reason for exam:->While intubatedShould this be performed at the bedside?->Yes [facility] : 1995 Sex: MFINAL REPORT RAD, CHEST, 1 VIEW, NON DEPT INDICATION: While intubated COMPARISON: Prior day's exam FINDINGS: Portable frontal view of the chest. IMPRESSION: SupportLines: ET tube tip is 3 cm superior to the tatiana. NG tube descends below the diaphragm. Lungs and pleura: Decreased airspace disease bilaterally with significant interval "clearing" of the right lung. Left basilar effusion and airspace disease throughout the left lung persist. There is a new lucencyat the left lung apex with attention on follow-up suggested to exclude small pneumothorax. Heart andmediastinum: Stable contours. Additional findings: None. Signed: Linsey Tianepbob Verified Date/Time: 07/24/2021 14:45:51 Electronically signed by: LINSEY TIAN MD on 102:45 PM STREP PNEUMONIAE [id number] 13:34:09 Test Item Value Reference Range Interpretation Comments STREP PNEUMONIAE Presumptive negative Presumptive negative ANTIGEN (BEAKER) for pneumococcal for pneumococcal (test code = 1615) pneumonia - see pneumonia - see comment commen Presumptive negative for pneumococcal pneumonia, suggesting no current or recent pneumococcal infection. Infection due to S. pneumoniae cannot be ruled out since the antigen present in the sample may be below the detection limit of the test. LEGIONELLA ANTIGEN, [id number] 13:33:17 Test Item Value Reference Range Interpretation Comments L. PNEUMOPHILA Negative - see Negative fo r L. SEROGP 1 UR AG comment pneumophila (BEAKER) (test code serogrou p 1 antigen, = 1156) suggesting no r ecent or current infe ction with this serog roup. Legionellosis c annot be ruled out si nce other serogroup s and species may cau se disease. POCT-GLUCOSE [id number] 11:59:07 Test Item Value Reference Range Interpretation Comments POC-GLUCOSE METER 91 mg/dL 70-110 : TESTED [place]if[place] T [facility] 6720 (BEAKER) (test code [facility], = 1538) [id number]: Branch Billing Payroll Clerk/Techni mayela ID = [id number] for Marjorie motta (contract), Marcelo sharif BLOOD GAS, [id number] 10:36:01 Test Item Value Reference Range Interpretation Comments PH ARTERIAL (BEAKER) (test code = 7.31 7.35-7.45 L 383) PCO2 ARTERIAL (BEAKER) (test code 48 mm Hg 35-45 H = 384) PO2 ARTERIAL (BEAKER) (test code 78 mm Hg 80-90 L = 385) O2 SATURATION ARTERIAL (BEAKER) 94.1 % 96.0-97.0 L (test code = 386) HCO3 ARTERIAL (BEAKER) (test code 24 mmol/L 21-29 = 388) BASE EXCESS ARTERIAL (BEAKER) -2.6 mmol/L -2.0-3.0 L (test code = 387) PATIENT TEMPERATURE (BEAKER) 37.5 (test code = 1818) FIO2 (BEAKER) (test code = 1819) 50.0 (CELLAVISION MANUAL DIFF)2021-07-24 08:07:20 Test Item Value Reference Range Interpretation Comments NEUTROPHILS - REL 79 % (CELLAVISION)(BEAKER) (test code = 2816) LYMPHOCYTES - REL 9 % (CELLAVISION)(BEAKER) (test code = 2817) MONOCYTES - REL 4 % (CELLAVISION)(BEAKER) (test code = 2818) EOSINOPHILS - REL 7 % (CELLAVISION)(BEAKER) (test code = 2819) BANDS - REL (CELLAVISION)(BEAKER) 1 % 0-10 (test code = 2826) NEUTROPHILS - ABS 16.75 K/ul 1.78-5.38 H (CELLAVISION)(BEAKER) (test code = 2830) LYMPHOCYTES - ABS 1.91 K/ul 1.32-3.57 (CELLAVISION)(BEAKER) (test code = 2831) MONOCYTES - ABS 0.85 K/uL 0.30-0.82 H (CELLAVISION)(BEAKER) (test code = 2832) EOSINOPHILS - ABS 1.48 K/uL 0.04-0.54 H (CELLAVISION)(BEAKER) (test code = 2834) BANDS - ABS (CELLAVISION)(BEAKER) 0.21 K/uL 0.00-0.80 (test code = 2840) TOTAL COUNTED (BEAKER) (test code 100 = 1351) WBC MORPHOLOGY (BEAKER) (test code Normal = 487) PLT MORPHOLOGY (BEAKER) (test code Normal = 486) POLYCHROMATOPHILLIC RBCS(BEAKER) 1+ few (test code = 478) ANISOCYTOSIS (BEAKER) (test code = 1+ few 961) MICROCYTES (BEAKER) (test code = 1+ few 965) ARTIFACT (CELLAVISION)(BEAKER) Present (test code = 3432) PLATELET CONCENTRATION Adequate (CELLAVISION)(BEAKER) (test code = 3438) Branch Billing Payroll Clerk ID - Kyra Pagan comments: Slide comments:CBC W/PLT COUNT & AUTO [id number] 08:07:18 Test Item Value Reference Range Interpretation Comments WHITE BLOOD CELL COUNT (BEAKER) 21.2 K/ L 3.5-10.5 H (test code = 775) RED BLOOD CELL COUNT (BEAKER) 3.31 M/ L 4.63-6.08 L (test code = 761) HEMOGLOBIN (BEAKER) (test code = 9.4 GM/DL 13.7-17.5 L 410) HEMATOCRIT (BEAKER) (test code = 30.0 % 40.1-51.0 L 411) MEAN CORPUSCULAR VOLUME (BEAKER) 90.6 fL 79.0-92.2 (test code = 753) MEAN CORPUSCULAR HEMOGLOBIN 28.4 pg 25.7-32.2 (BEAKER) (test code = 751) MEAN CORPUSCULAR HEMOGLOBIN CONC 31.3 GM/DL 32.3-36.5 L (BEAKER) (test code = 752) RED CELL DISTRIBUTION WIDTH 12.0 % 11.6-14.4 (BEAKER) (test code = 412) PLATELET COUNT (BEAKER) (test 442 K/CU MM 150-450 code = 756) MEAN PLATELET VOLUME (BEAKER) 8.2 fL 9.4-12.4 L (test code = 754) NUCLEATED RED BLOOD CELLS 0 /100 WBC 0-0 (BEAKER) (test code = 413) CALCIUM, [id number] 06:17:31 Test Item Value Reference Range Interpretation Comments CALCIUM IONIZED (BEAKER) (test 1.13 mmol/L 1.12-1.27 code = 698) PH, BLOOD (BEAKER) (test code = 7.40 1810) BLOOD GAS, [id number] 04:06:54 Test Item Value Reference Range Interpretation Comments PH ARTERIAL (BEAKER) (test code = 7.38 7.35-7.45 383) PCO2 ARTERIAL (BEAKER) (test code 40 mm Hg 35-45 = 384) PO2 ARTERIAL (BEAKER) (test code 163 mm Hg 80-90 H = 385) O2 SATURATION ARTERIAL (BEAKER) 99.0 % 96.0-97.0 H (test code = 386) HCO3 ARTERIAL (BEAKER) (test code 23 mmol/L 21-29 = 388) BASE EXCESS ARTERIAL (BEAKER) -1.6 mmol/L -2.0-3.0 (test code = 387) PATIENT TEMPERATURE (BEAKER) 38.0 (test code = 1818) FIO2 (BEAKER) (test code = 1819) 60.0 [id number] 03:50:01 Test Item Value Reference Range Interpretation Comments PHOSPHORUS (BEAKER) (test code = 3.5 mg/dL 2.3-4.7 604) Branch Billing Payroll Clerk ID - PIAYA LBASIC METABOLIC [id number] 03:50:00 Test Item Value Reference Range Interpretation Comments SODIUM (BEAKER) 141 meq/L 136-145 (test code = 381) POTASSIUM (BEAKER) 4.2 meq/L 3.5-5.1 (test code = 379) CHLORIDE (BEAKER) 110 meq/L 98-107 H (test code = 382) CO2 (BEAKER) (test 20 meq/L 22-29 L code = 355) BLOOD UREA NITROGEN 3 mg/dL 7-21 L (BEAKER) (test code = 354) CREATININE (BEAKER) 0.67 mg/dL 0.57-1.25 (test code = 358) GLUCOSE RANDOM 88 mg/dL 70-105 (BEAKER) (test code = 652) CALCIUM (BEAKER) 8.1 mg/dL 8.4-10.2 L (test code = 697) EGFR (BEAKER) (test 177 mL/min/1.73 ESTIM ATED GFR IS code = 1092) sq m NOT ACCURATE CREATININE CLEARANCE IN PREDICTING GLOMERULAR FILTRATION RATE . ESTIMATED GFR I S NOT APPLICABLE FOR DIALYSIS PATIEN TS. Branch Billing Payroll Clerk ID - MARK [id number] 03:50:00 Test Item Value Reference Range Interpretation Comments MAGNESIUM (BEAKER) (test code = 2.0 mg/dL 1.6-2.6 627) Branch Billing Payroll Clerk ID - MARK LLACTIC ACID, [id number] 03:40:36 Test Item Value Reference Range Interpretation Comments LACTATE BLOOD ARTERIAL (2) 0.8 mmol/L 0.5-2.2 (BEAKER) (test code = 2874) Branch Billing Payroll Clerk ID - MARK LBLOOD GAS, [id number] 22:47:34 Test Item Value Reference Range Interpretation Comments PH ARTERIAL (BEAKER) (test code = 7.30 7.35-7.45 L 383) PCO2 ARTERIAL (BEAKER) (test code 50 mm Hg 35-45 H = 384) PO2 ARTERIAL (BEAKER) (test code 160 mm Hg 80-90 H = 385) O2 SATURATION ARTERIAL (BEAKER) 98.8 % 96.0-97.0 H (test code = 386) HCO3 ARTERIAL (BEAKER) (test code 24 mmol/L 21-29 = 388) BASE EXCESS ARTERIAL (BEAKER) -2.4 mmol/L -2.0-3.0 L (test code = 387) PATIENT TEMPERATURE (BEAKER) 38.0 (test code = 1818) FIO2 (BEAKER) (test code = 1819) 70.0 VANCOMYCIN LEVEL, [id number] 20:40:03 Test Item Value Reference Range Interpretation Comments VANCOMYCIN TROUGH (BEAKER) (test 11.4 ug/mL 10.0-20.0 code = 522) Branch Billing Payroll Clerk ID - ROSS [id number] 16:23:49 Test Item Value Reference Range Interpretation Comments PHOSPHORUS (BEAKER) (test code = 4.0 mg/dL 2.3-4.7 604) Branch Billing Payroll Clerk ID - ROSS [id number] 16:23:48 Test Item Value Reference Range Interpretation Comments MAGNESIUM (BEAKER) (test code = 2.2 mg/dL 1.6-2.6 627) Branch Billing Payroll Clerk ID Franck HAWKINS MBASIC METABOLIC [id number] 16:23:47 Test Item Value Reference Range Interpretation Comments SODIUM (BEAKER) 143 meq/L 136-145 (test code = 381) POTASSIUM (BEAKER) 4.6 meq/L 3.5-5.1 (test code = 379) CHLORIDE (BEAKER) 111 meq/L 98-107 H (test code = 382) CO2 (BEAKER) (test 23 meq/L 22-29 code = 355) BLOOD UREA NITROGEN 5 mg/dL 7-21 L (BEAKER) (test code = 354) CREATININE (BEAKER) 0.68 mg/dL 0.57-1.25 (test code = 358) GLUCOSE RANDOM 84 mg/dL 70-105 (BEAKER) (test code = 652) CALCIUM (BEAKER) 8.3 mg/dL 8.4-10.2 L (test code = 697) EGFR (BEAKER) (test 174 mL/min/1.73 ESTIM ATED GFR IS code = 1092) sq m NOT ACCURATE CREATININE CLEARANCE IN PREDICTING GLOMERULAR FILTRATION RATE . ESTIMATED GFR I S NOT APPLICABLE FOR DIALYSIS PATIEN TS. Branch Billing Payroll Clerk BALJIT HAWKINS MBLOOD GAS, [id number] 16:10:30 Test Item Value Reference Range Interpretation Comments PH ARTERIAL (BEAKER) (test code = 7.27 7.35-7.45 L 383) PCO2 ARTERIAL (BEAKER) (test code 58 mm Hg 35-45 H = 384) PO2 ARTERIAL (BEAKER) (test code 222 mm Hg 80-90 H = 385) O2 SATURATION ARTERIAL (BEAKER) 99.3 % 96.0-97.0 H (test code = 386) HCO3 ARTERIAL (BEAKER) (test code 25 mmol/L 21-29 = 388) BASE EXCESS ARTERIAL (BEAKER) -1.6 mmol/L -2.0-3.0 (test code = 387) PATIENT TEMPERATURE (BEAKER) 38.8 (test code = 1818) FIO2 (BEAKER) (test code = 1819) 100.0 CALCIUM, [id number] 16:09:10 Test Item Value Reference Range Interpretation Comments CALCIUM IONIZED (BEAKER) (test 1.13 mmol/L 1.12-1.27 code = 698) PH, BLOOD (BEAKER) (test code = 7.30 1810) BLOOD GAS, [id number] 12:41:55 Test Item Value Reference Range Interpretation Comments PH ARTERIAL (BEAKER) (test code = 7.27 7.35-7.45 L 383) PCO2 ARTERIAL (BEAKER) (test code 57 mm Hg 35-45 H = 384) PO2 ARTERIAL (BEAKER) (test code 198 mm Hg 80-90 H = 385) O2 SATURATION ARTERIAL (BEAKER) 99.1 % 96.0-97.0 H (test code = 386) HCO3 ARTERIAL (BEAKER) (test code 25 mmol/L -29 = 388) BASE EXCESS ARTERIAL (BEAKER) -1.9 mmol/L -2.0-3.0 (test code = 387) PATIENT TEMPERATURE (BEAKER) 38.3 (test code = 1818) FIO2 (BEAKER) (test code = 1819) 100.0 [id number] 10:58:15 Test Item Value Reference Range Interpretation Comments PROCALCITONIN (BEAKER) (test code 2.61 ng/mL <0.05 H = 3036) SEPSIS RISK (ng/mL)Low: 0.05-0.50Intermediate: 0.51-2.00High: >=2.01LACTIC ACID, [id number] 10:07:45 Test Item Value Reference Range Interpretation Comments LACTATE BLOOD ARTERIAL (2) 0.7 mmol/L 0.5-2.2 (BEAKER) (test code = 2874) Branch Billing Payroll Clerk ID - ROSS MBLOOD GAS, [id number] 09:56:33 Test Item Value Reference Range Interpretation Comments PH ARTERIAL (BEAKER) (test code = 7.25 7.35-7.45 L 383) PCO2 ARTERIAL (BEAKER) (test code 60 mm Hg 35-45 H = 384) PO2 ARTERIAL (BEAKER) (test code 90 mm Hg 80-90 = 385) O2 SATURATION ARTERIAL (BEAKER) 94.7 % 96.0-97.0 L (test code = 386) HCO3 ARTERIAL (BEAKER) (test code 25 mmol/L -29 = 388) BASE EXCESS ARTERIAL (BEAKER) -2.4 mmol/L -2.0-3.0 L (test code = 387) PATIENT TEMPERATURE (BEAKER) 38.0 (test code = 1818) FIO2 (BEAKER) (test code = 1819) 100.0 SPIN/CONCENTRATION [id number] 08:27:27 Test Item Value Reference Range Interpretation Comments CONCENTRATION CHARGED (BEAKER) (test Done code = 2657) RAD, CHEST, 1 VIEW, NON [id number] 07:51:00Reason for exam:->While intubatedShould this be performed at the bedside?->Yes [facility] 1995 Sex: MFINAL REPORT RAD, CHEST, 1 VIEW, NON DEPT INDICATION: While intubated COMPARISON: Prior day's exam FINDINGS: Portable frontal view of the chest. IMPRESSION: SupportLines: ET tube tip is 3.5 cm superior to the tatiana Lungs and pleura: Left perihilar airspace disease is unchanged. No significant pneumothorax. Heart and mediastinum: Stable contours. Additional findings: None. Signed: Linsey Tian MDReport Verified Date/Time: 07/23/2021 07:51:08 (CELLAVISION MANUAL DIFF)2021-07-23 06:07:00 Test Item Value Reference Range Interpretation Comments NEUTROPHILS - REL 82 % (CELLAVISION)(BEAKER) (test code = 2816) LYMPHOCYTES - REL 5 % (CELLAVISION)(BEAKER) (test code = 2817) MONOCYTES - REL 3 % (CELLAVISION)(BEAKER) (test code = 2818) EOSINOPHILS - REL 1 % (CELLAVISION)(BEAKER) (test code = 2819) BASOPHILS - REL 2 % (CELLAVISION)(BEAKER) (test code = 2820) METAMYELOCYTES - REL 1 % 0-0 H (CELLAVISION)(BEAKER) (test code = 2821) BANDS - REL (CELLAVISION)(BEAKER) 6 % 0-10 (test code = 2826) NEUTROPHILS - ABS 16.97 K/ul 1.78-5.38 H (CELLAVISION)(BEAKER) (test code = 2830) LYMPHOCYTES - ABS 1.04 K/ul 1.32-3.57 L (CELLAVISION)(BEAKER) (test code = 2831) MONOCYTES - ABS 0.62 K/uL 0.30-0.82 (CELLAVISION)(BEAKER) (test code = 2832) EOSINOPHILS - ABS 0.21 K/uL 0.04-0.54 (CELLAVISION)(BEAKER) (test code = 2834) BASOPHILS - ABS 0.41 K/uL 0.01-0.08 H (CELLAVISION)(BEAKER) (test code = 2835) METAMYELOCYTES - ABS 0.21 K/uL 0.00-0.00 H (CELLAVISION)(BEAKER) (test code = 2836) BANDS - ABS (CELLAVISION)(BEAKER) 1.24 K/uL 0.00-0.80 H (test code = 2840) TOTAL COUNTED (BEAKER) (test code 100 = 1351) RBC MORPHOLOGY (BEAKER) (test code Normal = 762) WBC MORPHOLOGY (BEAKER) (test code Normal = 487) PLT MORPHOLOGY (BEAKER) (test code Normal = 486) ARTIFACT (CELLAVISION)(BEAKER) Present (test code = 3432) PLATELET CONCENTRATION Increased (CELLAVISION)(BEAKER) (test code = 3438) Branch Billing Payroll Clerk ID - Paul comments: Slide comments:CBC W/PLT COUNT & AUTO [id number] 06:06:59 Test Item Value Reference Range Interpretation Comments WHITE BLOOD CELL COUNT (BEAKER) 20.7 K/ L 3.5-10.5 H (test code = 775) RED BLOOD CELL COUNT (BEAKER) 3.63 M/ L 4.63-6.08 L (test code = 761) HEMOGLOBIN (BEAKER) (test code = 10.2 GM/DL 13.7-17.5 L 410) HEMATOCRIT (BEAKER) (test code = 32.6 % 40.1-51.0 L 411) MEAN CORPUSCULAR VOLUME (BEAKER) 89.8 fL 79.0-92.2 (test code = 753) MEAN CORPUSCULAR HEMOGLOBIN 28.1 pg 25.7-32.2 (BEAKER) (test code = 751) MEAN CORPUSCULAR HEMOGLOBIN CONC 31.3 GM/DL 32.3-36.5 L (BEAKER) (test code = 752) RED CELL DISTRIBUTION WIDTH 11.7 % 11.6-14.4 (BEAKER) (test code = 412) PLATELET COUNT (BEAKER) (test 514 K/CU MM 150-450 H code = 756) MEAN PLATELET VOLUME (BEAKER) 8.2 fL 9.4-12.4 L (test code = 754) NUCLEATED RED BLOOD CELLS 0 /100 WBC 0-0 (BEAKER) (test code = 413) HEPATIC FUNCTION [id number] 05:53:10 Test Item Value Reference Range Interpretation Comments TOTAL PROTEIN (BEAKER) (test code = 6.3 gm/dL 6.0-8.3 770) ALBUMIN (BEAKER) (test code = 1145) 2.5 g/dL 3.5-5.0 L BILIRUBIN TOTAL (BEAKER) (test code 1.3 mg/dL 0.2-1.2 H = 377) BILIRUBIN DIRECT (BEAKER) (test 0.9 mg/dL 0.1-0.5 H code = 706) ALKALINE PHOSPHATASE (BEAKER) (test 58 U/L 40-150 code = 346) AST (SGOT) (BEAKER) (test code = 12 U/L 5-34 353) ALT (SGPT) (BEAKER) (test code = 12 U/L 6-55 347) Branch Billing Payroll Clerk ID - ROSS MOperator ID - ROSS [id number] 05:19:31 Test Item Value Reference Range Interpretation Comments MAGNESIUM (BEAKER) (test code = 1.7 mg/dL 1.6-2.6 627) Branch Billing Payroll Clerk ID - ROSS [id number] 05:19:31 Test Item Value Reference Range Interpretation Comments PHOSPHORUS (BEAKER) (test code = 3.8 mg/dL 2.3-4.7 604) Branch Billing Payroll Clerk ID - ROSS MBASIC METABOLIC [id number] 05:19:30 Test Item Value Reference Range Interpretation Comments SODIUM (BEAKER) 144 meq/L 136-145 (test code = 381) POTASSIUM (BEAKER) 3.7 meq/L 3.5-5.1 (test code = 379) CHLORIDE (BEAKER) 111 meq/L 98-107 H (test code = 382) CO2 (BEAKER) (test 21 meq/L 22-29 L code = 355) BLOOD UREA NITROGEN 4 mg/dL 7-21 L (BEAKER) (test code = 354) CREATININE (BEAKER) 0.65 mg/dL 0.57-1.25 (test code = 358) GLUCOSE RANDOM 96 mg/dL 70-105 (BEAKER) (test code = 652) CALCIUM (BEAKER) 8.3 mg/dL 8.4-10.2 L (test code = 697) EGFR (BEAKER) (test 183 mL/min/1.73 ESTIM ATED GFR IS code = 1092) sq m NOT ACCURATE CREATININE CLEARANCE IN PREDICTING GLOMERULAR FILTRATION RATE . ESTIMATED GFR I S NOT APPLICABLE FOR DIALYSIS PATIEN TS. Branch Billing Payroll Clerk ID - ROSS MCALCIUM, [id number] 05:04:54 Test Item Value Reference Range Interpretation Comments CALCIUM IONIZED (BEAKER) (test 1.10 mmol/L 1.12-1.27 L code = 698) PH, BLOOD (BEAKER) (test code = 7.37 1810) BLOOD GAS, [id number] 05:04:01 Test Item Value Reference Range Interpretation Comments PH ARTERIAL (BEAKER) (test code = 7.36 7.35-7.45 383) PCO2 ARTERIAL (BEAKER) (test code 44 mm Hg 35-45 = 384) PO2 ARTERIAL (BEAKER) (test code 90 mm Hg 80-90 = 385) O2 SATURATION ARTERIAL (BEAKER) 96.3 % 96.0-97.0 (test code = 386) HCO3 ARTERIAL (BEAKER) (test code 24 mmol/L 21-29 = 388) BASE EXCESS ARTERIAL (BEAKER) -1.1 mmol/L -2.0-3.0 (test code = 387) PATIENT TEMPERATURE (BEAKER) 37.5 (test code = 1818) FIO2 (BEAKER) (test code = 1819) 90.0 RAD, ABDOMEN/KUB, 1 VIEW [id number] 01:18:00Reason for exam:->NGt placementShould this be performed at the bedside?->Yes [facility] 1995 Sex: MFINAL REPORT TECHNIQUE: Supine views of the abdomen. INDICATION: NGt placement. COMPARISON: None. FINDINGS/IMPRESSION: The nasogastric tube terminates over the distalgastric body. Bowel gas pattern is nonobstructive with nondistended gaseous stomach and colon. No acute bone abnormality of the included skeleton. Signed: Manny Arteaga [facility] Verified Date/Time: 07/23/2021 01:18:51 BLOOD GAS, [id number] 22:43:43 Test Item Value Reference Range Interpretation Comments PH ARTERIAL (BEAKER) (test code = 7.29 7.35-7.45 L 383) PCO2 ARTERIAL (BEAKER) (test code 52 mm Hg 35-45 H = 384) PO2 ARTERIAL (BEAKER) (test code 155 mm Hg 80-90 H = 385) O2 SATURATION ARTERIAL (BEAKER) 98.6 % 96.0-97.0 H (test code = 386) HCO3 ARTERIAL (BEAKER) (test code 24 mmol/L 21-29 = 388) BASE EXCESS ARTERIAL (BEAKER) -2.8 mmol/L -2.0-3.0 L (test code = 387) PATIENT TEMPERATURE (BEAKER) 39.0 (test code = 1818) FIO2 (BEAKER) (test code = 1819) 100.0 COMPREHENSIVE METABOLIC [id number] 21:23:34 Test Item Value Reference Range Interpretation Comments TOTAL PROTEIN 6.5 gm/dL 6.0-8.3 (BEAKER) (test code = 770) ALBUMIN (BEAKER) 2.7 g/dL 3.5-5.0 L (test code = 1145) ALKALINE PHOSPHATASE 58 U/L 40-150 (BEAKER) (test code = 346) BILIRUBIN TOTAL 0.9 mg/dL 0.2-1.2 (BEAKER) (test code = 377) SODIUM (BEAKER) (test 137 meq/L 136-145 code = 381) POTASSIUM (BEAKER) 3.9 meq/L 3.5-5.1 (test code = 379) CHLORIDE (BEAKER) 105 meq/L 98-107 (test code = 382) CO2 (BEAKER) (test 21 meq/L 22-29 L code = 355) BLOOD UREA NITROGEN 8 mg/dL 7-21 (BEAKER) (test code = 354) CREATININE (BEAKER) 0.70 mg/dL 0.57-1.25 (test code = 358) GLUCOSE RANDOM 98 mg/dL 70-105 (BEAKER) (test code = 652) CALCIUM (BEAKER) 7.9 mg/dL 8.4-10.2 L (test code = 697) AST (SGOT) (BEAKER) 11 U/L 5-34 (test code = 353) ALT (SGPT) (BEAKER) 9 U/L 6-55 (test code = 347) EGFR (BEAKER) (test 168 ESTIMATE D GFR IS code = 1092) mL/min/1.73 sq NOT ACCURA TE m CREATININE CLEARANCE IN PREDICTING GLOMERULAR FILTRATION RATE . ESTIMATED GFR I S NOT APPLICABLE FOR DIALYSIS PATIEN TS. Branch Billing Payroll Clerk ID - [id number] 21:19:36 Test Item Value Reference Range Interpretation Comments PARTIAL THROMBOPLASTIN TIME 38.0 seconds 22.5-36.0 H (BEAKER) (test code = 760) PROTHROMBIN TIME/[id number] 21:18:33 Test Item Value Reference Range Interpretation Comments PROTIME (BEAKER) 16.5 seconds 11.9-14.2 H (test code = 759) INR (BEAKER) (test 1.36 See_Comment [Automat ed message] code = 370) The system [employer] generated this result transmitted ref erence range: <=5.90. The reference range was not used to int erpret this result as normal/abnormal . RECOMMENDED COUMADIN/WARFARIN INR THERAPY RANGESSTANDARD DOSE: 2.0 - 3.0 Includes: PROPHYLAXIS forvenous thrombosis, systemic embolization; TREATMENT for venous thrombosis and/or pulmonary embolus.HIGH RISK: Target INR is 2.5-3.5 for patients with mechanical heart valves.LACTIC ACID, [id number] 21:16:56 Test Item Value Reference Range Interpretation Comments LACTATE BLOOD VENOUS (2) (BEAKER) 1.05 mmol/L 0.50-2.20 (test code = 2872) Branch Billing Payroll Clerk ID - BSCBC W/PLT COUNT & AUTO [id number] 21:08:33 Test Item Value Reference Range Interpretation Comments WHITE BLOOD CELL COUNT (BEAKER) 20.0 K/ L 3.5-10.5 H (test code = 775) RED BLOOD CELL COUNT (BEAKER) 3.91 M/ L 4.63-6.08 L (test code = 761) HEMOGLOBIN (BEAKER) (test code = 11.1 GM/DL 13.7-17.5 L 410) HEMATOCRIT (BEAKER) (test code = 35.0 % 40.1-51.0 L 411) MEAN CORPUSCULAR VOLUME (BEAKER) 89.5 fL 79.0-92.2 (test code = 753) MEAN CORPUSCULAR HEMOGLOBIN 28.4 pg 25.7-32.2 (BEAKER) (test code = 751) MEAN CORPUSCULAR HEMOGLOBIN CONC 31.7 GM/DL 32.3-36.5 L (BEAKER) (test code = 752) RED CELL DISTRIBUTION WIDTH 11.7 % 11.6-14.4 (BEAKER) (test code = 412) PLATELET COUNT (BEAKER) (test 579 K/CU MM 150-450 H code = 756) MEAN PLATELET VOLUME (BEAKER) 8.1 fL 9.4-12.4 L (test code = 754) NUCLEATED RED BLOOD CELLS 0 /100 WBC 0-0 (BEAKER) (test code = 413) NEUTROPHILS RELATIVE PERCENT 87 % (BEAKER) (test code = 429) LYMPHOCYTES RELATIVE PERCENT 6 % (BEAKER) (test code = 430) MONOCYTES RELATIVE PERCENT 6 % (BEAKER) (test code = 431) EOSINOPHILS RELATIVE PERCENT 0 % (BEAKER) (test code = 432) BASOPHILS RELATIVE PERCENT 0 % (BEAKER) (test code = 437) NEUTROPHILS ABSOLUTE COUNT 17.30 K/ L 1.78-5.38 H (BEAKER) (test code = 670) LYMPHOCYTES ABSOLUTE COUNT 1.24 K/ L 1.32-3.57 L (BEAKER) (test code = 414) MONOCYTES ABSOLUTE COUNT (BEAKER) 1.23 K/ L 0.30-0.82 H (test code = 415) EOSINOPHILS ABSOLUTE COUNT 0.03 K/ L 0.04-0.54 L (BEAKER) (test code = 416) BASOPHILS ABSOLUTE COUNT (BEAKER) 0.06 K/ L 0.01-0.08 (test code = 417) IMMATURE GRANULOCYTES-RELATIVE 1 % 0-1 PERCENT (BEAKER) (test code = 2801) BLOOD GAS, [id number] 21:00:02 Test Item Value Reference Range Interpretation Comments PH VENOUS (BEAKER) (test code = 7.30 7.32-7.42 L 701) PCO2 VENOUS (BEAKER) (test code = 50 mm Hg 41-51 755) PO2 VENOUS (BEAKER) (test code = 124 mm Hg 25-40 H 702) O2 SATURATION VENOUS (BEAKER) 98.1 % 40.0-70.0 H (test code = 703) HCO3 VENOUS (BEAKER) (test code = 24 mmol/L 21-29 705) BASE EXCESS VENOUS (BEAKER) (test -2.7 mmol/L -2.0-3.0 L code = 704) PATIENT TEMPERATURE (BEAKER) 37.0 (test code = 1818) RAD, CHEST, 1 VIEW, NON [id number] 19:48:00Reason for exam:- >intubatedShould this be performed at the bedside?->Yes [facility]BA : 1995 Sex: MFINAL REPORT AP view of the chest dated 07/22/2021 CLINICAL INFORM ATION: intubated Comment: Heart is normal in size. Pulmonary vasculature is unremarkable. Airspace disease is seen in both lungs suggestive of multifocal pneumonia. No pleural effusion is present. Endotracheal tube is present with tip seen approximately 3 cm above the tatiana. Signed: [facility] Verified Date/Time: 07/22/2021 19:48:16 BLOOD GAS, [id number] 19:00:49 Test Item Value Reference Range Interpretation Comments PH ARTERIAL (BEAKER) (test code = 7.29 7.35-7.45 L 383) PCO2 ARTERIAL (BEAKER) (test code 47 mm Hg 35-45 H = 384) PO2 ARTERIAL (BEAKER) (test code 200 mm Hg 80-90 H = 385) O2 SATURATION ARTERIAL (BEAKER) 99.2 % 96.0-97.0 H (test code = 386) HCO3 ARTERIAL (BEAKER) (test code 22 mmol/L 21-29 = 388) BASE EXCESS ARTERIAL (BEAKER) -4.5 mmol/L -2.0-3.0 L (test code = 387) PATIENT TEMPERATURE (BEAKER) 37.8 (test code = 1818) FIO2 (BEAKER) (test code = 1819) 100.0 POCT-GLUCOSE [id number] 08:18:21 Test Item Value Reference Range Interpretation Comments POC-GLUCOSE METER 82 mg/dL 70-110 : TESTED A T BSC 6720 (BEAKER) (test code = [place], 1538) [id number]: Branch Billing Payroll Clerk/Techni mayela ID = [id number] for Naya Abbasi BASIC METABOLIC [id number] 07:33:36 Test Item Value Reference Range Interpretation Comments SODIUM (BEAKER) 138 meq/L 136-145 (test code = 381) POTASSIUM (BEAKER) 4.2 meq/L 3.5-5.1 (test code = 379) CHLORIDE (BEAKER) 104 meq/L 98-107 (test code = 382) CO2 (BEAKER) (test 23 meq/L 22-29 code = 355) BLOOD UREA NITROGEN 9 mg/dL 7-21 (BEAKER) (test code = 354) CREATININE (BEAKER) 0.75 mg/dL 0.57-1.25 (test code = 358) GLUCOSE RANDOM 86 mg/dL 70-105 (BEAKER) (test code = 652) CALCIUM (BEAKER) 8.8 mg/dL 8.4-10.2 (test code = 697) EGFR (BEAKER) (test 155 mL/min/1.73 ESTIM ATED GFR IS code = 1092) sq m NOT ACCURATE CREATININE CLEARANCE IN PREDICTING GLOMERULAR FILTRATION RATE . ESTIMATED GFR I S NOT APPLICABLE FOR DIALYSIS PATIEN TS. Branch Billing Payroll Clerk ID - NELICOMYCIN LEVEL, [id number] 04:49:14 Test Item Value Reference Range Interpretation Comments VANCOMYCIN TROUGH (BEAKER) (test 3.0 ug/mL 10.0-20.0 L code = 522) Branch Billing Payroll Clerk ID - MARK LPT/[id number] 04:36:38 Test Item Value Reference Range Interpretation Comments PROTIME (BEAKER) (test 16.1 seconds 11.9-14.2 H code = 759) INR (BEAKER) (test 1.31 See_Comment [Automat ed code = 370) message] The sy stem which generated this result transmitted reference range : <=5.90. The reference range was not used to interpret this result as normal/abnormal . PARTIAL THROMBOPLASTIN 45.8 seconds 22.5-36.0 H TIME (BEAKER) (test code = 760) RECOMMENDED COUMADIN/WARFARIN INR THERAPY RANGESSTANDARD DOSE: 2.0 - 3.0 Includes: PROPHYLAXIS forvenous thrombosis, systemic embolization; TREATMENT for venous thrombosis and/or pulmonary embolus.HIGH RISK: Target INR is 2.5-3.5 for patients with mechanical heart valves.CBC W/PLT COUNT & AUTO DIFFERENTIAL 2021-07-22 04:27:57 Test Item Value Reference Range Interpretation Comments WHITE BLOOD CELL COUNT (BEAKER) 16.7 K/ L 3.5-10.5 H (test code = 775) RED BLOOD CELL COUNT (BEAKER) 4.13 M/ L 4.63-6.08 L (test code = 761) HEMOGLOBIN (BEAKER) (test code = 11.7 GM/DL 13.7-17.5 L 410) HEMATOCRIT (BEAKER) (test code = 36.6 % 40.1-51.0 L 411) MEAN CORPUSCULAR VOLUME (BEAKER) 88.6 fL 79.0-92.2 (test code = 753) MEAN CORPUSCULAR HEMOGLOBIN 28.3 pg 25.7-32.2 (BEAKER) (test code = 751) MEAN CORPUSCULAR HEMOGLOBIN CONC 32.0 GM/DL 32.3-36.5 L (BEAKER) (test code = 752) RED CELL DISTRIBUTION WIDTH 11.3 % 11.6-14.4 L (BEAKER) (test code = 412) PLATELET COUNT (BEAKER) (test 570 K/CU MM 150-450 H code = 756) MEAN PLATELET VOLUME (BEAKER) 9.0 fL 9.4-12.4 L (test code = 754) NUCLEATED RED BLOOD CELLS 0 /100 WBC 0-0 (BEAKER) (test code = 413) NEUTROPHILS RELATIVE PERCENT 79 % (BEAKER) (test code = 429) LYMPHOCYTES RELATIVE PERCENT 10 % (BEAKER) (test code = 430) MONOCYTES RELATIVE PERCENT 8 % (BEAKER) (test code = 431) EOSINOPHILS RELATIVE PERCENT 2 % (BEAKER) (test code = 432) BASOPHILS RELATIVE PERCENT 0 % (BEAKER) (test code = 437) NEUTROPHILS ABSOLUTE COUNT 13.22 K/ L 1.78-5.38 H (BEAKER) (test code = 670) LYMPHOCYTES ABSOLUTE COUNT 1.67 K/ L 1.32-3.57 (BEAKER) (test code = 414) MONOCYTES ABSOLUTE COUNT (BEAKER) 1.38 K/ L 0.30-0.82 H (test code = 415) EOSINOPHILS ABSOLUTE COUNT 0.26 K/ L 0.04-0.54 (BEAKER) (test code = 416) BASOPHILS ABSOLUTE COUNT (BEAKER) 0.07 K/ L 0.01-0.08 (test code = 417) IMMATURE GRANULOCYTES-RELATIVE 0 % 0-1 PERCENT (BEAKER) (test code = 2801) (CELLAVISION MANUAL DIFF)2021-07-21 11:58:25 Test Item Value Reference Range Interpretation Comments NEUTROPHILS - REL 76 % (CELLAVISION)(BEAKER) (test code = 2816) LYMPHOCYTES - REL 11 % (CELLAVISION)(BEAKER) (test code = 2817) MONOCYTES - REL 10 % (CELLAVISION)(BEAKER) (test code = 2818) EOSINOPHILS - REL 2 % (CELLAVISION)(BEAKER) (test code = 2819) BANDS - REL (CELLAVISION)(BEAKER) 1 % 0-10 (test code = 2826) NEUTROPHILS - ABS 12.92 K/ul 1.78-5.38 H (CELLAVISION)(BEAKER) (test code = 2830) LYMPHOCYTES - ABS 1.87 K/ul 1.32-3.57 (CELLAVISION)(BEAKER) (test code = 2831) MONOCYTES - ABS 1.70 K/uL 0.30-0.82 H (CELLAVISION)(BEAKER) (test code = 2832) EOSINOPHILS - ABS 0.34 K/uL 0.04-0.54 (CELLAVISION)(BEAKER) (test code = 2834) BANDS - ABS (CELLAVISION)(BEAKER) 0.17 K/uL 0.00-0.80 (test code = 2840) TOTAL COUNTED (BEAKER) (test code 100 = 1351) PLT MORPHOLOGY (BEAKER) (test Normal code = 486) SMUDGE CELLS (BEAKER) (test code Present = 1371) POLYCHROMATOPHILLIC RBCS(BEAKER) 2+ moderate (test code = 478) ANISOCYTOSIS (BEAKER) (test code 1+ few = 961) MICROCYTES (BEAKER) (test code = 1+ few 965) PLATELET CONCENTRATION Increased (CELLAVISION)(BEAKER) (test code = 3438) Branch Billing Payroll Clerk ID - Paulie Vanegas comments: Slide comments:CBC W/PLT COUNT & AUTO [id number] 11:58:24 Test Item Value Reference Range Interpretation Comments WHITE BLOOD CELL COUNT (BEAKER) 17.0 K/ L 3.5-10.5 H (test code = 775) RED BLOOD CELL COUNT (BEAKER) 3.93 M/ L 4.63-6.08 L (test code = 761) HEMOGLOBIN (BEAKER) (test code = 11.2 GM/DL 13.7-17.5 L 410) HEMATOCRIT (BEAKER) (test code = 33.5 % 40.1-51.0 L 411) MEAN CORPUSCULAR VOLUME (BEAKER) 85.2 fL 79.0-92.2 (test code = 753) MEAN CORPUSCULAR HEMOGLOBIN 28.5 pg 25.7-32.2 (BEAKER) (test code = 751) MEAN CORPUSCULAR HEMOGLOBIN CONC 33.4 GM/DL 32.3-36.5 (BEAKER) (test code = 752) RED CELL DISTRIBUTION WIDTH 11.6 % 11.6-14.4 (BEAKER) (test code = 412) PLATELET COUNT (BEAKER) (test 532 K/CU MM 150-450 H code = 756) MEAN PLATELET VOLUME (BEAKER) 8.5 fL 9.4-12.4 L (test code = 754) NUCLEATED RED BLOOD CELLS 0 /100 WBC 0-0 (BEAKER) (test code = 413) HIV-1 ANTIGEN WITH HIV-1/2 [id number] 07:46:04 Test Item Value Reference Range Interpretation Comments HIV-1 ANTIGEN WITH HIV 1\\T\\2 Nonreactive Nonreactive ANTIBODY (2) (BEAKER) (test code = 2586) Branch Billing Payroll Clerk ID - ROSS MCOMPREHENSIVE METABOLIC [id number] 07:25:02 Test Item Value Reference Range Interpretation Comments TOTAL PROTEIN 7.7 gm/dL 6.0-8.3 (BEAKER) (test code = 770) ALBUMIN (BEAKER) 3.3 g/dL 3.5-5.0 L (test code = 1145) ALKALINE PHOSPHATASE 78 U/L 40-150 (BEAKER) (test code = 346) BILIRUBIN TOTAL 1.4 mg/dL 0.2-1.2 H (BEAKER) (test code = 377) SODIUM (BEAKER) (test 136 meq/L 136-145 code = 381) POTASSIUM (BEAKER) 3.6 meq/L 3.5-5.1 (test code = 379) CHLORIDE (BEAKER) 103 meq/L 98-107 (test code = 382) CO2 (BEAKER) (test 27 meq/L 22-29 code = 355) BLOOD UREA NITROGEN 12 mg/dL 7-21 (BEAKER) (test code = 354) CREATININE (BEAKER) 0.69 mg/dL 0.57-1.25 (test code = 358) GLUCOSE RANDOM 85 mg/dL 70-105 (BEAKER) (test code = 652) CALCIUM (BEAKER) 8.8 mg/dL 8.4-10.2 (test code = 697) AST (SGOT) (BEAKER) 13 U/L 5-34 (test code = 353) ALT (SGPT) (BEAKER) 17 U/L 6-55 (test code = 347) EGFR (BEAKER) (test 171 ESTIMATE D GFR IS code = 1092) mL/min/1.73 sq NOT ACCURA TE m CREATININE CLEARANCE IN PREDICTING GLOMERULAR FILTRATION RATE . ESTIMATED GFR I S NOT APPLICABLE FOR DIALYSIS PATIEN TS. Branch Billing Payroll Clerk ID - ROSS MPT/[id number] 06:37:05 Test Item Value Reference Range Interpretation Comments PROTIME (BEAKER) (test 16.0 seconds 11.9-14.2 H code = 759) INR (BEAKER) (test 1.30 See_Comment [Automat ed code = 370) message] The sy stem which generated this result transmitted reference range : <=5.90. The reference range was not used to interpret this result as normal/abnormal . PARTIAL THROMBOPLASTIN 44.4 seconds 22.5-36.0 H TIME (BEAKER) (test code = 760) RECOMMENDED COUMADIN/WARFARIN INR THERAPY RANGESSTANDARD DOSE: 2.0 - 3.0 Includes: PROPHYLAXIS forvenous thrombosis, systemic embolization; TREATMENT for venous thrombosis and/or pulmonary embolus.HIGH RISK: Target INR is 2.5-3.5 for patients with mechanical heart valves.
[2021-11-16] MEDS ORDERED: ONDANSETRON 4 MG/2 ML VIAL ONE ×3 (01:37→02:53)
[2021-11-16] MEDS ORDERED: MORPHINE 4 MG/ML SYR ONE ×5 (01:37→11:35)
[2021-11-16 02:09] LABS: Absolute Lymphocytes (CBC) 0.7 K/uL (0.7-4.9); Hematocrit 42.3 % (39.6-49.0); Lymphocytes % 6.1 % (15.3-44.8); MPV 6.6 fL (7.6-11.3); RBC Red Blood Cell Count 4.96 M/uL (4.33-5.43)
[2021-11-16 02:22] LABS: BUN Blood Urea Nitrogen 15 mg/dL (7-18); Bicarbonate 28 mmol/L (21-32); Glucose Level 103 mg/dL (74-106); Potassium 3.8 mmol/L (3.5-5.1); Sodium Level 138 mmol/L (136-145)
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
[2021-11-16 03:09] LABS: Blood Morphology Comment NOT SEEN (NOT SEEN); Platelet Estimate ADEQ
[2021-11-16] MEDS ORDERED: ONDANSETRON 4 MG/2 ML VIAL IV PRN (04:24)
[2021-11-16] MEDS: NA CHLORIDE 0.9% 1,000 ML IV SCH ×2 (04:24→14:24)
[2021-11-16 04:42] VITALS: BMI 23.3
[2021-11-16] MEDS ORDERED: NA CHLORIDE 0.9% 1,000 ML ONE ×2 (04:57→12:18)
[2021-11-16] MEDS: MORPHINE 4 MG/ML SYR IV PRN ×2 (08:28→11:37)
--- NOTE | 2021-11-16 08:34 | RAD REPORT ---
[facility]51 am CLINICAL HISTORY: Chest pain COMPARISON: November 15, 2021 FINDINGS: A pneumothorax is not seen. Left lower lobe opacity appears mildly less prominent. Right lung is clear. Heart appears borderline enlarged
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
[2021-11-16] MEDS ORDERED: HYDROCODONE/APAP 7.5/325 MG TAB PO PRN (11:32)
[2021-11-16] MEDS ORDERED: MORPHINE 2 MG/ML SYR IV PRN (11:32)
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
[2021-11-16 13:56] VITALS: O2SAT 100
[2021-11-16] MEDS ORDERED: MORPHINE 2 MG/ML SYR ONE (18:05)
[2021-11-16 18:17] VITALS: BP 146/70
[2021-11-16 20:02] VITALS: TEMP 97.7
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
== END 2021-11-16 19:04 | disposition home or self-care (01) | DRG 605 ==
LOC: ER 23:06 → ERHOLD 11-16 02:39 → OBSVTOIN 11-16 18:15
PROVIDERS: ADMIT Surgery; ATTEND Surgery
DX: S40.012A Contusion of left shoulder, initial encounter (principal); V49.49XA Driver injured in collision with other motor vehicles in traffic accident, initial encounter; Z20.822 Contact with and (suspected) exposure to COVID-19
CPT/HCPCS: 36415; 70450; 71045; 71260; 72125; 74177; 80048; 82565; 85025; 94010; 96374; 96375; 99285; G0378; J2270; J2405; J7030; Q9967; U0003